=== PATIENT | male | born 1965 | race Caucasian/White ===

== ENCOUNTER 2016-07-28 07:47 | Inpatient (IN) | payer OTHER ==
[~2016-07-28] VITALS: Ht 195.6 cm; Wt 84.4 kg
[~2016-07-28 07:47] MED LIST: ATEN-51 PO; LEVE-5 PO; LEVE100018 PO; PHEN300C2 PO; PHEN300C4 PO
[2016-07-28 08:53] LABS: CHLORIDE 102 mmol/L (97-110); POTASSIUM 3.8 mmol/L (3.5-5.1); SODIUM 141 mmol/L (135-144)
[2016-07-28 08:55] LABS: CREATININE 0.85 mg/dl (0.61-1.24)
[2016-07-28 08:56] LABS: ANION GAP 25 (8-16); CARBON DIOXIDE 18 mmol/L (21-31)
[2016-07-28 08:57] LABS: BLOOD UREA NITROGEN 13 mg/dl (7-20); CALCIUM 8.8 mg/dl (8.4-10.2); GLUCOSE 234 mg/dl (70-220)
[2016-07-28 09:01] LABS: BARBITURATES Negative (NEGATIVE); BENZODIAZEPINES Positive (NEGATIVE); CANNABINOIDS Positive (NEGATIVE); CARBAMAZEPINE (TEGRETOL) < 3.0 ug/ml (8.0-12.0); COCAINE Negative (NEGATIVE); ETHANOL < 10.0 mg/dl; OPIATES Negative (NEGATIVE)
[2016-07-28 09:04] LABS: VALPROATE < 10 ug/ml (50-100)
[2016-07-28] MEDS ORDERED: PHENYTOIN 1,000 MG in SOD CHLORIDE 0.9% 80 ML IVPB STA (09:08)
[2016-07-28 09:18] LABS: TROPONIN-I < 0.010 ng/ml (0.00-0.12)
[2016-07-28 09:23] LABS: BASOPHILS % 0.3 % (0.0-2.0); EOSINOPHILS # 0.1 10^3/ul (0.0-0.5); EOSINOPHILS % 0.4 % (0.0-7.0); HEMATOCRIT 41.4 % (42.0-52.0); HEMOGLOBIN 14.1 g/dl (14.0-18.0); LYMPHOCYTES # 1.1 10^3/ul (0.8-2.9); LYMPHOCYTES % 6.3 % (15.0-51.0); MEAN CORPUSCULAR HEMOGLOBIN 32.6 pg (29.0-33.0); MEAN CORPUSCULAR VOLUME 95.8 fl (82.0-101.0); MEAN PLATELET VOLUME 7.8 fl (7.4-10.4); MONOCYTE # 0.7 10^3/ul (0.3-0.9); MONOCYTES % 3.9 % (0.0-11.0); NEUTROPHILS % 89.1 % (39.0-77.0); PLATELET COUNT 268 10^3/UL (140-440); RED BLOOD COUNT 4.33 10^6/ul (4.70-6.10); RED CELL DISTRIBUTION WIDTH 13.3 % (11.5-14.5); UNCORRECTED WBC 16.8 10^3/ul (4.8-10.8); WHITE BLOOD COUNT 16.8 10^3/ul (4.8-10.8)
[2016-07-28 09:24] LABS: CONDITION 1
--- NOTE | 2016-07-28 09:33 | RADRPT ---
PROCEDURE: CT Brain without contrast. CLINICAL INDICATION: Seizure. Altered mental status and confusion. TECHNIQUE: A CT of the brain without contrast was performed utilizing axial sections from the skul l base through the vertex. The patient was scanned without intravenous contrast enhancement. Sagitta l and coronal reformatted images were obtained using the data from the axial images. Total exam DLP is 110.25 mGy-cm. CTDIvol is 44.26 mGy. One or more of the following dose reduction techniques we re used: Automated exposure control, adjustment of the mA and/or kV according to patient size, use o f iterative reconstruction technique. COMPARISON: None available FINDINGS: There is an old infarct with encephalomalacia in the right temporal lobe posteriorly in a region shaina suring 4.3 x 2.2 cm in AP and transverse dimensions. The fletcher and white matter differentiation is ot herwise normal. The ventricles and cisterns are normal. There is no intracranial hemorrhage or space-occupying lesion. There is no skull fracture or lytic lesion. IMPRESSION: 1. 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 2. No evidence of recent infarct. 3. No intracranial hemorrhage. 4. Otherwise unremarkable noncontrast CT scan of the brain. RPTAT: QQ .Arturo Craven MD, MD Date Time Electronically viewed and signed by .Arturo Craven MD, on 07/28/2016 09:33 .R/
--- NOTE | 2016-07-28 09:56 | ERA ---
ER Documentation Chief Complaint Date/Time DATE: 07/28/16 TIME: 09:49 Chief Complaint Seizure at home witnessed by girlfriend and RA lasted 20 min postictal HPI 51-year-old male reported history of seizure who presents to the emergency room with a witnessed seizure. EMS reports that the patient had a generalized tonic- clonic seizure that lasted approximately 20 minutes. The patient is postictal upon arrival. He was given benzodiazepines via EMS and Accu-Chek in the field was normal. There is report of possible seizure history. The patient arrives with medications that include Dilantin and Keppra. EMS was given report that the patient has been compliant with medications, no fevers, no trauma. The patient is obtunded and not able to give a history. ROS Encephalopathic unable to give history. PMhx/Soc Postictal History of Surgery: No Anesthesia Reaction: No Hx Neurological Disorder: Yes (SEIZURE) Hx Respiratory Disorders: No Hx Cardiac Disorders: Yes (HTN) Hx Psychiatric Problems: No Hx Miscellaneous Medical Probl: No Smoking Status: Unknown if ever smoked FmHx Family History: No diabetes Physical Exam Vitals Vital Signs Date Time Temp Pulse Resp B/P Pulse Ox O2 Delivery O2 Flow Rate FiO2 07/28/16 07:56 97.6 83 20 162/90 90 Physical Exam General: Sonorous, protecting airway Head: Normocephalic, atraumatic. Eyes: Pupils equally reactive, EOM intact ENT: Dry mucous membranes Neck: Supple, no lymphadenopathy Respiratory: Lungs clear bilaterally, no distress Cardiovascular: RRR, no murmurs, rubs, or gallops Abdominal: Soft, non-tender, non-distended, no peritoneal signs : Deferred MSK: No edema, no unilateral swelling Neurologic: Sonorous and postictal, appears to be moving all 4 extremities Skin: No rash Result Diagram: 07/28/16 0845 07/28/16 0820 Results 24 hrs Laboratory Tests Test 07/28/16 08:20 07/28/16 08:45 Anion Gap 25 Blood Urea Nitrogen 13mg/dl Calcium Level 8.8mg/dl Carbamazepine (Tegretol) Level < 3.0ug/ml Carbon Dioxide Level 18mmol/L Chloride Level 102mmol/L Creatinine 0.85mg/dl Ethyl Alcohol Level < 10.0mg/dl Glucose Level 234mg/dl Phenytoin (Dilantin) Level 3.3ug/ml Potassium Level 3.8mmol/L Sodium Level 141mmol/L Troponin I < 0.010ng/ml Urine Amphetamines Screen Negative Urine Barbiturates Negative Urine Benzodiazepines Screen Positive Urine Cannabinoids Positive Urine Cocaine Screen Negative Urine Opiates Screen Negative Valproic Acid (Depakene) Level < 10ug/ml Basophils # 0.010^3/ul Basophils % 0.3% Eosinophils # 0.110^3/ul Eosinophils % 0.4% Hematocrit 41.4% Hemoglobin 14.1g/dl Lymphocytes # 1.110^3/ul Lymphocytes % 6.3% Mean Corpuscular Hemoglobin 32.6pg Mean Corpuscular Hemoglobin Concent 34.0g/dl Mean Corpuscular Volume 95.8fl Mean Platelet Volume 7.8fl Monocytes # 0.710^3/ul Monocytes % 3.9% Neutrophils # 15.010^3/ul Neutrophils % 89.1% Nucleated Red Blood Cells # 0.010^3/ul Nucleated Red Blood Cells % 0.0/100WBC Platelet Count 12293^3/UL Red Blood Count 4.3310^6/ul Red Cell Distribution Width 13.3% White Blood Count 16.810^3/ul Current Medications Medications (Trade) Dose Ordered Sig/Yessy Route PRN Reason Start Time Stop Time Status Last Admin Dose Admin Phenytoin/Sodium Chloride (Dilantin/NS) 100 ml @ 200 mls/hr ONCE STAT IVPB 07/28/16 09:08 07/28/16 09:37 DC Procedures/MDM EKG, MONITORS, & DIAGNOSTIC IMAGING: EKG: I reviewed and interpreted a 12-lead EKG. Rhythm: Normal sinus rhythm Ectopy: None Intervals: No abnormalities ST segments: No elevations or depressions T waves: No contiguous inversions CT brain: IMPRESSION: 1. 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 2. No evidence of recent infarct. 3. No intracranial hemorrhage. 4. Otherwise unremarkable noncontrast CT scan of the brain. RPTAT: QQ LAB INTERPRETATION: Leukocytosis that is likely secondary to seizure, no evidence of infection subtherapeutic Dilantin MEDICAL DECISION MAKING: The patient presents in a postictal state likely secondary to a complex generalized tonic-clonic seizure. The seizure lasted for reported 20 minutes that seems to be reliable from phone call to EMS arrival. Seizure was responsive to benzodiazepine. Accu-Chek was normal. The patient does take seizure medication including Dilantin and Keppra. This is possibly related to medication noncompliance. However, no family is available to corroborate history. No signs of infection or trauma. ER COURSE: The patient continued to be sonorous with only mild improvement during a 2 hour observation in the emergency department. He continues to protect his airway and hypoxia has been corrected with supplemental oxygen. The patient is more appropriate and awake. The patient was found to be subtherapeutic on his Dilantin. Dilantin load was initiated. The patient has had no further seizure but continues to have significant postictal state. Unclear baseline given the patient's CT showing chronic encephalomalacia however given the complex presentation I believe inpatient hospitalization would be appropriate. The patient did have leukocytosis that is likely secondary to demargination in the setting of seizure. No evidence of infection, no fever, no evidence of meningitis. No indication for lumbar puncture. Inpatient hospitalization with observation would be appropriate. I kept the patient and/or family informed of laboratory and diagnostic imaging results throughout the emergency room course. DISPOSITION PLAN: Medical surgical admission CONSULTATION: Accepting care team and consultations: I discussed the current laboratory data, diagnostic imaging and emergency care provided. Admitting team: Dr. Rodriguez Admitting team indication: Insurance directed Departure Diagnosis: Primary Impression: Subtherapeutic serum dilantin level Additional Impressions: Generalized tonic-clonic seizure Leukocytosis Qualified Code: D72.829 - Leukocytosis, unspecified type Encephalopathy acute Condition: Stable CARMELA SINGH MD Jul 28, 2016 09:56
[2016-07-28] MEDS ORDERED: ACETAMINOPHEN 325 MG TAB PO PRN (10:00)
[2016-07-28] MEDS ORDERED: ONDANSETRON 4 MG INJ IV PRN ×2 (10:00→14:30)
[2016-07-28] MEDS ORDERED: PHEN100C PO (10:31)
[2016-07-28] MEDS ORDERED: LEVE10006 PO (10:32)
[2016-07-28] MEDS ORDERED: ATEN-51 PO (10:32)
[2016-07-28] MEDS ORDERED: NACL 0.9% 3 ML SYG IV SCH (14:30)
[2016-07-28] MEDS ORDERED: morphine 2 MG INJ IV PRN (14:30)
[2016-07-28] MEDS ORDERED: ALBUTEROL/IPRATROPIUM (NEB) 3 ML AMP HHN PRN (14:30)
[2016-07-28] MEDS ORDERED: ACETAMINOPHEN 650 MG SUPP PR PRN (14:30)
[2016-07-28] MEDS ORDERED: GLUCOSE GEL 15 GRAM TUBE PO PRN ×4 (15:00→16:00)
[2016-07-28] MEDS ORDERED: GLUCAGON 1 MG INJ IM PRN ×2 (15:00→16:00)
[2016-07-28] MEDS ORDERED: DEXTROSE 50% 50 ML SYRINGE IV PRN ×4 (15:00→16:00)
[2016-07-28] MEDS ORDERED: GLUCOSE GEL 15 GRAM TUBE BUCCAL PRN ×2 (15:00→16:00)
[2016-07-28 15:33] VITALS: TEMP 99.1
[2016-07-28 16:57] VITALS: BP 122/69; PULSE 100; RESP 20; Ht 195.6 cm; Wt 84.4 kg
[2016-07-28] MEDS: ATENOLOL 25 MG TAB PO SCH (17:31)
[2016-07-28] MEDS: DEXTROSE 5%-0.45% NACL 1,000 ML IV SCH (17:41)
[2016-07-28] MEDS: INSULIN ASPART [NOVOLOG] 3 ML PEN SC SCH ×3 (17:43→21:00)
--- NOTE | 2016-07-28 18:08 | HP ---
DATE OF ADMISSION: 07/28/2016 TIME SEEN: 11:00 a.m. CHIEF COMPLAINT: Seizure. HISTORY OF PRESENT ILLNESS: The patient is a 51-year-old male with a history of seizure, hypertensi on and CVA per CT scan, who was brought to the ER from home after a witnessed tonic-clonic type of s eizure. Reportedly the seizure lasted about 20 minutes, and the patient seems to be compliant with his anti-seizure medications. The patient received 5 mg of Versed enroute to the emergency room. W hen he presented to the ER, patient was obtunded and was not able to give any history. CT in the ER showed old infarct with encephalomalacia in the right temporal lobe. Laboratory value shows a WBC of almost 17,000, bicarb 18 and glucose 234. His initial blood pressure 162/90, heart rate 83, resp iratory rate 20, temperature 97.6, oxygen saturation 90% on room air and currently 97% on 2 liters. When I asked the patient, he was lying in the gurney in no acute distress, no sign of seizure. Jackson maribel, he is aphasic and did not answer any questions and did not follow any commands, even though his eyes are wide open and is awake and able to move all his extremities spontaneously. The patient wa s given Dilantin in the ER. REVIEW OF SYSTEMS: Unable to fully assess. PAST MEDICAL HISTORY: As per HPI. PAST SURGICAL HISTORY: Unknown. SOCIAL HISTORY: Unknown. ALLERGIES: Unknown. HOME MEDICATIONS: Listed include atenolol, Keppra and Dilantin. PHYSICAL EXAMINATION: VITAL SIGNS: Blood pressure 155/87, heart rate 90, respiratory rate 18, temperature 98.4, oxygen sa turation 95% on 2 liters. GENERAL: The patient lying on a gurney, is awake, spontaneously moving all extremities; however, is nonverbal at this point and not following any commands. HEENT: No obvious head deformity. His pupils are reactive to light. CARDIOVASCULAR: Tachycardic with regular rhythm. LUNGS: Clear. ABDOMEN: Soft. No grimaces noted on palpation. There are positive bowel sounds. EXTREMITIES: No edema. NEUROLOGIC: The patient not following any commands; however, not able to fully assess, but noted th at he is spontaneously able to move all extremities. LABORATORY: Pertinent positives as mentioned in the HPI. IMAGING: Brain CT shows old infarct with encephalomalacia in the right temporal lobe, otherwise no evidence of recent infarct, hemorrhage or shift. IMPRESSION: 1. Seizure, currently postictal state. 2. Altered mental status secondary to postictal state. 3. Hypertension. 4. Systemic inflammatory response syndrome, as evidenced by leukocytosis and tachycardia, likely se izure induced. 5. Systemic inflammatory response syndrome as evidenced by leukocytosis and tachycardia, likely str ess-induced from the seizure. 6. Hyperglycemia, unknown if the patient is diabetic, but will check an A1c. 7. History of old cerebrovascular accident with encephalomalacia. PLAN: The patient will be admitted to telemetry unit. Seizure precaution will be implemented. CT of the head as mentioned above showed old infarct with encephalomalacia. We will obtain an MRI of t he brain. He will not be continued with Dilantin and Keppra and as needed Ativan will be added. Wi ll check his Dilantin level. We will place a neurology consult. Given the presentation of SIRS, wh ich could be stress-induced from seizure, but will work him up for possible infectious etiologies wh ich could potentially be also trigger for seizure. I will order a chest x-ray and urinalysis, as we ll as a urine culture and blood culture. Will check lactic acid and will also check for a CK creati nine kinase. In the morning, we will check for A1c given presentation of hyperglycemia within a pat ient at least at this point not known to be diabetic. Further workup and management will be per clinical course. Dictated By: VIC JUDD/MIKE Conf#: [id number] DID#: [id number]
[2016-07-28 20:08] VITALS: BP 141/74; RESP 18
[2016-07-28] MEDS: LEVETIRACETAM 500 MG TAB PO SCH (21:33)
[2016-07-28] MEDS: PHENYTOIN 100 MG CAP PO SCH (21:33)
[2016-07-28] MEDS: HEPARIN 5,000 UNIT/0.5 ML SYG SC SCH (21:34)
[2016-07-28] MEDS: INSULIN GLARGINE [LANtus] 3 ML PEN SC SCH (21:35)
[2016-07-29] MEDS ORDERED: INSULIN ASPART [NOVOLOG] 3 ML PEN SC SCH
[2016-07-29] MEDS: DEXTROSE 5%-0.45% NACL 1,000 ML IV SCH ×2 (00:30→10:30)
[2016-07-29] MEDS: Insulin NOVOLOG SS MODERATE Algorithm(NPO/TPN/ENTERAL FEEDS) SC SCH ×4 (00:52→17:07)
[2016-07-29] MEDS ORDERED: ACCUCHECK AT 2AM (Patients on SS coverage) XX SCH (02:00)
[2016-07-29] MEDS: HALOPERIDOL 5 MG INJ IM PRN ×3 (02:41→15:34)
[2016-07-29] MEDS: LORAZEPAM 2 MG INJ IV PRN ×3 (05:14→21:13)
[2016-07-29] MEDS ORDERED: ACCUCHECK XX SCH (06:00)
[2016-07-29 06:37] LABS: BASOPHILS % 0.1 % (0.0-2.0); HEMATOCRIT 41.9 % (42.0-52.0); HEMOGLOBIN 14.7 g/dl (14.0-18.0); LYMPHOCYTES # 0.8 10^3/ul (0.8-2.9); LYMPHOCYTES % 4.2 % (15.0-51.0); MEAN CORPUSCULAR HEMOGLOBIN 32.8 pg (29.0-33.0); MEAN CORPUSCULAR HGB CONC 34.9 g/dl (32.0-37.0); MEAN CORPUSCULAR VOLUME 93.7 fl (82.0-101.0); MEAN PLATELET VOLUME 7.9 fl (7.4-10.4); MONOCYTE # 0.8 10^3/ul (0.3-0.9); MONOCYTES % 4.2 % (0.0-11.0); NEUTROPHIL # 16.8 10^3/ul (1.6-7.5); NEUTROPHILS % 91.5 % (39.0-77.0); PLATELET COUNT 264 10^3/UL (140-440); RED BLOOD COUNT 4.47 10^6/ul (4.70-6.10); RED CELL DISTRIBUTION WIDTH 13.1 % (11.5-14.5); UNCORRECTED WBC 18.4 10^3/ul (4.8-10.8); WHITE BLOOD COUNT 18.4 10^3/ul (4.8-10.8)
[2016-07-29 06:44] LABS: CONDITION 1; LH ANALYZER COMMENTS 1
[2016-07-29 06:47] LABS: ALBUMIN 4.6 g/dl (3.3-4.9)
[2016-07-29 06:48] LABS: POTASSIUM 3.8 mmol/L (3.5-5.1)
[2016-07-29 06:49] LABS: CREATININE 0.6 mg/dl (0.61-1.24)
[2016-07-29 06:50] LABS: ALBUMIN/GLOBULIN RATIO 1.35; BILIRUBIN,INDIRECT 0.4 mg/dl (0-1.1); BILIRUBIN,TOTAL 0.4 mg/dl (0.2-1.3); CALCIUM 9.5 mg/dl (8.4-10.2); MAGNESIUM 1.8 mg/dl (1.7-2.5)
[2016-07-29 06:51] LABS: CHOL/HDL RATIO 2.4 RATIO
[2016-07-29 07:18] LABS: THYROID STIMULATING HORMONE 1.08 MIU/L (0.465-4.680)
[2016-07-29 07:32] VITALS: BP 160/98; RESP 20
[2016-07-29] MEDS: ASPIRIN 81 MG TAB PO SCH (09:18)
[2016-07-29] MEDS: LEVETIRACETAM 500 MG TAB PO SCH ×2 (09:18→20:57)
[2016-07-29] MEDS: HEPARIN 5,000 UNIT/0.5 ML SYG SC SCH (09:20)
[2016-07-29] MEDS: ATENOLOL 25 MG TAB PO SCH (09:21)
[2016-07-29] MEDS ORDERED: DIPHENHYDRAMINE 50 MG INJ IV PRN (13:00)
[2016-07-29] MEDS ORDERED: DIPHENHYDRAMINE 50 MG INJ IV ONE (13:00)
--- NOTE | 2016-07-29 15:55 | PN ---
Date/Time of Note Date/Time of Note DATE: 07/29/16 TIME: 15:50 Assessment/Plan VTE Prophylaxis VTE Prophylaxis Intervention: SCD's Lines/Catheters IV Catheter Type (from Nrs): Peripheral IV Urinary Cath still in place: No Assessment/Plan Assessment/Plan 1. Seizure, currently postictal state. - continue with keppra, neuro c/s, cannot complete MRI brain because of agitation, EEG, ativan prn 2. Altered mental status secondary to postictal state - toxic metabolic encephalopathy 3. Hypertension essential - hold medications 4. Systemic inflammatory response syndrome, as evidenced by leukocytosis and tachycardia, likely seizure induced. - stable 6. Hyperglycemia- A1c - 5.7 7. Old cerebrovascular accident with encephalomalacia - monitor acute changes 8. GI ppx - pepcid 9. DVT ppx - scds dispo - f/u recs, EEG, monitor for overriding seizures, as per clinical course. this progress note took greater than 40 minutes to complete Subjective 24 Hr Interval Summary Free Text/Dictation Patient admitted for seizures on medications. Patient has been agitated, with waxing and waning of mentation as per nursing. Spoke to the nurse about the care plan. 20 minutes spent. Exam/Review of Systems Vital Signs Vitals Vital Signs Date Time Temp Pulse Resp B/P Pulse Ox O2 Delivery O2 Flow Rate FiO2 07/29/16 07:32 98.1 98 20 160/98 96 07/28/16 16:57 Room Air 07/28/16 12:30 2.0 Intake and Output 07/28/16 07/28/16 07/29/16 15:00 23:00 07:00 Intake Total 100 ml 300 ml Output Total 500 ml 300 ml Balance -500 ml -200 ml 300 ml Exam Gen Omi: NAD, confused HEENT: NC/AT, PERRLA, EOMI, no pharyngeal erythema, no tonsillar exudates, no lymphadenopathy, no JVD, no carotid bruits NECK: supple, no thyromegaly THORAX: symmetrical, no obvious deformities CV: S1S2, RRR, no M/G/R Lungs: CTAB no W/C/R/R Abd: soft, NT/ND, +BS, no rebound, no guarding, neg HSM EXT: no edema, no ecchymosis, no clubbing, FROM Neuro: stares blankly, otherwise no acute changes Psych: withdrawn Skin: C/D/I Results Result Diagram: 07/29/16 0554 07/29/16 0554 Results 24 hrs Laboratory Tests Test 07/28/16 17:39 07/28/16 21:26 07/29/16 00:11 07/29/16 05:54 Bedside Glucose 183 173 196 Alanine Aminotransferase (ALT/SGPT) 31 Albumin 4.6 Albumin/Globulin Ratio 1.35 Alkaline Phosphatase 111 Anion Gap 19 H Aspartate Amino Transf (AST/SGOT) 52 H Basophils # 0.0 Basophils % 0.1 Blood Urea Nitrogen 15 Calcium Level 9.5 Carbon Dioxide Level 25 Chloride Level 100 Cholesterol Level 188 Cholesterol/HDL Ratio 2.4 Creatinine 0.60 L Direct Bilirubin 0.00 Eosinophils # 0.0 Eosinophils % 0.0 Globulin 3.40 H Glucose Level 167 HDL Cholesterol 78 H Hematocrit 41.9 L Hemoglobin 14.7 Indirect Bilirubin 0.4 LDL Cholesterol, Calculated 88 Lymphocytes # 0.8 Lymphocytes % 4.2 L Magnesium Level 1.8 Mean Corpuscular Hemoglobin 32.8 Mean Corpuscular Hemoglobin Concent 34.9 Mean Corpuscular Volume 93.7 Mean Platelet Volume 7.9 Monocytes # 0.8 Monocytes % 4.2 Neutrophils # 16.8 H Neutrophils % 91.5 H Nucleated Red Blood Cells # 0.0 Nucleated Red Blood Cells % 0.0 Platelet Count 264 Potassium Level 3.8 Red Blood Count 4.47 L Red Cell Distribution Width 13.1 Sodium Level 140 Thyroid Stimulating Hormone (TSH) 1.080 Total Bilirubin 0.4 Total Protein 8.0 Triglycerides Level 110 White Blood Count 18.4 H Test 07/29/16 05:59 07/29/16 06:37 07/29/16 12:14 Hemoglobin A1c 5.7 Bedside Glucose 156 134 Medications Medications Current Medications Dextrose/Sodium Chloride (D5-1/2ns) 1,000 ml @ 100 mls/hr Q10H IV Last administered on 07/28/16 17:41; Admin Dose 100 MLS/HR; Start 07/28/16 at 14:30 Lorazepam (Ativan) 0.5 mg Q6H PRN IV ANXIETY Last administered on 07/29/16 12: 21; Admin Dose 0.5 MG; Start 07/28/16 at 14:30 Ondansetron HCl (Zofran Inj) 4 mg Q6H PRN IV NAUSEA AND/OR VOMITING Last administered on 07/28/16 17:40; Admin Dose 4 MG; Start 07/28/16 at 14:30 Aspirin (Aspirin) 81 mg DAILY PO Last administered on 07/29/16 09:18; Admin Dose 81 MG; Start 07/29/16 at 09:00 Acetaminophen (Tylenol Supp) 650 mg Q6H PRN ND PAIN LEVEL 1-3 OR FEVER; Start 07/28/16 at 14:30 Morphine Sulfate (morphine) 2 mg Q4H PRN IV PAIN LEVEL 7-10; Start 07/28/16 at 14:30 Insulin Glargine (Lantus) 10 unit HS SC Last administered on 07/28/16 21:35; Admin Dose 10 UNIT; Start 07/28/16 at 21:00 Atenolol (Tenormin) 25 mg DAILY PO Last administered on 07/29/16 09:21; Admin Dose 25 MG; Start 07/28/16 at 14:30 Levetiracetam (Keppra) 1,000 mg BID PO Last administered on 07/29/16 09:18; Admin Dose 1,000 MG; Start 07/28/16 at 21:00 Phenytoin (Dilantin) 100 mg HS PO Last administered on 07/28/16 21:33; Admin Dose 100 MG; Start 07/28/16 at 21:00 Lorazepam (Ativan) 2 mg Q1H PRN IV SEIZURE; Start 07/28/16 at 14:30 Miscellaneous Information 1 ea NOTE XX ; Start 07/28/16 at 15:00 Glucose (Glutose) 15 gm Q15M PRN PO DECREASED GLUCOSE; Start 07/28/16 at 15:00 Glucose (Glutose) 22.5 gm Q15M PRN PO DECREASED GLUCOSE; Start 07/28/16 at 15:00 Dextrose (D50w Syringe) 25 ml Q15M PRN IV DECREASED GLUCOSE; Start 07/28/16 at 15:00 Dextrose (D50w Syringe) 50 ml Q15M PRN IV DECREASED GLUCOSE; Start 07/28/16 at 15:00 Glucagon (Glucagen) 1 mg Q15M PRN IM DECREASED GLUCOSE; Start 07/28/16 at 15:00 Glucose (Glutose) 15 gm Q15M PRN BUCCAL DECREASED GLUCOSE; Start 07/28/16 at 15: 00 Influenza Virus Vaccine (Fluzone) 0.5 ml ONCE ONCE IM* ; Start 07/31/16 at 09:00 ; Stop 07/31/16 at 09:01 Insulin Aspart (Novolog Insulin Pen) (Adult SC Insulin - Moder... Q6 SC Last administered on 07/29/16 06:40; Admin Dose 2 UNIT; Start 07/29/16 at 00:45 Haloperidol (Haldol) 4 mg Q4 PRN IM AGITATION Last administered on 07/29/16 15: 34; Admin Dose 4 MG; Start 07/29/16 at 02:30 Diphenhydramine HCl (Benadryl) 50 mg Q6H PRN IV agitation; Start 07/29/16 at 13: 00 HILARY HU MD Jul 29, 2016 15:55
[2016-07-29 20:45] VITALS: BP 132/89; RESP 20
[2016-07-29] MEDS: PHENYTOIN 100 MG CAP PO SCH (20:57)
[2016-07-29] MEDS: INSULIN GLARGINE [LANtus] 3 ML PEN SC SCH (20:59)
[2016-07-30] MEDS: Insulin NOVOLOG SS MODERATE Algorithm(NPO/TPN/ENTERAL FEEDS) SC SCH ×4 (00:43→17:54)
[2016-07-30] MEDS: HALOPERIDOL 5 MG INJ IM PRN (02:32)
[2016-07-30 05:54] LABS: BASOPHIL # 0.1 10^3/ul (0.0-0.1); BASOPHILS % 0.5 % (0.0-2.0); HEMATOCRIT 44.6 % (42.0-52.0); HEMOGLOBIN 15.2 g/dl (14.0-18.0); LYMPHOCYTES % 6.7 % (15.0-51.0); MEAN CORPUSCULAR HEMOGLOBIN 32.2 pg (29.0-33.0); MEAN CORPUSCULAR VOLUME 94.7 fl (82.0-101.0); MEAN PLATELET VOLUME 7.7 fl (7.4-10.4); MONOCYTE # 1.1 10^3/ul (0.3-0.9); MONOCYTES % 7.6 % (0.0-11.0); NEUTROPHIL # 12.5 10^3/ul (1.6-7.5); NEUTROPHILS % 85.2 % (39.0-77.0); PLATELET COUNT 260 10^3/UL (140-440); RED BLOOD COUNT 4.71 10^6/ul (4.70-6.10); RED CELL DISTRIBUTION WIDTH 12.9 % (11.5-14.5); UNCORRECTED WBC 14.7 10^3/ul (4.8-10.8); WHITE BLOOD COUNT 14.7 10^3/ul (4.8-10.8)
[2016-07-30 05:59] LABS: CONDITION 1
[2016-07-30 06:18] LABS: ALBUMIN 4.8 g/dl (3.3-4.9); POTASSIUM 4.3 mmol/L (3.5-5.1)
[2016-07-30 06:20] LABS: CREATININE 0.67 mg/dl (0.61-1.24)
[2016-07-30 06:21] LABS: ALBUMIN/GLOBULIN RATIO 1.26; BILIRUBIN,INDIRECT 0.4 mg/dl (0-1.1); BILIRUBIN,TOTAL 0.4 mg/dl (0.2-1.3); CALCIUM 9.9 mg/dl (8.4-10.2); TOTAL PROTEIN 8.6 g/dl (6.1-8.1)
[2016-07-30] MEDS: ATENOLOL 25 MG TAB PO SCH (09:00)
[2016-07-30] MEDS: ASPIRIN 81 MG TAB PO SCH (09:00)
[2016-07-30] MEDS: LEVETIRACETAM 500 MG TAB PO SCH ×2 (09:00→21:01)
[2016-07-30 09:12] VITALS: BP 158/98; RESP 22
[2016-07-30] MEDS: LORAZEPAM 2 MG INJ IV PRN (14:49)
[2016-07-30] MEDS ORDERED: hydrALAzine 20 MG INJ IV PRN (16:30)
--- NOTE | 2016-07-30 16:50 | PN ---
DATE: 07/30/2016 TIME OF EVALUATION: 1530. SUBJECTIVE DATA: The patient remains confused. The patient is being taken for a brain MRI. OBJECTIVE DATA: VITAL SIGNS: Temperature 97.8, pulse rate 80, respiratory rate 22, blood pressure 158/98, oxygen saturation 94% on room air. GENERAL: This is a 51-year-old male patient lying in bed in no apparent distress. HEENT: Head normocephalic and atraumatic. Anicteric sclerae. Conjunctivae clear. ENT: Nasal septum is midline. Oral mucosa is dry. NECK: Supple. No JVD noticed. RESPIRATORY: Bilaterally diminished breath sounds. No adventitious breath sounds. No use of accessory muscles of respiration. CARDIAC: Regular rate and rhythm. No murmurs heard. ABDOMEN: Soft, nontender and nondistended. Bowel sounds positive in all 4 quadrants. GENITOURINARY: Deferred. EXTREMITIES: No cyanosis, no clubbing, no edema. Peripheral pulses palpable. NEUROLOGIC: The patient is awake and alert. Blank stare. Does not follow any commands. PSYCHIATRIC: Withdrawn. LABORATORY AND DIAGNOSTIC DATA: WBC 14.7, hemoglobin 15.0, hematocrit 44.6, platelet count 260. Sodium 140, potassium 4.3, chloride 104, carbon dioxide 20 , anion gap 23, BUN 20, creatinine 0.6, glucose 151, calcium 9.9. ASSESSMENT AND PLAN: 1. Seizure disorder. Continue anticonvulsants. Continue seizure precautions. Pending brain MRI and electroencephalography. Continue Ativan p.r.n. for breakthrough seizures. 2. Acute encephalopathy, most probably secondary to postictal state (toxic metabolic encephalopathy). Pending brain MRI and electroencephalography. 3. Dysphagia, most probably secondary to underlying encephalopathy. Was seen and evaluated by Speech Therapy. Continue recommended diet. Continue to monitor the patient for aspiration. 4. Essential hypertension. Continue antihypertensives including p.r.n. antihypertensives. 5. Systemic inflammatory response syndrome with leukocytosis and tachycardia. Most probably non-infectious in origin. The patient remains afebrile. Continue to monitor. 6. Hyperglycemia. Hemoglobin A1c 5.7. Continue sliding scale insulin. 7. Hypernatremia, most probably secondary to dehydration. Will continue the patient on IV fluids. 8. Fluid, electrolytes and nutrition. Pureed diet. Aspiration precautions. 9. Deep venous thrombosis prophylaxis with bilateral sequential compression devices. 10. Gastrointestinal prophylaxis. Histamine 2 receptor blockers. 11. Plan. Continue seizure prophylaxis. Continue anti-seizure medications. Await results of brain MRI and electroencephalography. Case discussed with Dr. Victor. BLADE VICTOR MD, AM/MIKE Conf#: [id number] DID#: [id number]
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
--- NOTE | 2016-07-30 17:23 | RADRPT ---
AMENDMENT: 07/30/2016 5:32:17 PM Amado Padron (Joe) Results called to the patient's nurse John Banegas RN at 05:27 p.m., 07/30/2016. PROCEDURE: MRI Brain without contrast. CLINICAL INDICATION: Seizures TECHNIQUE: Multiplanar MRI of the brain without contrast was performed on a 3.0 T scanner with the following sequences obtained: T1-weighted, T2-weighted/FLAIR, diffusion weighted (with ADC map), GR E. COMPARISON: CT brain 05/01/2015 FINDINGS: There are patient motion related artifacts somewhat limiting evaluation. There are areas of increased T2-weighted signal intensity involving the mesial right temporal lobe e xtending into the right thalamus, and also involving the parasagittal right frontal region along the cingulate gyrus with associated increased T2-weighted FLAIR signal intensity; these areas appear re latively isointense on the ADC map. No intracranial hemorrhage is seen. There is an area of enceph alomalacia in the right temporal lobe with mild adjacent gliosis. No significant mass effect is seen. No midline shift is identified. The ventricles and sulci are mildly enlarged, compatible with generalized volume loss. Flow voids are identified in the proximal intracranial arteries and dural sinuses suggesting patency . The mastoid air cells and paranasal sinuses are grossly clear. IMPRESSION: 1. Signal abnormality in the mesial right temporal lobe, adjacent thalamus, and right frontal/cingu late gyrus region. Findings may reflect postictal changes. Differential considerations include rec ent ischemic changes; herpes encephalitis should be also considered, and excluded. 2. Right temporal encephalomalacia. 3. Mild generalized volume loss. 4. Evaluation somewhat limited due to motion. RPTAT: EE .Amado Padron MD, MD Date Time Electronically viewed and signed by .Amado Padron MD, MD on 07/30/2016 17:33 .O/
[2016-07-30] MEDS: SOD CHLORIDE 0.45% 1,000 ML IV SCH ×2 (17:50→21:14)
[2016-07-30] MEDS: FAMOTIDINE 20 MG INJ IV SCH (17:59)
[2016-07-30 19:42] VITALS: BP 156/93; RESP 20
[2016-07-30] MEDS: INSULIN GLARGINE [LANtus] 3 ML PEN SC SCH (20:57)
[2016-07-30] MEDS: PHENYTOIN 100 MG CAP PO SCH (21:01)
--- NOTE | 2016-07-30 22:17 | SP ---
DATE OF PROCEDURE: 07/30/2016 PROCEDURE: Electroencephalogram. HISTORY: This is a 51-year-old male with history of traumatic brain injury and stroke, was admitted following possible seizures. CURRENT MEDICATIONS: Not known. PROCEDURE: Utilizing a 16-channel EEG machine, cap scalp electrodes were applied in accordance with International 10/20 system. [id number] and [id number] montages were displayed. Electrical i mpedances were measured and reported. DESCRIPTION: During the resting state, posterior dominant rhythm of about 7 to 8 Hz was seen bihemi spherically. Intermittent epileptiform activity, mainly in the left frontal region was seen through out the tracing. Photic stimulation had no response. Hyperventilation was not performed. INTERPRETATION: This is an abnormal EEG because of presence of generalized bihemispheric background slowing with intermittent epileptiform discharges in the left frontal region, which is epileptogeni c. Please correlate these findings with the patient's clinical picture. Dictated By: EKATERINA HART/MIKE Conf#: [id number] DID#: [id number]
[2016-07-31] MEDS: Insulin NOVOLOG SS MODERATE Algorithm(NPO/TPN/ENTERAL FEEDS) SC SCH ×4 (00:21→18:00)
[2016-07-31 06:24] LABS: EOSINOPHILS % 0.1 % (0.0-7.0); HEMOGLOBIN 15.2 g/dl (14.0-18.0); LYMPHOCYTES # 1.2 10^3/ul (0.8-2.9); LYMPHOCYTES % 10.2 % (15.0-51.0); MEAN CORPUSCULAR HEMOGLOBIN 32.7 pg (29.0-33.0); MEAN CORPUSCULAR HGB CONC 34.5 g/dl (32.0-37.0); MEAN CORPUSCULAR VOLUME 94.6 fl (82.0-101.0); MEAN PLATELET VOLUME 7.9 fl (7.4-10.4); MONOCYTES % 7.9 % (0.0-11.0); NEUTROPHIL # 9.9 10^3/ul (1.6-7.5); NEUTROPHILS % 81.8 % (39.0-77.0); PLATELET COUNT 260 10^3/UL (140-440); RED BLOOD COUNT 4.65 10^6/ul (4.70-6.10); UNCORRECTED WBC 12.1 10^3/ul (4.8-10.8); WHITE BLOOD COUNT 12.1 10^3/ul (4.8-10.8)
[2016-07-31 06:25] LABS: MAGNESIUM 2.3 mg/dl (1.7-2.5); PHOSPHORUS 3.9 mg/dl (2.5-4.9)
[2016-07-31 06:29] LABS: CREATININE 0.7 mg/dl (0.61-1.24)
[2016-07-31 06:30] LABS: CALCIUM 9.9 mg/dl (8.4-10.2)
[2016-07-31 06:32] LABS: CONDITION 1
[2016-07-31] MEDS ORDERED: INFLUENZA VIRUS VACCINE 0.5 ML SYG IM* ONE (09:00)
[2016-07-31] MEDS: LEVETIRACETAM 500 MG TAB PO SCH ×2 (09:00→20:40)
[2016-07-31] MEDS: ATENOLOL 25 MG TAB PO SCH (09:00)
[2016-07-31] MEDS: ASPIRIN 81 MG TAB PO SCH (09:00)
[2016-07-31 09:51] VITALS: BP 153/91; RESP 22
[2016-07-31] MEDS: FAMOTIDINE 20 MG INJ IV SCH ×2 (10:16→20:39)
--- NOTE | 2016-07-31 10:46 | PN ---
Date/Time of Note Date/Time of Note DATE: 07/31/16 TIME: 10:37 Assessment/Plan VTE Prophylaxis VTE Prophylaxis Intervention: SCD's Lines/Catheters IV [facility]from [facility] Peripheral IV Urinary Cath still in place: No Assessment/Plan Chief Complaint/Hosp Course 1. Seizure disorder. Continue anticonvulsants. Continue seizure precautions. 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 Lumbar puncture ordered. The patient will be started on empiric acyclovir. Will involve infectious diseases on the case. Continue Ativan p.r.n. for breakthrough seizures. Neurology following. 2. Acute encephalopathy, most probably secondary to postictal state (toxic metabolic encephalopathy). Reviewed brain MRI findings. 3. Dysphagia, most probably secondary to underlying encephalopathy. Was seen and evaluated by Speech Therapy. Continue to monitor the patient for aspiration. 4. Essential hypertension. Continue antihypertensives including p.r.n. antihypertensives. 5. Systemic inflammatory response syndrome with leukocytosis and tachycardia. Etiology unclear. Will involve infectious diseases on the case. The patient remains afebrile. Continue to monitor. 6. Hyperglycemia. Hemoglobin A1c 5.7. Continue sliding scale insulin. 7. Hypernatremia, most probably secondary to dehydration. Will continue the patient on IV fluids. 8. Fluid, electrolytes and nutrition. Pureed diet. Aspiration precautions. 9. Deep venous thrombosis prophylaxis with bilateral sequential compression devices. 10. Gastrointestinal prophylaxis. Histamine 2 receptor blockers. 11. Continue seizure prophylaxis. Continue anti-seizure medications. Start empiric acyclovir. Call infectious diseases. Case discussed with Dr. Mayer. Problems: Subjective 24 Hr Interval Summary Free Text/Dictation Remains afebrile. Patient continues to have seizures. Exam/Review of Systems Vital Signs Vitals Vital Signs Date Time Temp Pulse Resp B/P Pulse Ox O2 Delivery O2 Flow Rate FiO2 07/31/16 09:51 97.5 22 153/91 95 Room Air 07/30/16 19:42 104 07/28/16 12:30 2.0 Intake and Output 07/30/16 07/30/16 07/31/16 14:59 22:59 06:59 Intake Total 150 ml 840 ml Balance 150 ml 840 ml Exam GENERAL: This is a 51-year-old male patient lying in bed in no apparent distress. HEENT: Head normocephalic and atraumatic. Anicteric sclerae. Conjunctivae clear. ENT: Nasal septum is midline. Oral mucosa is dry. NECK: Supple. No JVD noticed. RESPIRATORY: Bilaterally diminished breath sounds. No adventitious breath sounds. No use of accessory muscles of respiration. CARDIAC: Regular rate and rhythm. No murmurs heard. ABDOMEN: Soft, nontender and nondistended. Bowel sounds positive in all 4 quadrants. GENITOURINARY: Deferred. EXTREMITIES: No cyanosis, no clubbing, no edema. Peripheral pulses palpable. NEUROLOGIC: The patient is awake and alert. Follows commands. Moves all four extremities. PSYCHIATRIC: Withdrawn. Results Result Diagram: 07/31/1644407/31/16444 Results 24 hrs Laboratory Tests Test 07/30/16 12:06 07/30/16 17:49 07/30/16 20:55 07/31/16 00:05 Bedside Glucose 127 198 190 239 H Test 07/31/16 04:45 07/31/16 05:48 Anion Gap 21 H Basophils # 0.0 Basophils % 0.0 Blood Urea Nitrogen 31 H Calcium Level 9.9 Carbon Dioxide Level 28 Chloride Level 107 Creatinine 0.70 Eosinophils # 0.0 Eosinophils % 0.1 Glucose Level 100 # Hematocrit 44.0 Hemoglobin 15.2 Lymphocytes # 1.2 Lymphocytes % 10.2 L Magnesium Level 2.3 Mean Corpuscular Hemoglobin 32.7 Mean Corpuscular Hemoglobin Concent 34.5 Mean Corpuscular Volume 94.6 Mean Platelet Volume 7.9 Monocytes # 1.0 H Monocytes % 7.9 Neutrophils # 9.9 H Neutrophils % 81.8 H Nucleated Red Blood Cells # 0.0 Nucleated Red Blood Cells % 0.0 Phenytoin (Dilantin) Level 12.7 Phosphorus Level 3.9 Platelet Count 260 Potassium Level 4.0 Red Blood Count 4.65 L Red Cell Distribution Width 13.0 Sodium Level 152 H White Blood Count 12.1 H Bedside Glucose 124 Medications Medications Current Medications Lorazepam (Ativan) 0.5 mg Q6H PRN IV ANXIETY Last administered on 07/30/16t 14: 49; Admin Dose 0.5 MG; Start 07/28/16 at 14:30 Ondansetron HCl (Zofran Inj) 4 mg Q6H PRN IV NAUSEA AND/OR VOMITING Last administered on 07/28/16 17:40; Admin Dose 4 MG; Start 07/28/16 at 14:30 Aspirin (Aspirin) 81 mg DAILY PO Last administered on 07/29/16 09:18; Admin Dose 81 MG; Start 07/29/16 at 09:00 Acetaminophen (Tylenol Supp) 650 mg Q6H PRN [place] PAIN LEVEL 1-3 OR FEVER; Start 07/28/16 at 14:30 Morphine Sulfate (morphine) 2 mg Q4H PRN IV PAIN LEVEL 7-10; Start 07/28/16 at 14:30 Insulin Glargine (Lantus) 10 unit HS SC Last administered on 07/30/16 20:57; Admin Dose 10 UNIT; Start 07/28/16 at 21:00 Atenolol (Tenormin) 25 mg DAILY PO Last administered on 07/29/16 09:21; Admin Dose 25 MG; Start 07/28/16 at 14:30 Levetiracetam (Keppra) 1,000 mg BID PO Last administered on 07/30/16 21:01; Admin Dose 1,000 MG; Start 07/28/16 at 21:00 Lorazepam (Ativan) 2 mg Q1H PRN IV SEIZURE; Start 07/28/16 at 14:30 Miscellaneous Information 1 ea NOTE XX ; Start 07/28/16 at 15:00 Glucose (Glutose) 15 gm Q15M PRN PO DECREASED GLUCOSE; Start 07/28/16 at 15:00 Glucose (Glutose) 22.5 gm Q15M PRN PO DECREASED GLUCOSE; Start 07/28/16 at 15:00 Dextrose (D50w Syringe) 25 ml Q15M PRN IV DECREASED GLUCOSE; Start 07/28/16 at 15:00 Dextrose (D50w Syringe) 50 ml Q15M PRN IV DECREASED GLUCOSE; Start 07/28/16 at 15:00 Glucagon (Glucagen) 1 mg Q15M PRN IM DECREASED GLUCOSE; Start 07/28/16 at 15:00 Glucose (Glutose) 15 gm Q15M PRN BUCCAL DECREASED GLUCOSE; Start 07/28/16 at 15: 00 Insulin Aspart (Novolog Insulin Pen) (Adult SC Insulin - Moder... Q6 SC Last administered on 07/31/16 00:21; Admin Dose 6 UNIT; Start 07/29/16 at 00:45 Haloperidol (Haldol) 4 mg Q4 PRN IM AGITATION Last administered on 07/30/16 02: 32; Admin Dose 4 MG; Start 07/29/16 at 02:30 Diphenhydramine HCl (Benadryl) 50 mg Q6H PRN IV agitation; Start 07/29/16 at 13: 00 Phenytoin (Dilantin) 300 mg HS PO Last administered on 07/30/16 21:01; Admin Dose 300 MG; Start 07/30/16 at 21:00 Hydralazine HCl (Apresoline) 10 mg Q6H PRN IV SBP>160; Start 07/30/16 at 16:30 Famotidine 20 mg 20 mg BID IV Last administered on 07/31/16 10:16; Admin Dose 20 MG; Start 07/30/16 at 18:00 Sodium Chloride (1/2 NS) 1,000 ml @ 75 mls/hr [id number] IV Last administered on 07/30/16 21:14; Admin Dose 75 MLS/HR; Start 07/30/16 at 16:30 BLADE CHATTERJEE NP Jul 31, 2016 10:46 BLADE CHATTERJEE NP Jul 31, 2016 10:46
[2016-07-31] MEDS: LORAZEPAM 2 MG INJ IV PRN ×2 (11:02→13:45)
[2016-07-31] MEDS: SOD CHLORIDE 0.45% 1,000 ML IV SCH ×2 (11:18→19:10)
--- NOTE | 2016-07-31 11:21 | CONS ---
Date/Time of Note Date/Time of Note DATE: 07/31/16 TIME: 11:13 Consult Date/Type/Reason Admit Date/Time Jul 28, 2016 at 15:42 Initial Consult Date 07/30/16 Type of Consultation: neurology Reason for Consultation seizure management Ordering Provider: HILARY HU MD Subjective witnessed seizure at bedside today patient was verbal and attempting to answer most questions by examiner, had left gaze deviation with left tonic posturing lasting 1 min. subsided without meds with post-ictal state advised nurse to administer ativan and proceed with plans for LP to r/o HSV encephalitis Objective Vital Signs Date Time Temp Pulse Resp B/P Pulse Ox O2 Delivery O2 Flow Rate FiO2 07/31/16 09:51 97.5 22 153/91 95 Room Air 07/30/16 19:42 104 07/28/16 12:30 2.0 Intake and Output 07/30/16 07/30/16 07/31/16 15:00 23:00 07:00 Intake Total 150 ml 840 ml Balance 150 ml 840 ml initially awake and alert oriented to self and hospital slowed speech , slow to answer witnessed seizure left gaze deviation left tonic posturing post-ictally with left facial droop and left sided weakness Results/Medications Result Diagram: 07/31/16 0445 07/31/16 0445 Results 24 hrs Laboratory Tests Test 07/30/16 12:06 07/30/16 17:49 07/30/16 20:55 07/31/16 00:05 Bedside Glucose 127 198 190 239 H Test 07/31/16 04:45 07/31/16 05:48 Anion Gap 21 H Basophils # 0.0 Basophils % 0.0 Blood Urea Nitrogen 31 H Calcium Level 9.9 Carbon Dioxide Level 28 Chloride Level 107 Creatinine 0.70 Eosinophils # 0.0 Eosinophils % 0.1 Glucose Level 100 # Hematocrit 44.0 Hemoglobin 15.2 Lymphocytes # 1.2 Lymphocytes % 10.2 L Magnesium Level 2.3 Mean Corpuscular Hemoglobin 32.7 Mean Corpuscular Hemoglobin Concent 34.5 Mean Corpuscular Volume 94.6 Mean Platelet Volume 7.9 Monocytes # 1.0 H Monocytes % 7.9 Neutrophils # 9.9 H Neutrophils % 81.8 H Nucleated Red Blood Cells # 0.0 Nucleated Red Blood Cells % 0.0 Phenytoin (Dilantin) Level 12.7 Phosphorus Level 3.9 Platelet Count 260 Potassium Level 4.0 Red Blood Count 4.65 L Red Cell Distribution Width 13.0 Sodium Level 152 H White Blood Count 12.1 H Bedside Glucose 124 Medications Current Medications Lorazepam (Ativan) 0.5 mg Q6H PRN IV ANXIETY Last administered on 07/30/16 14: 49; Admin Dose 0.5 MG; Start 07/28/16 at 14:30 Ondansetron HCl (Zofran Inj) 4 mg Q6H PRN IV NAUSEA AND/OR VOMITING Last administered on 07/28/16 17:40; Admin Dose 4 MG; Start 07/28/16 at 14:30 Aspirin (Aspirin) 81 mg DAILY PO Last administered on 07/29/16 09:18; Admin Dose 81 MG; Start 07/29/16 at 09:00 Acetaminophen (Tylenol Supp) 650 mg Q6H PRN [place] PAIN LEVEL 1-3 OR FEVER; Start 07/28/16 at 14:30 Morphine Sulfate (morphine) 2 mg Q4H PRN IV PAIN LEVEL 7-10; Start 07/28/16 at 14:30 Insulin Glargine (Lantus) 10 unit HS SC Last administered on 07/30/16 20:57; Admin Dose 10 UNIT; Start 07/28/16 at 21:00 Atenolol (Tenormin) 25 mg DAILY PO Last administered on 07/29/16 09:21; Admin Dose 25 MG; Start 07/28/16 at 14:30 Lorazepam (Ativan) 2 mg Q1H PRN IV SEIZURE Last administered on 07/31/16 11:02 ; Admin Dose 2 MG; Start 07/28/16 at 14:30 Miscellaneous Information 1 ea NOTE XX ; Start 07/28/16 at 15:00 Glucose (Glutose) 15 gm Q15M PRN PO DECREASED GLUCOSE; Start 07/28/16 at 15:00 Glucose (Glutose) 22.5 gm Q15M PRN PO DECREASED GLUCOSE; Start 07/28/16 at 15:00 Dextrose (D50w Syringe) 25 ml Q15M PRN IV DECREASED GLUCOSE; Start 07/28/16 at 15:00 Dextrose (D50w Syringe) 50 ml Q15M PRN IV DECREASED GLUCOSE; Start 07/28/16 at 15:00 Glucagon (Glucagen) 1 mg Q15M PRN IM DECREASED GLUCOSE; Start 07/28/16 at 15:00 Glucose (Glutose) 15 gm Q15M PRN BUCCAL DECREASED GLUCOSE; Start 07/28/16 at 15: 00 Insulin Aspart (Novolog Insulin Pen) (Adult SC Insulin - Moder... Q6 SC Last administered on 07/31/16 00:21; Admin Dose 6 UNIT; Start 07/29/16 at 00:45 Haloperidol (Haldol) 4 mg Q4 PRN IM AGITATION Last administered on 07/30/16 02: 32; Admin Dose 4 MG; Start 07/29/16 at 02:30 Diphenhydramine HCl (Benadryl) 50 mg Q6H PRN IV agitation; Start 07/29/16 at 13: 00 Phenytoin (Dilantin) 300 mg HS PO Last administered on 07/30/16 21:01; Admin Dose 300 MG; Start 07/30/16 at 21:00 Hydralazine HCl (Apresoline) 10 mg Q6H PRN IV SBP>160; Start 07/30/16 at 16:30 Famotidine 20 mg 20 mg BID IV Last administered on 07/31/16 10:16; Admin Dose 20 MG; Start 07/30/16 at 18:00 Sodium Chloride 1,000 ml @ 75 mls/hr [id number] IV Last administered on 07/30/16 21:14; Admin Dose 75 MLS/HR; Start 07/30/16 at 16:30 Acyclovir/Sodium Chloride (Zovirax/NS) 100 ml @ 100 mls/hr Q8 IVPB ; Start 05/07 at 12:00 Levetiracetam (Keppra) 1,500 mg BID PO ; Start 07/31/16 at 21:00 Assessment/Plan Chief Complaint/Hosp Course 51 year old M hx of TBI, CVA right temporal lobe w encephalomalacia presents after generalized seizure with persistent encephalopathy, post-ictal state. Routine EEG: left frontal epileptiform discharges MRI Brain- T2 signal intensity mesial right temporal lobe extending in thalamus , parasagittal right frontal region, cingulate gyrus no hemorrhage right temporal encephalomalacia with gliosis, likely post-ictal phenomenon, HSV encephalitis Recommendations: -Ativan administered this morning for 1min. partial seizure witnessed: left gaze deviation left tonic movement -Increase Keppra dose to 1500 mg BID -Fosphenytoin 1 gram load now continue on 300 mg qhs , recheck levels tomorrow will likely increase dose tomorrow -planned for LP to rule out HSV encephalitis, ID consultation and empiric acylovir ordered Problems: ANETA GILLESPIE MD Jul 31, 2016 11:20
[2016-07-31 11:22] LABS: INR 1.13; PROTIME 14.5 Sec (12.2-14.2); PT RATIO 1.1
[2016-07-31 11:24] LABS: PARTIAL THROMBOPLASTIN TIME 24.8 Sec (25.0-35.0)
[2016-07-31] MEDS ORDERED: FOSPHENYTOIN (PE) 1,000 MG in SOD CHLORIDE 0.9% 80 ML IVPB ONE (12:00)
--- NOTE | 2016-07-31 13:22 | CONS ---
DATE OF ADMISSION: 07/28/2016 DATE OF CONSULTATION: 07/31/2016 TYPE OF CONSULTATION: Infectious Disease. REASON FOR CONSULTATION: Antibiotic management. HISTORY OF PRESENT ILLNESS:. Nick Lim is a 51-year-old male with numerous problems who com es in with seizures and is being seen for antibiotic management. Past problems include: 1. Seizures. 2. Hypertension. 3. CVA per CT scan. The patient was brought in from home after a witnessed tonic-clonic seizure which lasted about 20 mi nutes. He is compliant with his anti-seizure medicine. The patient received [address] of Versed en rout e to the emergency room. He was obtunded and was not able to give a history. CT scan in the ER show ed old infarct with encephalomalacia in the right temporal lobe. White count was almost 17,000. On admission, his white count was 16.8, H and H of 14.1 and 41.4, platelet count 268,000. Today his white count is 12.1. BUN and creatinine are 31/0.7. Phenytoin is 3.3, Dilantin. He is on valproic acid and carbamazepine. Cultures are pending. The patient was started on acyclovir for possible he rpes; however, I do not believe a spinal tap or lumbar puncture was done. PAST MEDICAL HISTORY: Operations as outlined. FAMILY HISTORY: Noncontributory. SOCIAL HISTORY: He does not smoke, drink or abuse drugs. ALLERGIES: NONE TO PENICILLIN, SULFA OR FOODS. MEDICATIONS: Per chart. REVIEW OF SYSTEMS: As per HPI. PHYSICAL EXAMINATION: GENERAL: The patient is an elderly appearing male who is nonverbal, in no acute distress. VITAL SIGNS: Stable. He is afebrile. SKIN: Without generalized rash. HEENT: Within normal limits. NECK: Supple. LYMPH NODES: None palpable. CHEST: Decreased breath sounds at the bases. HEART: Without murmur or gallop. ABDOMEN: Soft, nontender, without organosplenomegaly or masses. EXTREMITIES: Without cyanosis, clubbing, or edema. RECTAL AND GENITAL: Exams deferred. NEUROLOGICAL EVALUATION: No Kernig or Brudzinski signs. IMPRESSION AND PLAN: The patient was seen by Dr. Kilgore for an EKG with EEG which showed generalize d bihemispheric background slowing with intermittent epileptiform discharge in the left frontal diane on which . There are plans to rule out herpes simplex virus encephalitis. White count today is 12.1. We will await the results of these tests. He is on Keppra. He is on fosphenytoin, a juna ivative of Dilantin. We will continue the acyclovir for the time being until we get the lumbar punc ture. I will dictate my findings to the hospitalist and to Dr. Kilgore and . Dictated By: FABY CHOUDHURY MD, JD/MIKE Conf#: [id number] DID#: [id number]
[2016-07-31] MEDS: ACYCLOVIR IVPB SCH ×2 (13:45→18:45)
[2016-07-31] MEDS: SOD CHLORIDE 0.9% IVPB SCH ×2 (13:45→18:45)
[2016-07-31 18:14] LABS: CSF COLOR COLORLESS
[2016-07-31 18:15] LABS: %CREANATED RBC CSF 0 %; CSF VOLUME 4.5 ml; CSF#TUBE COUNT TUBE#4; CSF#TUBES REC'D 4
[2016-07-31 18:34] LABS: GLUCOSE,CSF 79 mg/dl (50-80)
[2016-07-31 18:35] LABS: FLUID LD 278 U/L; FLUID TYPE CSF
[2016-07-31] MEDS: PHENYTOIN 100 MG CAP PO SCH (20:40)
[2016-07-31] MEDS: INSULIN GLARGINE [LANtus] 3 ML PEN SC SCH (20:42)
[2016-07-31 20:43] VITALS: BP 156/94; RESP 19
[2016-08-01] MEDS: SOD CHLORIDE 0.9% IVPB SCH ×4 (00:14→22:29)
[2016-08-01] MEDS: ACYCLOVIR IVPB SCH ×4 (00:14→22:29)
[2016-08-01] MEDS: Insulin NOVOLOG SS MODERATE Algorithm(NPO/TPN/ENTERAL FEEDS) SC SCH (00:16)
[2016-08-01] MEDS: SOD CHLORIDE 0.45% 1,000 ML IV SCH ×2 (03:58→22:29)
[2016-08-01 07:37] VITALS: BP 153/88; RESP 20
--- NOTE | 2016-08-01 07:43 | RADRPT ---
PROCEDURE: Fluoroscopic guided lumbar puncture. CLINICAL INDICATION: Encephalitis. TECHNIQUE: Prior to the procedure, informed consent was obtained. Risks including bleeding and in fection were explained to the patient. The patient understood and was willing to proceed. A proced ural pause was performed. The patient's name, date of , and procedure to be performed were maribel ified. Using local anesthetic, sterile technique, and fluoroscopic guidance, a 22-gauge spinal needle was a dvanced into the thecal sac at the L4-5 level. Opening pressure was 11 cm of water. 5 mL of clear cerebrospinal fluid was aspirated and sent for laboratory analysis. The needle was removed. A dres sing was applied. The patient tolerated the procedure well. A total of 0.1 minutes of fluoroscopy time was used. COMPARISON: None. FINDINGS: Images demonstrate the needle at the L4-5 level in the thecal sac. IMPRESSION: 1. Satisfactory fluoroscopic guided lumbar puncture. 2. The opening pressure was 11 cm of water. RPTAT: QQ .Arturo Craven MD, MD Date Time Electronically viewed and signed by .Arturo Craven MD, on 07/31/2016 16:37 .R/
[2016-08-01] MEDS: INSULIN ASPART [NOVOLOG] 3 ML PEN SC SCH ×4 (08:00→21:00)
[2016-08-01 08:21] LABS: BASOPHILS % 0.4 % (0.0-2.0); EOSINOPHILS # 0.1 10^3/ul (0.0-0.5); EOSINOPHILS % 0.9 % (0.0-7.0); HEMOGLOBIN 14.8 g/dl (14.0-18.0); LYMPHOCYTES # 1.6 10^3/ul (0.8-2.9); LYMPHOCYTES % 18.1 % (15.0-51.0); MEAN CORPUSCULAR HEMOGLOBIN 32.7 pg (29.0-33.0); MEAN CORPUSCULAR HGB CONC 34.3 g/dl (32.0-37.0); MEAN CORPUSCULAR VOLUME 95.3 fl (82.0-101.0); MEAN PLATELET VOLUME 7.6 fl (7.4-10.4); MONOCYTE # 0.7 10^3/ul (0.3-0.9); MONOCYTES % 8.3 % (0.0-11.0); NEUTROPHIL # 6.4 10^3/ul (1.6-7.5); NEUTROPHILS % 72.3 % (39.0-77.0); PLATELET COUNT 252 10^3/UL (140-440); RED BLOOD COUNT 4.52 10^6/ul (4.70-6.10); RED CELL DISTRIBUTION WIDTH 12.8 % (11.5-14.5); UNCORRECTED WBC 8.8 10^3/ul (4.8-10.8); WHITE BLOOD COUNT 8.8 10^3/ul (4.8-10.8)
[2016-08-01 08:25] LABS: CONDITION 1
[2016-08-01 08:34] LABS: POTASSIUM 3.7 mmol/L (3.5-5.1)
[2016-08-01 08:37] LABS: CREATININE 0.67 mg/dl (0.61-1.24)
[2016-08-01 08:38] LABS: CALCIUM 9.3 mg/dl (8.4-10.2)
[2016-08-01 08:39] LABS: MAGNESIUM 1.9 mg/dl (1.7-2.5); PHOSPHORUS 4.1 mg/dl (2.5-4.9)
[2016-08-01] MEDS: LEVETIRACETAM 500 MG TAB PO SCH ×2 (09:34→22:30)
[2016-08-01] MEDS: ASPIRIN 81 MG TAB PO SCH (09:34)
[2016-08-01] MEDS: FAMOTIDINE 20 MG INJ IV SCH ×2 (09:34→22:30)
[2016-08-01] MEDS: ATENOLOL 25 MG TAB PO SCH ×2 (09:35→22:30)
--- NOTE | 2016-08-01 09:59 | PN ---
Date/Time of Note Date/Time of Note DATE: 08/01/16 TIME: 09:55 Assessment/Plan VTE Prophylaxis VTE Prophylaxis Intervention: SCD's Lines/Catheters [facility] (from [facility]): Peripheral IV Urinary Cath still in place: No Assessment/Plan Chief Complaint/Hosp Course 1. Seizure disorder. Continue anticonvulsants. Continue seizure precautions. 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 Lumbar puncture ordered. The patient was started on empiric acyclovir. Continue Ativan p.r.n. for breakthrough seizures. Neurology and infectious diseases following. 2. Acute encephalopathy, most probably secondary to postictal state (toxic metabolic encephalopathy). Reviewed brain MRI findings. 3. Dysphagia, most probably secondary to underlying encephalopathy. Was seen and evaluated by Speech Therapy. Continue to monitor the patient for aspiration. 4. Essential hypertension. Continue antihypertensives including p.r.n. antihypertensives. 5. Systemic inflammatory response syndrome with leukocytosis and tachycardia. Etiology unclear. The patient remains afebrile. Continue to monitor. 6. Hyperglycemia. Hemoglobin A1c 5.7. Continue sliding scale insulin. 7. Hypernatremia, most probably secondary to dehydration. Will continue the patient on IV fluids. 8. Fluid, electrolytes and nutrition. Pureed diet. Aspiration precautions. 9. Deep venous thrombosis prophylaxis with bilateral sequential compression devices. 10. Gastrointestinal prophylaxis. Histamine 2 receptor blockers. 11. Continue seizure prophylaxis. Continue anti-seizure medications. Continue empiric acyclovir. Adjust antihypertensives to obtain optimal blood pressure control. Await further recommendations from consultants. Case discussed with Dr. Mayer. Problems: Subjective 24 Hr Interval Summary Free Text/Dictation The patient remains afebrile. Exam/Review of Systems Vital Signs Vitals Vital Signs Date Time Temp Pulse Resp B/P Pulse Ox O2 Delivery O2 Flow Rate FiO2 08/01/16 07:37 97.8 77 20 153/88 98 07/31/16 09:51 Room Air 07/28/16 12:30 2.0 Intake and Output 07/31/16 07/31/16 08/01/16 15:00 23:00 07:00 Intake Total 400 ml 700 ml 1180 ml Output Total 800 ml Balance 400 ml 700 ml 380 ml Exam GENERAL: This is a 51-year-old male patient lying in bed in no apparent distress. HEENT: Head normocephalic and atraumatic. Anicteric sclerae. Conjunctivae clear. ENT: Nasal septum is midline. Oral mucosa is dry. NECK: Supple. No JVD noticed. RESPIRATORY: Bilaterally diminished breath sounds. No adventitious breath sounds. No use of accessory muscles of respiration. CARDIAC: Regular rate and rhythm. No murmurs heard. ABDOMEN: Soft, nontender and nondistended. Bowel sounds positive in all 4 quadrants. GENITOURINARY: Deferred. EXTREMITIES: No cyanosis, no clubbing, no edema. Peripheral pulses palpable. NEUROLOGIC: The patient is awake and alert. Follows commands. Moves all four extremities. PSYCHIATRIC: Withdrawn. Results Result Diagram: 08/01/16 0700 08/01/16 0700 Results 24 hrs Laboratory Tests Test 07/31/16 10:33 07/31/16 15:16 07/31/16 15:17 07/31/16 18:35 Activated Partial Thromboplast Time 24.8 L INR International Normalized Ratio 1.13 Prothrombin Time 14.5 H Prothrombin Time Ratio 1.1 CSF Appearance CLEAR CSF Cell Count Tube # TUBE#4 CSF Color COLORLESS CSF Comment CSF Crenated Cells 0 CSF Glucose 79 CSF Lymphocytes % CSF Monocytes % CSF Neutrophils % CSF RBC 7 H CSF Total Cells Counted CSF Total Protein 93 H CSF Tubes Submitted 4 CSF Volume 4.5 CSF WBC 6 Body Fluid Lactate Dehydrogenase 278 Body Fluid Type CSF Bedside Glucose 153 Test 08/01/16 00:11 08/01/16 07:00 08/01/16 07:45 Bedside Glucose 184 119 Anion Gap 16 Basophils # 0.0 Basophils % 0.4 Blood Urea Nitrogen 22 H Calcium Level 9.3 Carbon Dioxide Level 30 Chloride Level 105 Creatinine 0.67 Eosinophils # 0.1 Eosinophils % 0.9 Glucose Level 118 Hematocrit 43.0 Hemoglobin 14.8 Lymphocytes # 1.6 Lymphocytes % 18.1 Magnesium Level 1.9 Mean Corpuscular Hemoglobin 32.7 Mean Corpuscular Hemoglobin Concent 34.3 Mean Corpuscular Volume 95.3 Mean Platelet Volume 7.6 Monocytes # 0.7 Monocytes % 8.3 Neutrophils # 6.4 Neutrophils % 72.3 Nucleated Red Blood Cells # 0.0 Nucleated Red Blood Cells % 0.0 Phenytoin (Dilantin) Level 27.6 *H Phosphorus Level 4.1 Platelet Count 252 Potassium Level 3.7 Red Blood Count 4.52 L Red Cell Distribution Width 12.8 Sodium Level 147 H White Blood Count 8.8 # Medications Medications Current Medications Lorazepam (Ativan) 0.5 mg Q6H PRN IV ANXIETY Last administered on 07/30/16 14: 49; Admin Dose 0.5 MG; Start 07/28/16 at 14:30 Ondansetron HCl (Zofran Inj) 4 mg Q6H PRN IV NAUSEA AND/OR VOMITING Last administered on 07/28/16 17:40; Admin Dose 4 MG; Start 07/28/16 at 14:30 Aspirin (Aspirin) 81 mg DAILY PO Last administered on 08/01/16 09:34; Admin Dose 81 MG; Start 07/29/16 at 09:00 Acetaminophen (Tylenol Supp) 650 mg Q6H PRN [place] PAIN LEVEL 1-3 OR FEVER; Start 07/28/16 at 14:30 Morphine Sulfate (morphine) 2 mg Q4H PRN IV PAIN LEVEL 7-10; Start 07/28/16 at 14:30 Insulin Glargine (Lantus) 10 unit HS SC Last administered on 07/31/16 20:42; Admin Dose 10 UNIT; Start 07/28/16 at 21:00 Atenolol (Tenormin) 25 mg DAILY PO Last administered on 08/01/16 09:35; Admin Dose 25 MG; Start 07/28/16 at 14:30 Lorazepam (Ativan) 2 mg Q1H PRN IV SEIZURE Last administered on 07/31/16 13:45 ; Admin Dose 2 MG; Start 07/28/16 at 14:30 Miscellaneous Information 1 ea NOTE XX ; Start 07/28/16 at 15:00 Glucose (Glutose) 15 gm Q15M PRN PO DECREASED GLUCOSE; Start 07/28/16 at 15:00 Glucose (Glutose) 22.5 gm Q15M PRN PO DECREASED GLUCOSE; Start 07/28/16 at 15:00 Dextrose (D50w Syringe) 25 ml Q15M PRN IV DECREASED GLUCOSE; Start 07/28/16 at 15:00 Dextrose (D50w Syringe) 50 ml Q15M PRN IV DECREASED GLUCOSE; Start 07/28/16 at 15:00 Glucagon (Glucagen) 1 mg Q15M PRN IM DECREASED GLUCOSE; Start 07/28/16 at 15:00 Glucose (Glutose) 15 gm Q15M PRN BUCCAL DECREASED GLUCOSE; Start 07/28/16 at 15: 00 Haloperidol (Haldol) 4 mg Q4 PRN IM AGITATION Last administered on 07/30/16 02: 32; Admin Dose 4 MG; Start 07/29/16 at 02:30 Diphenhydramine HCl (Benadryl) 50 mg Q6H PRN IV agitation; Start 07/29/16 at 13: 00 Phenytoin (Dilantin) 300 mg HS PO Last administered on 07/31/16 20:40; Admin Dose 300 MG; Start 07/30/16 at 21:00 Hydralazine HCl (Apresoline) 10 mg Q6H PRN IV SBP>160; Start 07/30/16 at 16:30 Famotidine 20 mg 20 mg BID IV Last administered on 08/01/16 09:34; Admin Dose 20 MG; Start 07/30/16 at 18:00 Sodium Chloride 1,000 ml @ 75 mls/hr [id number] IV Last administered on 03:58; Admin Dose 75 MLS/HR; Start 07/30/16 at 16:30 Acyclovir/Sodium Chloride (Zovirax/NS) 100 ml @ 100 mls/hr Q8 IVPB Last administered on 08/01/16 05:24; Admin Dose 100 MLS/HR; Start 07/31/16 at 12:00 Levetiracetam (Keppra) 1,500 mg BID PO Last administered on 08/01/16 09:34; Admin Dose 1,500 MG; Start 07/31/16 at 21:00 Diagnostic Test (Pha) (Accucheck) If HS dose is administer... 02 XX ; Start 07/07 at 02:00 BLADE CHATTERJEE NP Aug 01, 2016 09:59
--- NOTE | 2016-08-01 12:29 | CONS ---
Date/Time of Note Date/Time of Note DATE: 08/01/16 TIME: 12:26 Consult Date/Type/Reason Admit Date/Time Jul 28, 2016 at 15:42 Initial Consult Date 07/30/16 Type of Consultation: neurology Reason for Consultation seizures Ordering Provider: HILARY HU MD Subjective no seizures overnight, patient was able to eat breakfast today with 1:1 aide more verbal today oriented to hospital and date Objective Vital Signs Date Time Temp Pulse Resp B/P Pulse Ox O2 Delivery O2 Flow Rate FiO2 08/01/16 07:37 97.8 77 20 153/88 98 07/31/16 09:51 Room Air 07/28/16 12:30 2.0 Intake and Output 07/31/16 07/31/16 08/01/16 15:00 23:00 07:00 Intake Total 400 ml 700 ml 1180 ml Output Total 800 ml Balance 400 ml 700 ml 380 ml General: asleep easily arousable awake and alert, oriented to self, date and reason for hospitalization no aphasia can name and repeat speech is more fluent CN: DUSTIN, VFF, EOMI no nystagmus, no facial asymmetry tongue midline Motor: lifts all extremities anti-gravity Sensory intact Results/Medications Result Diagram: 08/01/16 0700 08/01/16 0700 Results 24 hrs Laboratory Tests Test 07/31/16 15:16 07/31/16 15:17 07/31/16 18:35 08/01/16 00:11 CSF Appearance CLEAR CSF Cell Count Tube # TUBE#4 CSF Color COLORLESS CSF Comment CSF Crenated Cells 0 CSF Glucose 79 CSF Lymphocytes % CSF Monocytes % CSF Neutrophils % CSF RBC 7 H CSF Total Cells Counted CSF Total Protein 93 H CSF Tubes Submitted 4 CSF Volume 4.5 CSF WBC 6 Body Fluid Lactate Dehydrogenase 278 Body Fluid Type CSF Bedside Glucose 153 184 Test 08/01/16 07:00 08/01/16 07:45 08/01/16 12:07 Anion Gap 16 Basophils # 0.0 Basophils % 0.4 Blood Urea Nitrogen 22 H Calcium Level 9.3 Carbon Dioxide Level 30 Chloride Level 105 Creatinine 0.67 Eosinophils # 0.1 Eosinophils % 0.9 Glucose Level 118 Hematocrit 43.0 Hemoglobin 14.8 Lymphocytes # 1.6 Lymphocytes % 18.1 Magnesium Level 1.9 Mean Corpuscular Hemoglobin 32.7 Mean Corpuscular Hemoglobin Concent 34.3 Mean Corpuscular Volume 95.3 Mean Platelet Volume 7.6 Monocytes # 0.7 Monocytes % 8.3 Neutrophils # 6.4 Neutrophils % 72.3 Nucleated Red Blood Cells # 0.0 Nucleated Red Blood Cells % 0.0 Phenytoin (Dilantin) Level 27.6 *H Phosphorus Level 4.1 Platelet Count 252 Potassium Level 3.7 Red Blood Count 4.52 L Red Cell Distribution Width 12.8 Sodium Level 147 H White Blood Count 8.8 # Bedside Glucose 119 388 H Medications Current Medications Lorazepam (Ativan) 0.5 mg Q6H PRN IV ANXIETY Last administered on 07/30/16 14: 49; Admin Dose 0.5 MG; Start 07/28/16 at 14:30 Ondansetron HCl (Zofran Inj) 4 mg Q6H PRN IV NAUSEA AND/OR VOMITING Last administered on 07/28/16 17:40; Admin Dose 4 MG; Start 07/28/16 at 14:30 Aspirin (Aspirin) 81 mg DAILY PO Last administered on 08/01/16 09:34; Admin Dose 81 MG; Start 07/29/16 at 09:00 Acetaminophen (Tylenol Supp) 650 mg Q6H PRN [place] PAIN LEVEL 1-3 OR FEVER; Start 07/28/16 at 14:30 Morphine Sulfate (morphine) 2 mg Q4H PRN IV PAIN LEVEL 7-10; Start 07/28/16 at 14:30 Insulin Glargine (Lantus) 10 unit HS SC Last administered on 07/31/16 20:42; Admin Dose 10 UNIT; Start 07/28/16 at 21:00 Lorazepam (Ativan) 2 mg Q1H PRN IV SEIZURE Last administered on 07/31/16 13:45 ; Admin Dose 2 MG; Start 07/28/16 at 14:30 Miscellaneous Information 1 ea NOTE XX ; Start 07/28/16 at 15:00 Glucose (Glutose) 15 gm Q15M PRN PO DECREASED GLUCOSE; Start 07/28/16 at 15:00 Glucose (Glutose) 22.5 gm Q15M PRN PO DECREASED GLUCOSE; Start 07/28/16 at 15:00 Dextrose (D50w Syringe) 25 ml Q15M PRN IV DECREASED GLUCOSE; Start 07/28/16 at 15:00 Dextrose (D50w Syringe) 50 ml Q15M PRN IV DECREASED GLUCOSE; Start 07/28/16 at 15:00 Glucagon (Glucagen) 1 mg Q15M PRN IM DECREASED GLUCOSE; Start 07/28/16 at 15:00 Glucose (Glutose) 15 gm Q15M PRN BUCCAL DECREASED GLUCOSE; Start 07/28/16 at 15: 00 Haloperidol (Haldol) 4 mg Q4 PRN IM AGITATION Last administered on 07/30/16 02: 32; Admin Dose 4 MG; Start 07/29/16 at 02:30 Diphenhydramine HCl (Benadryl) 50 mg Q6H PRN IV agitation; Start 07/29/16 at 13: 00 Phenytoin (Dilantin) 300 mg HS PO Last administered on 07/31/16 20:40; Admin Dose 300 MG; Start 07/30/16 at 21:00; Status Future Hold Hydralazine HCl (Apresoline) 10 mg Q6H PRN IV SBP>160; Start 07/30/16 at 16:30 Famotidine 20 mg 20 mg BID IV Last administered on 08/01/16 09:34; Admin Dose 20 MG; Start 07/30/16 at 18:00 Sodium Chloride 1,000 ml @ 75 mls/hr [id number] IV Last administered on 03:58; Admin Dose 75 MLS/HR; Start 07/30/16 at 16:30 Acyclovir/Sodium Chloride (Zovirax/NS) 100 ml @ 100 mls/hr Q8 IVPB Last administered on 08/01/16 05:24; Admin Dose 100 MLS/HR; Start 07/31/16 at 12:00 Levetiracetam (Keppra) 1,500 mg BID PO Last administered on 08/01/16 09:34; Admin Dose 1,500 MG; Start 07/31/16 at 21:00 Diagnostic Test (Pha) (Accucheck) If HS dose is administer... 02 XX ; Start 07/07 at 02:00 Atenolol (Tenormin) 25 mg BID PO ; Start 08/01/16 at 21:00 Assessment/Plan Chief Complaint/Hosp Course 51 year old M hx of TBI, CVA right temporal lobe w encephalomalacia presents after generalized seizure with persistent encephalopathy now with improving mental status. Routine EEG: left frontal epileptiform discharges MRI Brain- T2 signal intensity mesial right temporal lobe extending in thalamus , parasagittal right frontal region, cingulate gyrus no hemorrhage right temporal encephalomalacia with gliosis, likely post-ictal phenomenon, HSV encephalitis undergoing work up LP done yesterday, please ensure HSV PCR sent in CSF, on empiric Acyclovir for treatment. Recommendations: -Dilantin level elevated today: 27.6 no clinical signs of toxicity, will hold the dose tonight and resume home dose likely tomorrow after rechecking level -Keppra continue on 1500 mg BID -follow up LP studies to r/o HSV, HSV PCR in CSF, appreciate ID involvement as well -seizure precautions, prn ativan low dose for further seizure Problems: ANETA GILLESPIE MD Aug 01, 2016 12:29
--- NOTE | 2016-08-01 16:50 | PN ---
DATE: 08/01/2016 SUBJECTIVE: Patient is alert, looks comfortable. Denies pain, discomfort. No fevers. Family at bedside. LABORATORY DATA: WBC today 8.8, no shift, no bands. BUN 22, creatinine 0.67. MICROBIOLOGY: CSF culture came back negative. ANTIMICROBIALS: The patient is on acyclovir IV. PHYSICAL EXAMINATION: GENERAL: Well-developed, middle-aged white man who is alert, in no distress. HEENT: Head atraumatic, normocephalic. Sclerae anicteric. Buccal mucosa pink. NECK: Supple, trachea midline. CHEST: Rise symmetrical. Breath sounds clear, diminished to bases. HEART: S1, S2. ABDOMEN: Soft. Bowel tones present. ASSESSMENT: 1. Resolving encephalopathy secondary to seizure episode. The patient had a lumbar puncture with cerebrospinal fluid cultures negative. 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 That is very unlikely based on the fact that his mental status is improving. 2. Hypertension. 3. Status post systemic inflammatory response syndrome with leukocytosis and tachycardia secondary to seizure episode. PLAN: The patient remains stable, overall improving. He is being seen by neurology. His CSF culture is negative. We are going to check patient's human immunodeficiency virus status. Doubt he has HSV encephalitis based on his mental status. Dictated By: SHREE HENDRIX [employer] Conf#: [id number] DID#: [id number] MTDD
[2016-08-01 19:10] LABS: HSV 1 IGG ANTIBODY <0.90; HSV 2 IGG ANTIBODY <0.90
[2016-08-01 19:24] VITALS: BP 133/87; RESP 20
[2016-08-01] MEDS: INSULIN GLARGINE [LANtus] 3 ML PEN SC SCH (22:31)
[2016-08-02] MEDS ORDERED: ACCUCHECK XX SCH (02:00)
[2016-08-02] MEDS: ACCUCHECK XX SCH (02:00)
[2016-08-02] MEDS: ACYCLOVIR IVPB SCH ×3 (05:50→22:11)
[2016-08-02] MEDS: SOD CHLORIDE 0.9% IVPB SCH ×3 (05:50→22:11)
[2016-08-02 06:00] LABS: BASOPHILS % 0.3 % (0.0-2.0); EOSINOPHILS # 0.3 10^3/ul (0.0-0.5); EOSINOPHILS % 2.7 % (0.0-7.0); HEMATOCRIT 42.2 % (42.0-52.0); HEMOGLOBIN 14.5 g/dl (14.0-18.0); LYMPHOCYTES % 18.3 % (15.0-51.0); MEAN CORPUSCULAR HEMOGLOBIN 32.5 pg (29.0-33.0); MEAN CORPUSCULAR HGB CONC 34.3 g/dl (32.0-37.0); MEAN CORPUSCULAR VOLUME 94.8 fl (82.0-101.0); MEAN PLATELET VOLUME 7.3 fl (7.4-10.4); MONOCYTE # 0.8 10^3/ul (0.3-0.9); MONOCYTES % 6.8 % (0.0-11.0); NEUTROPHILS % 71.9 % (39.0-77.0); PLATELET COUNT 261 10^3/UL (140-440); RED BLOOD COUNT 4.45 10^6/ul (4.70-6.10); RED CELL DISTRIBUTION WIDTH 12.8 % (11.5-14.5); UNCORRECTED WBC 11.2 10^3/ul (4.8-10.8); WHITE BLOOD COUNT 11.2 10^3/ul (4.8-10.8)
[2016-08-02 06:09] LABS: CONDITION 1
[2016-08-02 06:26] LABS: MAGNESIUM 1.5 mg/dl (1.7-2.5); PHOSPHORUS 3.7 mg/dl (2.5-4.9)
[2016-08-02 06:29] LABS: CREATININE 0.64 mg/dl (0.61-1.24)
[2016-08-02 06:30] LABS: CALCIUM 8.9 mg/dl (8.4-10.2); POTASSIUM 4.6 mmol/L (3.5-5.1)
[2016-08-02 07:30] VITALS: BP 142/89; RESP 18
[2016-08-02 08:11] VITALS: BP 142/89; PULSE 72; RESP 18
[2016-08-02] MEDS: ASPIRIN 81 MG TAB PO SCH (08:15)
[2016-08-02] MEDS: LEVETIRACETAM 500 MG TAB PO SCH ×2 (08:15→22:04)
[2016-08-02] MEDS: FAMOTIDINE 20 MG INJ IV SCH ×2 (08:16→22:05)
[2016-08-02] MEDS: ATENOLOL 25 MG TAB PO SCH ×2 (08:16→22:04)
[2016-08-02] MEDS: INSULIN ASPART [NOVOLOG] 3 ML PEN SC SCH ×4 (08:18→21:00)
--- NOTE | 2016-08-02 10:04 | PN ---
Date/Time of Note Date/Time of Note DATE: 08/02/16 TIME: 10:00 Assessment/Plan VTE Prophylaxis VTE Prophylaxis Intervention: SCD's Lines/Catheters IV C[facility]ter Type (from [facility]): Peripheral IV Urinary Cath still in place: No Assessment/Plan Chief Complaint/Hosp Course 1. Seizure disorder. Continue anticonvulsants. Continue seizure precautions. 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 S/P lumbar puncture. The patient was started on empiric acyclovir. HSV PCR pending. Continue Ativan p.r.n. for breakthrough seizures. Neurology and infectious diseases following. 2. Acute encephalopathy, most probably secondary to postictal state (toxic metabolic encephalopathy). Reviewed brain MRI findings. 3. Dysphagia, most probably secondary to underlying encephalopathy. Was seen and evaluated by Speech Therapy. Continue to monitor the patient for aspiration. 4. Essential hypertension. Continue antihypertensives including p.r.n. antihypertensives. 5. Systemic inflammatory response syndrome with leukocytosis and tachycardia. Etiology unclear. The patient remains afebrile. Continue to monitor. 6. Hyperglycemia. Hemoglobin A1c 5.7. Continue sliding scale insulin. 7. Hypernatremia, most probably secondary to dehydration. Resolved. 8. Fluid, electrolytes and nutrition. Pureed diet. Aspiration precautions. 9. Deep venous thrombosis prophylaxis with bilateral sequential compression devices. 10. Gastrointestinal prophylaxis. Histamine 2 receptor blockers. 11. Continue seizure prophylaxis. Continue anti-seizure medications. Continue empiric acyclovir. Replete magnesium. Await further recommendations from consultants. Case discussed with Dr. Myaer. Plan of care was explained to the patient's father who was at the bedside. Problems: Subjective 24 Hr Interval Summary Free Text/Dictation Patient remains afebrile. Exam/Review of Systems Vital Signs Vitals Vital Signs Date Time Temp Pulse Resp B/P Pulse Ox O2 Delivery O2 Flow Rate FiO2 08/02/16 08:11 98.7 72 18 142/89 96 Room Air Intake and Output 08/01/16 08/01/16 08/02/16 15:00 23:00 07:00 Intake Total 900 ml 1400 ml Output Total 1000 ml Balance 900 ml 400 ml Exam GENERAL: This is a 51-year-old male patient lying in bed in no apparent distress. HEENT: Head normocephalic and atraumatic. Anicteric sclerae. Conjunctivae clear. ENT: Nasal septum is midline. Oral mucosa is dry. NECK: Supple. No JVD noticed. RESPIRATORY: Bilaterally diminished breath sounds. No adventitious breath sounds. No use of accessory muscles of respiration. CARDIAC: Regular rate and rhythm. No murmurs heard. ABDOMEN: Soft, nontender and nondistended. Bowel sounds positive in all 4 quadrants. GENITOURINARY: Deferred. EXTREMITIES: No cyanosis, no clubbing, no edema. Peripheral pulses palpable. NEUROLOGIC: The patient is awake and alert. Forgetful. Follows commands. Moves all four extremities. PSYCHIATRIC: Normal mood and affect. Results Result Diagram: 08/02/16 0520 08/02/16 0520 Results 24 hrs Laboratory Tests Test 08/01/16 12:07 08/01/16 16:10 08/01/16 16:17 08/01/16 20:44 Bedside Glucose 388 H 92 126 HIV (1&2) Antibody NEGATIVE Test 08/02/16 05:20 08/02/16 08:13 Anion Gap 17 H Basophils # 0.0 Basophils % 0.3 Blood Morphology Comment Blood Urea Nitrogen 16 Calcium Level 8.9 Carbon Dioxide Level 29 Chloride Level 99 Creatinine 0.64 Eosinophils # 0.3 Eosinophils % 2.7 Glucose Level 129 Hematocrit 42.2 Hemoglobin 14.5 Lymphocytes # 2.0 Lymphocytes % 18.3 Magnesium Level 1.5 L Mean Corpuscular Hemoglobin 32.5 Mean Corpuscular Hemoglobin Concent 34.3 Mean Corpuscular Volume 94.8 Mean Platelet Volume 7.3 L Monocytes # 0.8 Monocytes % 6.8 Neutrophils # 8.0 H Neutrophils % 71.9 Nucleated Red Blood Cells # 0.0 Nucleated Red Blood Cells % 0.0 Phenytoin (Dilantin) Level 21.4 *H Phosphorus Level 3.7 Platelet Count 261 Potassium Level 4.6 Red Blood Count 4.45 L Red Cell Distribution Width 12.8 Sodium Level 140 White Blood Count 11.2 #H Bedside Glucose 142 Medications Medications Current Medications Lorazepam (Ativan) 0.5 mg Q6H PRN IV ANXIETY Last administered on 07/30/16t 14: 49; Admin Dose 0.5 MG; Start 07/28/16 at 14:30 Ondansetron HCl (Zofran Inj) 4 mg Q6H PRN IV NAUSEA AND/OR VOMITING Last administered on 07/28/16 17:40; Admin Dose 4 MG; Start 07/28/16 at 14:30 Aspirin (Aspirin) 81 mg DAILY PO Last administered on 08/02/16 08:15; Admin Dose 81 MG; Start 07/29/16 at 09:00 Acetaminophen (Tylenol Supp) 650 mg Q6H PRN [place] PAIN LEVEL 1-3 OR FEVER; Start 07/28/16 at 14:30 Morphine Sulfate (morphine) 2 mg Q4H PRN IV PAIN LEVEL 7-10; Start 07/28/16 at 14:30 Insulin Glargine (Lantus) 10 unit HS SC Last administered on 08/01/16 22:31; Admin Dose 10 UNIT; Start 07/28/16 at 21:00 Lorazepam (Ativan) 2 mg Q1H PRN IV SEIZURE Last administered on 07/31/16 13:45 ; Admin Dose 2 MG; Start 07/28/16 at 14:30 Miscellaneous Information 1 ea NOTE XX ; Start 07/28/16 at 15:00 Glucose (Glutose) 15 gm Q15M PRN PO DECREASED GLUCOSE; Start 07/28/16 at 15:00 Glucose (Glutose) 22.5 gm Q15M PRN PO DECREASED GLUCOSE; Start 07/28/16 at 15:00 Dextrose (D50w Syringe) 25 ml Q15M PRN IV DECREASED GLUCOSE; Start 07/28/16 at 15:00 Dextrose (D50w Syringe) 50 ml Q15M PRN IV DECREASED GLUCOSE; Start 07/28/16 at 15:00 Glucagon (Glucagen) 1 mg Q15M PRN IM DECREASED GLUCOSE; Start 07/28/16 at 15:00 Glucose (Glutose) 15 gm Q15M PRN BUCCAL DECREASED GLUCOSE; Start 07/28/16 at 15: 00 Haloperidol (Haldol) 4 mg Q4 PRN IM AGITATION Last administered on 07/30/16 02: 32; Admin Dose 4 MG; Start 07/29/16 at 02:30 Diphenhydramine HCl (Benadryl) 50 mg Q6H PRN IV agitation; Start 07/29/16 at 13: 00 Phenytoin (Dilantin) 300 mg HS PO Last administered on 1/10/17at 20:40; Admin Dose 300 MG; Start 07/30/16 at 21:00; Status Future Hold Hydralazine HCl (Apresoline) 10 mg Q6H PRN IV SBP>160; Start 07/30/16 at 16:30 Famotidine 20 mg 20 mg BID IV Last administered on 08/02/16 08:16; Admin Dose 20 MG; Start 07/30/16 at 18:00 Sodium Chloride 1,000 ml @ 75 mls/hr [id number] IV Last administered on 22:29; Admin Dose 75 MLS/HR; Start 07/30/16 at 16:30 Acyclovir/Sodium Chloride (Zovirax/NS) 100 ml @ 100 mls/hr Q8 IVPB Last administered on 08/02/16 05:50; Admin Dose 100 MLS/HR; Start 07/31/16 at 12:00 Levetiracetam (Keppra) 1,500 mg BID PO Last administered on 08/02/16 08:15; Admin Dose 1,500 MG; Start 07/31/16 at 21:00 Diagnostic Test (Pha) (Accucheck) If HS dose is administer... 02 XX ; Start 07/07 at 02:00 Atenolol (Tenormin) 25 mg BID PO Last administered on 08/02/16 08:16; Admin Dose 25 MG; Start 08/01/16 at 21:00 BLADE CHATTERJEE NP Aug 02, 2016 10:04
[2016-08-02] MEDS: SOD CHLORIDE 0.45% 1,000 ML IV SCH ×2 (11:10→16:42)
[2016-08-02] MEDS ORDERED: MAGNESIUM SULFATE 2 GM/50 ML 50 ML IVPB ONE (11:30)
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
[2016-08-02 13:04] LABS: VDRL, CSF NON-REACTIVE (NON-REACTIVE)
--- NOTE | 2016-08-02 15:50 | CONS ---
Date/Time of Note Date/Time of Note DATE: 08/02/16 TIME: 15:48 Consult Date/Type/Reason Admit Date/Time Jul 28, 2016 at 15:42 Initial Consult Date 07/30/16 Type of Consultation: id Ordering Provider: HILARY HU MD Subjective alert, feels good, no fevers, nad Objective Vital Signs Date Time Temp Pulse Resp B/P Pulse Ox O2 Delivery O2 Flow Rate FiO2 08/02/16 08:11 98.7 72 18 142/89 96 Room Air Intake and Output 08/01/16 08/01/16 08/02/16 15:00 23:00 07:00 Intake Total 900 ml 1400 ml Output Total 1000 ml Balance 900 ml 400 ml Results/Medications Result Diagram: 08/02/1651908/02/16 0520 Results 24 hrs Laboratory Tests Test 08/01/16 16:10 08/01/16 16:17 08/01/16 20:44 08/02/16 05:20 HIV (1&2) Antibody NEGATIVE Bedside Glucose 92 126 Anion Gap 17 H Basophils # 0.0 Basophils % 0.3 Blood Morphology Comment Blood Urea Nitrogen 16 Calcium Level 8.9 Carbon Dioxide Level 29 Chloride Level 99 Creatinine 0.64 Eosinophils # 0.3 Eosinophils % 2.7 Glucose Level 129 Hematocrit 42.2 Hemoglobin 14.5 Lymphocytes # 2.0 Lymphocytes % 18.3 Magnesium Level 1.5 L Mean Corpuscular Hemoglobin 32.5 Mean Corpuscular Hemoglobin Concent 34.3 Mean Corpuscular Volume 94.8 Mean Platelet Volume 7.3 L Monocytes # 0.8 Monocytes % 6.8 Neutrophils # 8.0 H Neutrophils % 71.9 Nucleated Red Blood Cells # 0.0 Nucleated Red Blood Cells % 0.0 Phenytoin (Dilantin) Level 21.4 *H Phosphorus Level 3.7 Platelet Count 261 Potassium Level 4.6 Red Blood Count 4.45 L Red Cell Distribution Width 12.8 Sodium Level 140 White Blood Count 11.2 #H Test 08/02/16 08:13 08/02/16 11:26 Bedside Glucose 142 122 Medications Current Medications Lorazepam (Ativan) 0.5 mg Q6H PRN IV ANXIETY Last administered on 07/30/16t 14: 49; Admin Dose 0.5 MG; Start 07/28/16 at 14:30 Ondansetron HCl (Zofran Inj) 4 mg Q6H PRN IV NAUSEA AND/OR VOMITING Last administered on 07/28/16 17:40; Admin Dose 4 MG; Start 07/28/16 at 14:30 Aspirin (Aspirin) 81 mg DAILY PO Last administered on 08/02/16 08:15; Admin Dose 81 MG; Start 07/29/16 at 09:00 Acetaminophen (Tylenol Supp) 650 mg Q6H PRN OR PAIN LEVEL 1-3 OR FEVER; Start 07/28/16 at 14:30 Morphine Sulfate (morphine) 2 mg Q4H PRN IV PAIN LEVEL 7-10 Last administered on 08/02/16 13:01; Admin Dose 2 MG; Start 07/28/16 at 14:30 Insulin Glargine (Lantus) 10 unit HS SC Last administered on 08/01/16 22:31; Admin Dose 10 UNIT; Start 07/28/16 at 21:00 Lorazepam (Ativan) 2 mg Q1H PRN IV SEIZURE Last administered on 07/31/16 13:45 ; Admin Dose 2 MG; Start 07/28/16 at 14:30 Miscellaneous Information 1 ea NOTE XX ; Start 07/28/16 at 15:00 Glucose (Glutose) 15 gm Q15M PRN PO DECREASED GLUCOSE; Start 07/28/16 at 15:00 Glucose (Glutose) 22.5 gm Q15M PRN PO DECREASED GLUCOSE; Start 07/28/16 at 15:00 Dextrose (D50w Syringe) 25 ml Q15M PRN IV DECREASED GLUCOSE; Start 07/28/16 at 15:00 Dextrose (D50w Syringe) 50 ml Q15M PRN IV DECREASED GLUCOSE; Start 07/28/16 at 15:00 Glucagon (Glucagen) 1 mg Q15M PRN IM DECREASED GLUCOSE; Start 07/28/16 at 15:00 Glucose (Glutose) 15 gm Q15M PRN BUCCAL DECREASED GLUCOSE; Start 07/28/16 at 15: 00 Haloperidol (Haldol) 4 mg Q4 PRN IM AGITATION Last administered on 07/30/16 02: 32; Admin Dose 4 MG; Start 07/29/16 at 02:30 Diphenhydramine HCl (Benadryl) 50 mg Q6H PRN IV agitation; Start 07/29/16 at 13: 00 Phenytoin (Dilantin) 300 mg HS PO Last administered on 07/31/16 20:40; Admin Dose 300 MG; Start 07/30/16 at 21:00; Status Future Hold Hydralazine HCl (Apresoline) 10 mg Q6H PRN IV SBP>160; Start 07/30/16 at 16:30 Famotidine 20 mg 20 mg BID IV Last administered on 08/02/16 08:16; Admin Dose 20 MG; Start 07/30/16 at 18:00 Sodium Chloride 1,000 ml @ 75 mls/hr [id number] IV Last administered on 22:29; Admin Dose 75 MLS/HR; Start 07/30/16 at 16:30 Acyclovir/Sodium Chloride (Zovirax/NS) 100 ml @ 100 mls/hr Q8 IVPB Last administered on 08/02/16 14:09; Admin Dose 100 MLS/HR; Start 07/31/16 at 12:00 Levetiracetam (Keppra) 1,500 mg BID PO Last administered on 08/02/16 08:15; Admin Dose 1,500 MG; Start 07/31/16 at 21:00 Diagnostic Test (Pha) (Accucheck) If HS dose is administer... 02 XX ; Start 07/07 at 02:00 Atenolol (Tenormin) 25 mg BID PO Last administered on 08/02/16 08:16; Admin Dose 25 MG; Start 08/01/16 at 21:00 Assessment/Plan Chief Complaint/Hosp Course MICROBIOLOGY: CSF culture came back negative. ANTIMICROBIALS: The patient is on acyclovir IV. PHYSICAL EXAMINATION: GENERAL: Well-developed, middle-aged white man who is alert, in no distress. HEENT: Head atraumatic, normocephalic. Sclerae anicteric. Buccal mucosa pink. NECK: Supple, trachea midline. CHEST: Rise symmetrical. Breath sounds clear, diminished to bases. HEART: S1, S2. ABDOMEN: Soft. Bowel tones present. ASSESSMENT: 1. Resolving encephalopathy secondary to seizure episode. The patient had a lumbar puncture with cerebrospinal fluid cultures negative. 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 . 2. Hypertension. 3. Status post systemic inflammatory response syndrome with leukocytosis and tachycardia secondary to seizure episode. PLAN: Continues to improve, HIV negative, will dc Acyclovir, f/u neuro rec-s. [facility] staff Problems: SHREE HENDRIX NP Aug 02, 2016 15:50
[2016-08-02 19:44] VITALS: BP 146/90; RESP 18
[2016-08-02] MEDS: INSULIN GLARGINE [LANtus] 3 ML PEN SC SCH (22:08)
[2016-08-03] MEDS: ACCUCHECK XX SCH (02:00)
[2016-08-03] MEDS: ACYCLOVIR IVPB SCH (05:18)
[2016-08-03] MEDS: SOD CHLORIDE 0.9% IVPB SCH (05:18)
[2016-08-03 06:53] LABS: BASOPHILS % 0.4 % (0.0-2.0); EOSINOPHILS # 0.3 10^3/ul (0.0-0.5); EOSINOPHILS % 3.6 % (0.0-7.0); HEMATOCRIT 44.6 % (42.0-52.0); HEMOGLOBIN 15.2 g/dl (14.0-18.0); LYMPHOCYTES # 1.9 10^3/ul (0.8-2.9); LYMPHOCYTES % 20.3 % (15.0-51.0); MEAN CORPUSCULAR HEMOGLOBIN 32.5 pg (29.0-33.0); MEAN CORPUSCULAR HGB CONC 34.1 g/dl (32.0-37.0); MEAN CORPUSCULAR VOLUME 95.4 fl (82.0-101.0); MEAN PLATELET VOLUME 7.4 fl (7.4-10.4); MONOCYTE # 0.7 10^3/ul (0.3-0.9); MONOCYTES % 7.2 % (0.0-11.0); NEUTROPHIL # 6.4 10^3/ul (1.6-7.5); NEUTROPHILS % 68.5 % (39.0-77.0); PLATELET COUNT 262 10^3/UL (140-440); RED BLOOD COUNT 4.68 10^6/ul (4.70-6.10); RED CELL DISTRIBUTION WIDTH 12.6 % (11.5-14.5); UNCORRECTED WBC 9.3 10^3/ul (4.8-10.8); WHITE BLOOD COUNT 9.3 10^3/ul (4.8-10.8)
[2016-08-03 07:06] LABS: PHOSPHORUS 3.5 mg/dl (2.5-4.9)
[2016-08-03 07:06] LABS: POTASSIUM 4.4 mmol/L (3.5-5.1)
[2016-08-03 07:09] LABS: CREATININE 0.65 mg/dl (0.61-1.24)
[2016-08-03 07:10] LABS: CALCIUM 9.3 mg/dl (8.4-10.2)
[2016-08-03 07:21] LABS: MAGNESIUM 2.2 mg/dl (1.7-2.5)
[2016-08-03 07:23] LABS: CONDITION 1
[2016-08-03] MEDS: INSULIN ASPART [NOVOLOG] 3 ML PEN SC SCH ×4 (08:00→21:00)
[2016-08-03] MEDS: FAMOTIDINE 20 MG INJ IV SCH ×2 (08:50→21:03)
[2016-08-03] MEDS: ATENOLOL 25 MG TAB PO SCH ×2 (08:51→21:04)
[2016-08-03] MEDS: LEVETIRACETAM 500 MG TAB PO SCH ×2 (08:51→21:04)
[2016-08-03] MEDS: ACETAMINOPHEN 325 MG TAB PO PRN (08:51)
[2016-08-03] MEDS: ASPIRIN 81 MG TAB PO SCH (08:51)
[2016-08-03 09:00] VITALS: BP 138/82; PULSE 65; RESP 18
[2016-08-03] MEDS: SOD CHLORIDE 0.45% 1,000 ML IV SCH (11:47)
--- NOTE | 2016-08-03 12:55 | CONS ---
Date/Time of Note Date/Time of Note DATE: 08/03/16 TIME: 12:54 Consult Date/Type/Reason Admit Date/Time Jul 28, 2016 at 15:42 Initial Consult Date 07/30/16 Type of Consultation: id Ordering Provider: HILARY HU MD Subjective alert, looks comfortable, no fevers Objective Vital Signs Date Time Temp Pulse Resp B/P Pulse Ox O2 Delivery O2 Flow Rate FiO2 08/03/16 09:00 98.0 65 18 138/82 95 Room Air Intake and Output 08/02/16 08/02/16 08/03/16 15:00 23:00 07:00 Intake Total 150 ml 2152 ml 990 ml Output Total 2440 ml 1300 ml Balance 150 ml -288 ml -310 ml Results/Medications Result Diagram: 08/03/16 0450 08/03/16 0540 Results 24 hrs Laboratory Tests Test 08/02/16 17:33 08/02/16 19:51 08/03/16 04:50 08/03/16 05:40 Bedside Glucose 202 112 Basophils # 0.0 Basophils % 0.4 Eosinophils # 0.3 Eosinophils % 3.6 Hematocrit 44.6 Hemoglobin 15.2 Lymphocytes # 1.9 Lymphocytes % 20.3 Magnesium Level 2.2 Mean Corpuscular Hemoglobin 32.5 Mean Corpuscular Hemoglobin Concent 34.1 Mean Corpuscular Volume 95.4 Mean Platelet Volume 7.4 Monocytes # 0.7 Monocytes % 7.2 Neutrophils # 6.4 Neutrophils % 68.5 Nucleated Red Blood Cells # 0.0 Nucleated Red Blood Cells % 0.0 Phenytoin (Dilantin) Level 12.6 Phosphorus Level 3.5 Platelet Count 262 Red Blood Count 4.68 L Red Cell Distribution Width 12.6 White Blood Count 9.3 Anion Gap 14 Blood Urea Nitrogen 15 Calcium Level 9.3 Carbon Dioxide Level 30 Chloride Level 101 Creatinine 0.65 Glucose Level 123 Potassium Level 4.4 Sodium Level 141 Test 08/03/16 07:53 08/03/16 11:30 Bedside Glucose 120 181 Medications Current Medications Lorazepam (Ativan) 0.5 mg Q6H PRN IV ANXIETY Last administered on 07/30/16t 14: 49; Admin Dose 0.5 MG; Start 07/28/16 at 14:30 Ondansetron HCl (Zofran Inj) 4 mg Q6H PRN IV NAUSEA AND/OR VOMITING Last administered on 07/28/16 17:40; Admin Dose 4 MG; Start 07/28/16 at 14:30 Aspirin (Aspirin) 81 mg DAILY PO Last administered on 08/03/16 08:51; Admin Dose 81 MG; Start 07/29/16 at 09:00 Morphine Sulfate (morphine) 2 mg Q4H PRN IV PAIN LEVEL 7-10 Last administered on 08/02/16 13:01; Admin Dose 2 MG; Start 07/28/16 at 14:30 Insulin Glargine (Lantus) 10 unit HS SC Last administered on 08/02/16 22:08; Admin Dose 10 UNIT; Start 07/28/16 at 21:00 Lorazepam (Ativan) 2 mg Q1H PRN IV SEIZURE Last administered on 07/31/16 13:45 ; Admin Dose 2 MG; Start 07/28/16 at 14:30 Miscellaneous Information 1 ea NOTE XX ; Start 07/28/16 at 15:00 Glucose (Glutose) 15 gm Q15M PRN PO DECREASED GLUCOSE; Start 07/28/16 at 15:00 Glucose (Glutose) 22.5 gm Q15M PRN PO DECREASED GLUCOSE; Start 07/28/16 at 15:00 Dextrose (D50w Syringe) 25 ml Q15M PRN IV DECREASED GLUCOSE; Start 07/28/16 at 15:00 Dextrose (D50w Syringe) 50 ml Q15M PRN IV DECREASED GLUCOSE; Start 07/28/16 at 15:00 Glucagon (Glucagen) 1 mg Q15M PRN IM DECREASED GLUCOSE; Start 07/28/16 at 15:00 Glucose (Glutose) 15 gm Q15M PRN BUCCAL DECREASED GLUCOSE; Start 07/28/16 at 15: 00 Haloperidol (Haldol) 4 mg Q4 PRN IM AGITATION Last administered on 07/30/16 02: 32; Admin Dose 4 MG; Start 07/29/16 at 02:30 Diphenhydramine HCl (Benadryl) 50 mg Q6H PRN IV agitation; Start 07/29/16 at 13: 00 Phenytoin (Dilantin) 300 mg HS PO Last administered on 07/31/16 20:40; Admin Dose 300 MG; Start 07/30/16 at 21:00; Status Future Hold Hydralazine HCl (Apresoline) 10 mg Q6H PRN IV SBP>160; Start 07/30/16 at 16:30 Famotidine 20 mg 20 mg BID IV Last administered on 08/03/16 08:50; Admin Dose 20 MG; Start 07/30/16 at 18:00 Sodium Chloride (1/2 NS) 1,000 ml @ 75 mls/hr [id number] IV Last administered on 08/03/16 11:47; Admin Dose 75 MLS/HR; Start 07/30/16 at 16:30 Levetiracetam (Keppra) 1,500 mg BID PO Last administered on 08/03/16 08:51; Admin Dose 1,500 MG; Start 07/31/16 at 21:00 Diagnostic Test (Pha) (Accucheck) If HS dose is administer... 02 XX ; Start 07/07 at 02:00 Atenolol (Tenormin) 25 mg BID PO Last administered on 08/03/16 08:51; Admin Dose 25 MG; Start 08/01/16 at 21:00 Acetaminophen (Tylenol Tab) 650 mg Q6H PRN PO PAIN AND OR ELEVATED TEMP Last administered on 08/03/16 08:51; Admin Dose 650 MG; Start 08/02/16 at 16:00 Assessment/Plan Chief Complaint/Hosp Course MICROBIOLOGY: CSF culture came back negative. ANTIMICROBIALS: s/p acyclovir IV. PHYSICAL EXAMINATION: GENERAL: Well-developed, middle-aged white man who is alert, in no distress. HEENT: Head atraumatic, normocephalic. Sclerae anicteric. Buccal mucosa pink. NECK: Supple, trachea midline. CHEST: Rise symmetrical. Breath sounds clear, diminished to bases. HEART: S1, S2. ABDOMEN: Soft. Bowel tones present. ASSESSMENT: 1. Resolving encephalopathy secondary to seizure episode. The patient had a lumbar puncture with cerebrospinal fluid cultures negative. 2. Hypertension. 3. Status post systemic inflammatory response syndrome with leukocytosis and tachycardia secondary to seizure episode. PLAN: Continues to improve, f/u neuro rec-s. [facility] staff Problems: SHREE HENDRIX NP Aug 03, 2016 12:55
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
--- NOTE | 2016-08-03 15:25 | PN ---
Date/Time of Note Date/Time of Note DATE: 08/03/16 TIME: 15:23 Assessment/Plan VTE Prophylaxis VTE Prophylaxis Intervention: SCD's Lines/Catheters IV [facility] (from [facility]): Peripheral IV Urinary Cath still in place: No Assessment/Plan Chief Complaint/Hosp Course 1. Seizure disorder. Continue anticonvulsants. Continue seizure precautions. 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 S/P lumbar puncture. The patient was started on empiric acyclovir. HSV PCR pending. Continue Ativan p.r.n. for breakthrough seizures. Neurology and infectious diseases following. 2. Acute encephalopathy, most probably secondary to postictal state (toxic metabolic encephalopathy). Reviewed brain MRI findings. 3. Dysphagia, most probably secondary to underlying encephalopathy. Was seen and evaluated by Speech Therapy. Continue to monitor the patient for aspiration. 4. Essential hypertension. Continue antihypertensives including p.r.n. antihypertensives. 5. Systemic inflammatory response syndrome with leukocytosis and tachycardia. Etiology unclear. The patient remains afebrile. Continue to monitor. 6. Hyperglycemia. Hemoglobin A1c 5.7. Continue sliding scale insulin. 7. Hypernatremia, most probably secondary to dehydration. Resolved. 8. Fluid, electrolytes and nutrition. Soft diet. Aspiration precautions. 9. Deep venous thrombosis prophylaxis with bilateral sequential compression devices. 10. Gastrointestinal prophylaxis. Histamine 2 receptor blockers. 11. Continue seizure prophylaxis. Continue anti-seizure medications. Continue empiric acyclovir. Await further recommendations from consultants. The patient is medically stable to be transferred to the [facility] for further management. Case discussed with Dr. Mayer. Plan of care was explained to the patient's mother who was at the bedside. Problems: Subjective 24 Hr Interval Summary Free Text/Dictation No seizure activity reported. Exam/Review of Systems Vital Signs Vitals Vital Signs Date Time Temp Pulse Resp B/P Pulse Ox O2 Delivery O2 Flow Rate FiO2 08/03/16 09:00 98.0 65 18 138/82 95 Room Air Intake and Output 08/02/16 08/02/16 08/03/16 15:00 23:00 07:00 Intake Total 150 ml 2152 ml 990 ml Output Total 2440 ml 1300 ml Balance 150 ml -288 ml -310 ml Exam GENERAL: This is a 51-year-old male patient lying in bed in no apparent distress. HEENT: Head normocephalic and atraumatic. Anicteric sclerae. Conjunctivae clear. ENT: Nasal septum is midline. Oral mucosa is dry. NECK: Supple. No JVD noticed. RESPIRATORY: Bilaterally diminished breath sounds. No adventitious breath sounds. No use of accessory muscles of respiration. CARDIAC: Regular rate and rhythm. No murmurs heard. ABDOMEN: Soft, nontender and nondistended. Bowel sounds positive in all 4 quadrants. GENITOURINARY: Deferred. EXTREMITIES: No cyanosis, no clubbing, no edema. Peripheral pulses palpable. NEUROLOGIC: The patient is awake and alert. Forgetful. Follows commands. Moves all four extremities. PSYCHIATRIC: Normal mood and affect. Results Result Diagram: 08/03/16 0450 08/03/16 0540 Results 24 hrs Laboratory Tests Test 08/02/16 17:33 08/02/16 19:51 08/03/16 04:50 08/03/16 05:40 Bedside Glucose 202 112 Basophils # 0.0 Basophils % 0.4 Eosinophils # 0.3 Eosinophils % 3.6 Hematocrit 44.6 Hemoglobin 15.2 Lymphocytes # 1.9 Lymphocytes % 20.3 Magnesium Level 2.2 Mean Corpuscular Hemoglobin 32.5 Mean Corpuscular Hemoglobin Concent 34.1 Mean Corpuscular Volume 95.4 Mean Platelet Volume 7.4 Monocytes # 0.7 Monocytes % 7.2 Neutrophils # 6.4 Neutrophils % 68.5 Nucleated Red Blood Cells # 0.0 Nucleated Red Blood Cells % 0.0 Phenytoin (Dilantin) Level 12.6 Phosphorus Level 3.5 Platelet Count 262 Red Blood Count 4.68 L Red Cell Distribution Width 12.6 White Blood Count 9.3 Anion Gap 14 Blood Urea Nitrogen 15 Calcium Level 9.3 Carbon Dioxide Level 30 Chloride Level 101 Creatinine 0.65 Glucose Level 123 Potassium Level 4.4 Sodium Level 141 Test 08/03/16 07:53 08/03/16 11:30 Bedside Glucose 120 181 Medications Medications Current Medications Lorazepam (Ativan) 0.5 mg Q6H PRN IV ANXIETY Last administered on 07/30/16t 14: 49; Admin Dose 0.5 MG; Start 07/28/16 at 14:30 Ondansetron HCl (Zofran Inj) 4 mg Q6H PRN IV NAUSEA AND/OR VOMITING Last administered on 07/28/16 17:40; Admin Dose 4 MG; Start 07/28/16 at 14:30 Aspirin (Aspirin) 81 mg DAILY PO Last administered on 08/03/16 08:51; Admin Dose 81 MG; Start 07/29/16 at 09:00 Morphine Sulfate (morphine) 2 mg Q4H PRN IV PAIN LEVEL 7-10 Last administered on 08/02/16 13:01; Admin Dose 2 MG; Start 07/28/16 at 14:30 Insulin Glargine (Lantus) 10 unit HS SC Last administered on 08/02/16 22:08; Admin Dose 10 UNIT; Start 07/28/16 at 21:00 Lorazepam (Ativan) 2 mg Q1H PRN IV SEIZURE Last administered on 07/31/16 13:45 ; Admin Dose 2 MG; Start 07/28/16 at 14:30 Miscellaneous Information 1 ea NOTE XX ; Start 07/28/16 at 15:00 Glucose (Glutose) 15 gm Q15M PRN PO DECREASED GLUCOSE; Start 07/28/16 at 15:00 Glucose (Glutose) 22.5 gm Q15M PRN PO DECREASED GLUCOSE; Start 07/28/16 at 15:00 Dextrose (D50w Syringe) 25 ml Q15M PRN IV DECREASED GLUCOSE; Start 07/28/16 at 15:00 Dextrose (D50w Syringe) 50 ml Q15M PRN IV DECREASED GLUCOSE; Start 07/28/16 at 15:00 Glucagon (Glucagen) 1 mg Q15M PRN IM DECREASED GLUCOSE; Start 07/28/16 at 15:00 Glucose (Glutose) 15 gm Q15M PRN BUCCAL DECREASED GLUCOSE; Start 07/28/16 at 15: 00 Haloperidol (Haldol) 4 mg Q4 PRN IM AGITATION Last administered on 07/30/16 02: 32; Admin Dose 4 MG; Start 07/29/16 at 02:30 Diphenhydramine HCl (Benadryl) 50 mg Q6H PRN IV agitation; Start 07/29/16 at 13: 00 Phenytoin (Dilantin) 300 mg HS PO Last administered on 07/31/16 20:40; Admin Dose 300 MG; Start 07/30/16 at 21:00; Status Future Hold Hydralazine HCl (Apresoline) 10 mg Q6H PRN IV SBP>160; Start 07/30/16 at 16:30 Famotidine (Pepcid Iv) 20 mg BID IV Last administered on 08/03/16 08:50; Admin Dose 20 MG; Start 07/30/16 at 18:00 Levetiracetam (Keppra) 1,500 mg BID PO Last administered on 08/03/16 08:51; Admin Dose 1,500 MG; Start 07/31/16 at 21:00 Diagnostic Test (Pha) (Accucheck) If HS dose is administer... 02 XX ; Start 07/07 at 02:00 Atenolol (Tenormin) 25 mg BID PO Last administered on 08/03/16 08:51; Admin Dose 25 MG; Start 08/01/16 at 21:00 Acetaminophen (Tylenol Tab) 650 mg Q6H PRN PO PAIN AND OR ELEVATED TEMP Last administered on 08/03/16 08:51; Admin Dose 650 MG; Start 08/02/16 at 16:00 Phenytoin (Dilantin) 200 mg HS PO ; Start 08/03/16 at 21:00 BLADE CHATTERJEE NP Aug 03, 2016 15:25
[2016-08-03 20:17] VITALS: BP 130/92; RESP 18
[2016-08-03] MEDS: PHENYTOIN 100 MG CAP PO SCH (21:03)
[2016-08-03] MEDS: INSULIN GLARGINE [LANtus] 3 ML PEN SC SCH (21:05)
[2016-08-04] MEDS: ACCUCHECK XX SCH (02:00)
[2016-08-04 06:40] LABS: PHOSPHORUS 3.7 mg/dl (2.5-4.9); POTASSIUM 4.6 mmol/L (3.5-5.1)
[2016-08-04 06:43] LABS: CREATININE 0.62 mg/dl (0.61-1.24)
[2016-08-04 06:44] LABS: BASOPHILS % 0.2 % (0.0-2.0); CALCIUM 9.5 mg/dl (8.4-10.2); EOSINOPHILS # 0.3 10^3/ul (0.0-0.5); EOSINOPHILS % 3.3 % (0.0-7.0); HEMATOCRIT 44.7 % (42.0-52.0); HEMOGLOBIN 15.4 g/dl (14.0-18.0); LYMPHOCYTES % 19.9 % (15.0-51.0); MEAN CORPUSCULAR HEMOGLOBIN 32.7 pg (29.0-33.0); MEAN CORPUSCULAR HGB CONC 34.4 g/dl (32.0-37.0); MEAN PLATELET VOLUME 7.6 fl (7.4-10.4); MONOCYTE # 0.6 10^3/ul (0.3-0.9); MONOCYTES % 6.3 % (0.0-11.0); NEUTROPHIL # 6.9 10^3/ul (1.6-7.5); NEUTROPHILS % 70.3 % (39.0-77.0); PLATELET COUNT 298 10^3/UL (140-440); RED CELL DISTRIBUTION WIDTH 12.9 % (11.5-14.5); UNCORRECTED WBC 9.8 10^3/ul (4.8-10.8); WHITE BLOOD COUNT 9.8 10^3/ul (4.8-10.8)
[2016-08-04 07:19] LABS: CONDITION 1
[2016-08-04 08:08] VITALS: BP 156/91; RESP 18
[2016-08-04] MEDS: LEVETIRACETAM 500 MG TAB PO SCH ×2 (08:48→20:25)
[2016-08-04] MEDS: ASPIRIN 81 MG TAB PO SCH (08:48)
[2016-08-04] MEDS: ATENOLOL 25 MG TAB PO SCH ×2 (08:48→20:25)
[2016-08-04] MEDS: FAMOTIDINE 20 MG INJ IV SCH ×2 (08:48→20:23)
[2016-08-04] MEDS: INSULIN ASPART [NOVOLOG] 3 ML PEN SC SCH ×4 (08:49→20:33)
--- NOTE | 2016-08-04 10:43 | PN ---
Date/Time of Note Date/Time of Note DATE: 08/04/16 TIME: 10:39 Assessment/Plan VTE Prophylaxis VTE Prophylaxis Intervention: SCD's Lines/Catheters IV [facility] Type (from [facility]): Saline Lock Urinary Cath still in place: No Assessment/Plan Chief Complaint/Hosp Course 1. Seizure disorder. Continue anticonvulsants. Continue seizure precautions. 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 S/P lumbar puncture. CSF culture negative. Status post empiric acyclovir. Continue Ativan p.r.n. for breakthrough seizures. Neurology and infectious diseases following. 2. Acute encephalopathy, most probably secondary to postictal state (toxic metabolic encephalopathy). Resolved. 3. Dysphagia, most probably secondary to underlying encephalopathy. Was seen and evaluated by Speech Therapy. Continue to monitor the patient for aspiration. 4. Essential hypertension. Continue antihypertensives including p.r.n. antihypertensives. 5. Status post systemic inflammatory response syndrome with leukocytosis and tachycardia. Etiology unclear. The patient remains afebrile. Continue to monitor. 6. Hyperglycemia. Hemoglobin A1c 5.7. Continue sliding scale insulin. 7. Hypernatremia, most probably secondary to dehydration. Resolved. 8. Fluid, electrolytes and nutrition. Soft diet. Aspiration precautions. 9. Deep venous thrombosis prophylaxis with bilateral sequential compression devices. 10. Gastrointestinal prophylaxis. Histamine 2 receptor blockers. 11. Continue seizure prophylaxis. Continue anti-seizure medications. Await further recommendations from consultants. The patient is medically stable to be transferred to the [facility] for further management. Case discussed with Dr. Mayer. Problems: Subjective 24 Hr Interval Summary Free Text/Dictation No seizure episodes reported. Exam/Review of Systems Vital Signs Vitals Vital Signs Date Time Temp Pulse Resp B/P Pulse Ox O2 Delivery O2 Flow Rate FiO2 08/04/16 08:08 98.3 60 18 156/91 97 08/03/16 09:00 Room Air Intake and Output 08/03/16 08/03/16 08/04/16 15:00 23:00 07:00 Intake Total 1650 ml 480 ml Output Total 1080 ml Balance 1650 ml -600 ml Exam GENERAL: This is a 51-year-old male patient lying in bed in no apparent distress. HEENT: Head normocephalic and atraumatic. Anicteric sclerae. Conjunctivae clear. ENT: Nasal septum is midline. Oral mucosa is dry. NECK: Supple. No JVD noticed. RESPIRATORY: Bilaterally diminished breath sounds. No adventitious breath sounds. No use of accessory muscles of respiration. CARDIAC: Regular rate and rhythm. No murmurs heard. ABDOMEN: Soft, nontender and nondistended. Bowel sounds positive in all 4 quadrants. GENITOURINARY: Deferred. EXTREMITIES: No cyanosis, no clubbing, no edema. Peripheral pulses palpable. NEUROLOGIC: The patient is awake and alert. Forgetful. Follows commands. Moves all four extremities. PSYCHIATRIC: Normal mood and affect. Results Result Diagram: 08/04/16 0502 08/04/16 0502 Results 24 hrs Laboratory Tests Test 08/03/16 11:30 08/03/16 16:45 08/03/16 19:42 08/04/16 05:02 Bedside Glucose 181 111 180 Anion Gap 17 H Basophils # 0.0 Basophils % 0.2 Blood Urea Nitrogen 17 Calcium Level 9.5 Carbon Dioxide Level 25 Chloride Level 103 Creatinine 0.62 Eosinophils # 0.3 Eosinophils % 3.3 Glucose Level 134 Hematocrit 44.7 Hemoglobin 15.4 Lymphocytes # 2.0 Lymphocytes % 19.9 Magnesium Level 2.0 Mean Corpuscular Hemoglobin 32.7 Mean Corpuscular Hemoglobin Concent 34.4 Mean Corpuscular Volume 95.0 Mean Platelet Volume 7.6 Monocytes # 0.6 Monocytes % 6.3 Neutrophils # 6.9 Neutrophils % 70.3 Nucleated Red Blood Cells # 0.0 Nucleated Red Blood Cells % 0.0 Phosphorus Level 3.7 Platelet Count 298 Potassium Level 4.6 Red Blood Count 4.70 Red Cell Distribution Width 12.9 Sodium Level 140 White Blood Count 9.8 Test 08/04/16 08:45 Bedside Glucose 167 Medications Medications Current Medications Lorazepam (Ativan) 0.5 mg Q6H PRN IV ANXIETY Last administered on 07/30/16 14: 49; Admin Dose 0.5 MG; Start 07/28/16 at 14:30 Ondansetron HCl (Zofran Inj) 4 mg Q6H PRN IV NAUSEA AND/OR VOMITING Last administered on 07/28/16 17:40; Admin Dose 4 MG; Start 07/28/16 at 14:30 Aspirin (Aspirin) 81 mg DAILY PO Last administered on 08/04/16 08:48; Admin Dose 81 MG; Start 07/29/16 at 09:00 Morphine Sulfate (morphine) 2 mg Q4H PRN IV PAIN LEVEL 7-10 Last administered on 08/02/16 13:01; Admin Dose 2 MG; Start 07/28/16 at 14:30 Insulin Glargine (Lantus) 10 unit HS SC Last administered on 08/03/16 21:05; Admin Dose 10 UNIT; Start 07/28/16 at 21:00 Lorazepam (Ativan) 2 mg Q1H PRN IV SEIZURE Last administered on 07/31/16 13:45 ; Admin Dose 2 MG; Start 07/28/16 at 14:30 Miscellaneous Information 1 ea NOTE XX ; Start 07/28/16 at 15:00 Glucose (Glutose) 15 gm Q15M PRN PO DECREASED GLUCOSE; Start 07/28/16 at 15:00 Glucose (Glutose) 22.5 gm Q15M PRN PO DECREASED GLUCOSE; Start 07/28/16 at 15:00 Dextrose (D50w Syringe) 25 ml Q15M PRN IV DECREASED GLUCOSE; Start 07/28/16 at 15:00 Dextrose (D50w Syringe) 50 ml Q15M PRN IV DECREASED GLUCOSE; Start 07/28/16 at 15:00 Glucagon (Glucagen) 1 mg Q15M PRN IM DECREASED GLUCOSE; Start 07/28/16 at 15:00 Glucose (Glutose) 15 gm Q15M PRN BUCCAL DECREASED GLUCOSE; Start 07/28/16 at 15: 00 Haloperidol (Haldol) 4 mg Q4 PRN IM AGITATION Last administered on 07/30/16 02: 32; Admin Dose 4 MG; Start 07/29/16 at 02:30 Diphenhydramine HCl (Benadryl) 50 mg Q6H PRN IV agitation; Start 07/29/16 at 13: 00 Phenytoin (Dilantin) 300 mg HS PO Last administered on 07/31/16 20:40; Admin Dose 300 MG; Start 07/30/16 at 21:00; Status Future Hold Hydralazine HCl (Apresoline) 10 mg Q6H PRN IV SBP>160; Start 07/30/16 at 16:30 Famotidine (Pepcid Iv) 20 mg BID IV Last administered on 08/04/16 08:48; Admin Dose 20 MG; Start 07/30/16 at 18:00 Levetiracetam (Keppra) 1,500 mg BID PO Last administered on 08/04/16 08:48; Admin Dose 1,500 MG; Start 07/31/16 at 21:00 Diagnostic Test (Pha) (Accucheck) If HS dose is administer... 02 XX ; Start 07/07 at 02:00 Atenolol (Tenormin) 25 mg BID PO Last administered on 08/04/16 08:48; Admin Dose 25 MG; Start 08/01/16 at 21:00 Acetaminophen (Tylenol Tab) 650 mg Q6H PRN PO PAIN AND OR ELEVATED TEMP Last administered on 08/03/16 08:51; Admin Dose 650 MG; Start 08/02/16 at 16:00 Phenytoin (Dilantin) 200 mg HS PO Last administered on 08/03/16 21:03; Admin Dose 200 MG; Start 08/03/16 at 21:00 BLADE CHATTERJEE NP Aug 04, 2016 10:42
[2016-08-04 17:28] LABS: HERPES SIMPLEX 1 DNA NOT DETECTED; HERPES SIMPLEX 2 DNA NOT DETECTED; HERPES SIMPLEX PCR SOURCE CEREBROSPINAL FLUID
[2016-08-04 20:00] VITALS: BP 154/94; RESP 16
[2016-08-04] MEDS: INSULIN GLARGINE [LANtus] 3 ML PEN SC SCH (20:23)
[2016-08-04] MEDS: ACETAMINOPHEN 325 MG TAB PO PRN (20:25)
[2016-08-04] MEDS: PHENYTOIN 100 MG CAP PO SCH (20:25)
[2016-08-05] MEDS: ACCUCHECK XX SCH (02:00)
[2016-08-05] MEDS: INSULIN ASPART [NOVOLOG] 3 ML PEN SC SCH ×4 (07:55→21:00)
[2016-08-05 07:56] VITALS: BP 156/96; RESP 20
[2016-08-05] MEDS: LEVETIRACETAM 500 MG TAB PO SCH ×2 (09:15→21:00)
[2016-08-05] MEDS: ATENOLOL 25 MG TAB PO SCH ×2 (09:16→21:01)
[2016-08-05] MEDS: FAMOTIDINE 20 MG INJ IV SCH (09:16)
[2016-08-05] MEDS: ASPIRIN 81 MG TAB PO SCH (09:16)
[2016-08-05 11:53] LABS: BASOPHILS % 0.4 % (0.0-2.0); EOSINOPHILS # 0.2 10^3/ul (0.0-0.5); HEMATOCRIT 44.9 % (42.0-52.0); HEMOGLOBIN 15.3 g/dl (14.0-18.0); LYMPHOCYTES # 1.9 10^3/ul (0.8-2.9); LYMPHOCYTES % 20.7 % (15.0-51.0); MEAN CORPUSCULAR HEMOGLOBIN 32.5 pg (29.0-33.0); MEAN CORPUSCULAR VOLUME 95.6 fl (82.0-101.0); MEAN PLATELET VOLUME 7.4 fl (7.4-10.4); MONOCYTE # 0.6 10^3/ul (0.3-0.9); MONOCYTES % 6.5 % (0.0-11.0); NEUTROPHIL # 6.6 10^3/ul (1.6-7.5); NEUTROPHILS % 70.4 % (39.0-77.0); PLATELET COUNT 319 10^3/UL (140-440); RED CELL DISTRIBUTION WIDTH 12.3 % (11.5-14.5); UNCORRECTED WBC 9.4 10^3/ul (4.8-10.8); WHITE BLOOD COUNT 9.4 10^3/ul (4.8-10.8)
[2016-08-05 11:56] LABS: CONDITION 1
[2016-08-05 11:57] LABS: MAGNESIUM 1.9 mg/dl (1.7-2.5); PHOSPHORUS 4.3 mg/dl (2.5-4.9)
[2016-08-05 11:58] LABS: POTASSIUM 5.2 mmol/L (3.5-5.1)
[2016-08-05 12:00] LABS: CREATININE 0.65 mg/dl (0.61-1.24)
[2016-08-05 12:01] LABS: CALCIUM 9.8 mg/dl (8.4-10.2)
--- NOTE | 2016-08-05 13:51 | PN ---
Date/Time of Note Date/Time of Note DATE: 08/05/16 TIME: 13:46 Assessment/Plan VTE Prophylaxis VTE Prophylaxis Intervention: SCD's Lines/Catheters IV Catheter Type (from [facility]): Saline Lock Urinary Cath still in place: No Assessment/Plan Chief Complaint/Hosp Course 1. Seizure disorder. Continue anticonvulsants. Continue seizure precautions. 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 S/P lumbar puncture. CSF culture negative. Status post empiric acyclovir. Continue Ativan p.r.n. for breakthrough seizures. Neurology and infectious diseases following. 2. Acute encephalopathy, most probably secondary to postictal state (toxic metabolic encephalopathy). Resolved. 3. Dysphagia, most probably secondary to underlying encephalopathy. Was seen and evaluated by Speech Therapy. Continue to monitor the patient for aspiration. 4. Essential hypertension. Continue antihypertensives including p.r.n. antihypertensives. 5. Status post systemic inflammatory response syndrome with leukocytosis and tachycardia. Etiology unclear. The patient remains afebrile. Continue to monitor. 6. Hyperglycemia. Hemoglobin A1c 5.7. Continue sliding scale insulin. 7. Hypernatremia, most probably secondary to dehydration. Resolved. 8. Fluid, electrolytes and nutrition. Soft diet. Aspiration precautions. 9. Deep venous thrombosis prophylaxis with bilateral sequential compression devices. 10. Gastrointestinal prophylaxis. Histamine 2 receptor blockers. 11. Continue seizure prophylaxis. Single dose of potassium exchange resin. Continue anti-seizure medications. Await further recommendations from consultants. The patient is medically stable to be transferred to the [facility] for further management. Case discussed with Dr. Mayer. Problems: Subjective 24 Hr Interval Summary Free Text/Dictation No seizure activities reported. Exam/Review of Systems Vital Signs Vitals Vital Signs Date Time Temp Pulse Resp B/P Pulse Ox O2 Delivery O2 Flow Rate FiO2 08/05/16 07:56 98.2 60 20 156/96 100 08/03/16 09:00 Room Air Intake and Output 08/04/16 08/04/16 08/05/16 15:00 23:00 07:00 Intake Total 1040 ml 960 ml Output Total 600 ml 1400 ml Balance 440 ml -440 ml Exam GENERAL: This is a 51-year-old male patient lying in bed in no apparent distress. HEENT: Head normocephalic and atraumatic. Anicteric sclerae. Conjunctivae clear. ENT: Nasal septum is midline. Oral mucosa is dry. NECK: Supple. No JVD noticed. RESPIRATORY: Bilaterally diminished breath sounds. No adventitious breath sounds. No use of accessory muscles of respiration. CARDIAC: Regular rate and rhythm. No murmurs heard. ABDOMEN: Soft, nontender and nondistended. Bowel sounds positive in all 4 quadrants. GENITOURINARY: Deferred. EXTREMITIES: No cyanosis, no clubbing, no edema. Peripheral pulses palpable. NEUROLOGIC: The patient is awake and alert. Forgetful. Follows commands. Moves all four extremities. PSYCHIATRIC: Normal mood and affect. Results Result Diagram: 08/05/16 1105 08/05/16 1105 Results 24 hrs Laboratory Tests Test 08/04/16 17:15 08/04/16 19:47 08/05/16 07:50 08/05/16 11:05 Bedside Glucose 157 168 110 Anion Gap 17 H Basophils # 0.0 Basophils % 0.4 Blood Urea Nitrogen 21 H Calcium Level 9.8 Carbon Dioxide Level 28 Chloride Level 101 Creatinine 0.65 Eosinophils # 0.2 Eosinophils % 2.0 Glucose Level 105 Hematocrit 44.9 Hemoglobin 15.3 Lymphocytes # 1.9 Lymphocytes % 20.7 Magnesium Level 1.9 Mean Corpuscular Hemoglobin 32.5 Mean Corpuscular Hemoglobin Concent 34.0 Mean Corpuscular Volume 95.6 Mean Platelet Volume 7.4 Monocytes # 0.6 Monocytes % 6.5 Neutrophils # 6.6 Neutrophils % 70.4 Nucleated Red Blood Cells # 0.0 Nucleated Red Blood Cells % 0.0 Phosphorus Level 4.3 Platelet Count 319 Potassium Level 5.2 H Red Blood Count 4.70 Red Cell Distribution Width 12.3 Sodium Level 141 White Blood Count 9.4 Test 08/05/16 12:04 Bedside Glucose 105 Medications Medications Current Medications Lorazepam (Ativan) 0.5 mg Q6H PRN IV ANXIETY Last administered on 07/30/16 14: 49; Admin Dose 0.5 MG; Start 07/28/16 at 14:30 Ondansetron HCl (Zofran Inj) 4 mg Q6H PRN IV NAUSEA AND/OR VOMITING Last administered on 07/28/16 17:40; Admin Dose 4 MG; Start 07/28/16 at 14:30 Aspirin (Aspirin) 81 mg DAILY PO Last administered on 08/05/16 09:16; Admin Dose 81 MG; Start 07/29/16 at 09:00 Morphine Sulfate (morphine) 2 mg Q4H PRN IV PAIN LEVEL 7-10 Last administered on 08/02/16 13:01; Admin Dose 2 MG; Start 07/28/16 at 14:30 Insulin Glargine (Lantus) 10 unit HS SC Last administered on 08/04/16 20:23; Admin Dose 10 UNIT; Start 07/28/16 at 21:00 Lorazepam (Ativan) 2 mg Q1H PRN IV SEIZURE Last administered on 07/31/16 13:45 ; Admin Dose 2 MG; Start 07/28/16 at 14:30 Miscellaneous Information 1 ea NOTE XX ; Start 07/28/16 at 15:00 Glucose (Glutose) 15 gm Q15M PRN PO DECREASED GLUCOSE; Start 07/28/16 at 15:00 Glucose (Glutose) 22.5 gm Q15M PRN PO DECREASED GLUCOSE; Start 07/28/16 at 15:00 Dextrose (D50w Syringe) 25 ml Q15M PRN IV DECREASED GLUCOSE; Start 07/28/16 at 15:00 Dextrose (D50w Syringe) 50 ml Q15M PRN IV DECREASED GLUCOSE; Start 07/28/16 at 15:00 Glucagon (Glucagen) 1 mg Q15M PRN IM DECREASED GLUCOSE; Start 07/28/16 at 15:00 Glucose (Glutose) 15 gm Q15M PRN BUCCAL DECREASED GLUCOSE; Start 07/28/16 at 15: 00 Haloperidol (Haldol) 4 mg Q4 PRN IM AGITATION Last administered on 07/30/16 02: 32; Admin Dose 4 MG; Start 07/29/16 at 02:30 Diphenhydramine HCl (Benadryl) 50 mg Q6H PRN IV agitation; Start 07/29/16 at 13: 00 Phenytoin (Dilantin) 300 mg HS PO Last administered on 07/31/16 20:40; Admin Dose 300 MG; Start 07/30/16 at 21:00; Status Future Hold Hydralazine HCl (Apresoline) 10 mg Q6H PRN IV SBP>160; Start 1/9/17 at 16:30 Famotidine (Pepcid Iv) 20 mg BID IV Last administered on 08/05/16 09:16; Admin Dose 20 MG; Start 07/30/16 at 18:00 Levetiracetam (Keppra) 1,500 mg BID PO Last administered on 08/05/16 09:15; Admin Dose 1,500 MG; Start 07/31/16 at 21:00 Diagnostic Test (Pha) (Accucheck) If HS dose is administer... 02 XX ; Start 07/07 at 02:00 Atenolol (Tenormin) 25 mg BID PO Last administered on 08/05/16 09:16; Admin Dose 25 MG; Start 08/01/16 at 21:00 Acetaminophen (Tylenol Tab) 650 mg Q6H PRN PO PAIN AND OR ELEVATED TEMP Last administered on 08/04/16 20:25; Admin Dose 650 MG; Start 08/02/16 at 16:00 Phenytoin (Dilantin) 200 mg HS PO Last administered on 08/04/16 20:25; Admin Dose 200 MG; Start 08/03/16 at 21:00 BLADE CHATTERJEE NP Aug 05, 2016 13:51
[2016-08-05] MEDS ORDERED: NA POLYST SULFON 15 GM/60 ML BTL PO ONE (14:00)
[2016-08-05 20:31] VITALS: BP_SYST 155; BP_SYST 174; BP_DIAS 104; BP_DIAS 93; RESP 20
[2016-08-05 21:00] VITALS: BP 155/96; PULSE 68
[2016-08-05] MEDS: PHENYTOIN 100 MG CAP PO SCH (21:01)
[2016-08-05] MEDS: FAMOTIDINE 20 MG TAB PO SCH (21:01)
[2016-08-05] MEDS: INSULIN GLARGINE [LANtus] 3 ML PEN SC SCH (21:05)
[2016-08-06] MEDS: ACCUCHECK XX SCH (02:00)
[2016-08-06 05:11] LABS: BASOPHILS % 0.1 % (0.0-2.0); EOSINOPHILS # 0.1 10^3/ul (0.0-0.5); EOSINOPHILS % 1.1 % (0.0-7.0); HEMATOCRIT 45.9 % (42.0-52.0); HEMOGLOBIN 15.5 g/dl (14.0-18.0); LYMPHOCYTES % 24.4 % (15.0-51.0); MEAN CORPUSCULAR HEMOGLOBIN 32.4 pg (29.0-33.0); MEAN CORPUSCULAR HGB CONC 33.7 g/dl (32.0-37.0); MEAN CORPUSCULAR VOLUME 96.1 fl (82.0-101.0); MEAN PLATELET VOLUME 7.3 fl (7.4-10.4); MONOCYTE # 0.5 10^3/ul (0.3-0.9); MONOCYTES % 5.9 % (0.0-11.0); NEUTROPHIL # 5.6 10^3/ul (1.6-7.5); NEUTROPHILS % 68.5 % (39.0-77.0); PLATELET COUNT 340 10^3/UL (140-440); RED BLOOD COUNT 4.77 10^6/ul (4.70-6.10); RED CELL DISTRIBUTION WIDTH 12.6 % (11.5-14.5); UNCORRECTED WBC 8.2 10^3/ul (4.8-10.8); WHITE BLOOD COUNT 8.2 10^3/ul (4.8-10.8)
[2016-08-06 05:17] LABS: CONDITION 1
[2016-08-06 05:28] LABS: POTASSIUM 5.2 mmol/L (3.5-5.1)
[2016-08-06 05:30] LABS: CREATININE 0.67 mg/dl (0.61-1.24)
[2016-08-06 05:31] LABS: CALCIUM 9.9 mg/dl (8.4-10.2); PHOSPHORUS 4.6 mg/dl (2.5-4.9)
[2016-08-06 05:32] LABS: MAGNESIUM 1.9 mg/dl (1.7-2.5)
[2016-08-06] MEDS: HALOPERIDOL 5 MG INJ IM PRN (05:42)
[2016-08-06] MEDS: INSULIN ASPART [NOVOLOG] 3 ML PEN SC SCH ×4 (08:00→20:34)
[2016-08-06 08:16] VITALS: BP 149/103; RESP 16
[2016-08-06] MEDS: FAMOTIDINE 20 MG TAB PO SCH ×2 (08:24→20:24)
[2016-08-06] MEDS: LEVETIRACETAM 500 MG TAB PO SCH ×2 (08:24→20:24)
[2016-08-06] MEDS: ASPIRIN 81 MG TAB PO SCH (08:24)
[2016-08-06] MEDS: ATENOLOL 25 MG TAB PO SCH ×2 (08:25→20:26)
--- NOTE | 2016-08-06 14:45 | PN ---
Date/Time of Note Date/Time of Note DATE: 08/06/16 TIME: 14:44 Assessment/Plan VTE Prophylaxis VTE Prophylaxis Intervention: SCD's Lines/Catheters IV [facility]from [facility] Saline Lock Urinary Cath still in place: No Assessment/Plan Chief Complaint/Hosp Course 1. Seizure disorder. Continue anticonvulsants. Continue seizure precautions. 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 S/P lumbar puncture. CSF culture negative. Status post empiric acyclovir. Continue Ativan p.r.n. for breakthrough seizures. Neurology and infectious diseases following. 2. Acute encephalopathy, most probably secondary to postictal state (toxic metabolic encephalopathy)- Improved 3. Dysphagia, most probably secondary to underlying encephalopathy. Was seen and evaluated by Speech Therapy. Continue to monitor the patient for aspiration. 4. Essential hypertension. Continue antihypertensives including p.r.n. antihypertensives. 5. Status post systemic inflammatory response syndrome with leukocytosis and tachycardia. Etiology unclear. The patient remains afebrile. Continue to monitor. 6. Hyperglycemia. Hemoglobin A1c 5.7. Continue sliding scale insulin. 7. Hypernatremia, most probably secondary to dehydration. Resolved. 8. Fluid, electrolytes and nutrition. Soft diet. Aspiration precautions. 9. Deep venous thrombosis prophylaxis with bilateral sequential compression devices. 10. Gastrointestinal prophylaxis. Histamine 2 receptor blockers. Dispo- The patient is medically stable to be transferred [facility] the [facility] for further management Problems: Subjective 24 Hr Interval Summary Constitutional: disoriented Exam/Review of Systems Vital Signs Vitals Vital Signs Date Time Temp Pulse Resp B/P Pulse Ox O2 Delivery O2 Flow Rate FiO2 08/06/16 08:16 98.2 69 16 149/103 97 08/03/16 09:00 Room Air Intake and Output 08/05/16 08/05/16 08/06/16 15:00 23:00 07:00 Intake Total 1320 ml 600 ml Output Total 1800 ml 500 ml Balance -480 ml 100 ml Exam Psych: confusion Respiratory: clear to auscultation Cardiovascular: regular rate and rhythm Gastrointestinal: soft, No distended Musculoskeletal: nl extremities to inspection Results Result Diagram: 08/06/16 0435 08/06/16 0435 Results 24 hrs Laboratory Tests Test 08/05/16 17:12 08/05/16 19:53 08/06/16 04:35 08/06/16 08:16 Bedside Glucose 126 162 138 Anion Gap 16 Basophils # 0.0 Basophils % 0.1 Blood Morphology Comment Blood Urea Nitrogen 20 Calcium Level 9.9 Carbon Dioxide Level 30 Chloride Level 100 Creatinine 0.67 Eosinophils # 0.1 Eosinophils % 1.1 Glucose Level 138 Hematocrit 45.9 Hemoglobin 15.5 Lymphocytes # 2.0 Lymphocytes % 24.4 Magnesium Level 1.9 Mean Corpuscular Hemoglobin 32.4 Mean Corpuscular Hemoglobin Concent 33.7 Mean Corpuscular Volume 96.1 Mean Platelet Volume 7.3 L Monocytes # 0.5 Monocytes % 5.9 Neutrophils # 5.6 Neutrophils % 68.5 Nucleated Red Blood Cells # 0.0 Nucleated Red Blood Cells % 0.0 Phosphorus Level 4.6 Platelet Count 340 Potassium Level 5.2 H Red Blood Count 4.77 Red Cell Distribution Width 12.6 Sodium Level 141 White Blood Count 8.2 Test 08/06/16 12:37 Bedside Glucose 119 Medications Medications Current Medications Lorazepam (Ativan) 0.5 mg Q6H PRN IV ANXIETY Last administered on 07/30/16 14: 49; Admin Dose 0.5 MG; Start 07/28/16 at 14:30 Ondansetron HCl (Zofran Inj) 4 mg Q6H PRN IV NAUSEA AND/OR VOMITING Last administered on 07/28/16 17:40; Admin Dose 4 MG; Start 07/28/16 at 14:30 Aspirin (Aspirin) 81 mg DAILY PO Last administered on 08/06/16 08:24; Admin Dose 81 MG; Start 07/29/16 at 09:00 Morphine Sulfate (morphine) 2 mg Q4H PRN IV PAIN LEVEL 7-10 Last administered on 08/02/16 13:01; Admin Dose 2 MG; Start 07/28/16 at 14:30 Insulin Glargine (Lantus) 10 unit HS SC Last administered on 08/05/16 21:05; Admin Dose 10 UNIT; Start 07/28/16 at 21:00 Lorazepam (Ativan) 2 mg Q1H PRN IV SEIZURE Last administered on 07/31/16 13:45 ; Admin Dose 2 MG; Start 07/28/16 at 14:30 Miscellaneous Information 1 ea NOTE XX ; Start 07/28/16 at 15:00 Glucose (Glutose) 15 gm Q15M PRN PO DECREASED GLUCOSE; Start 07/28/16 at 15:00 Glucose (Glutose) 22.5 gm Q15M PRN PO DECREASED GLUCOSE; Start 07/28/16 at 15:00 Dextrose (D50w Syringe) 25 ml Q15M PRN IV DECREASED GLUCOSE; Start 07/28/16 at 15:00 Dextrose (D50w Syringe) 50 ml Q15M PRN IV DECREASED GLUCOSE; Start 07/28/16 at 15:00 Glucagon (Glucagen) 1 mg Q15M PRN IM DECREASED GLUCOSE; Start 07/28/16 at 15:00 Glucose (Glutose) 15 gm Q15M PRN BUCCAL DECREASED GLUCOSE; Start 07/28/16 at 15: 00 Haloperidol (Haldol) 4 mg Q4 PRN IM AGITATION Last administered on 08/06/16 05 :42; Admin Dose 4 MG; Start 07/29/16 at 02:30 Diphenhydramine HCl (Benadryl) 50 mg Q6H PRN IV agitation Last administered on 08/06/16 01:02; Admin Dose 50 MG; Start 07/29/16 at 13:00 Phenytoin (Dilantin) 300 mg HS PO Last administered on 07/31/16 20:40; Admin Dose 300 MG; Start 07/30/16 at 21:00; Status Future Hold Hydralazine HCl (Apresoline) 10 mg Q6H PRN IV SBP>160; Start 07/30/16 at 16:30 Levetiracetam (Keppra) 1,500 mg BID PO Last administered on 08/06/16 08:24; Admin Dose 1,500 MG; Start 07/31/16 at 21:00 Diagnostic Test (Pha) (Accucheck) If HS dose is administer... 02 XX ; Start 07/07 at 02:00 Atenolol (Tenormin) 25 mg BID PO Last administered on 08/06/16 08:25; Admin Dose 25 MG; Start 08/01/16 at 21:00 Acetaminophen (Tylenol Tab) 650 mg Q6H PRN PO PAIN AND OR ELEVATED TEMP Last administered on 08/04/16 20:25; Admin Dose 650 MG; Start 08/02/16 at 16:00 Phenytoin (Dilantin) 200 mg HS PO Last administered on 08/05/16 21:01; Admin Dose 200 MG; Start 08/03/16 at 21:00 Famotidine (Pepcid) 20 mg BID PO Last administered on 08/06/16 08:24; Admin Dose 20 MG; Start 08/05/16 at 21:00 MARITZA BELTRAN Aug 06, 2016 14:45
[2016-08-06] MEDS: PHENYTOIN 100 MG CAP PO SCH (20:24)
[2016-08-06] MEDS: INSULIN GLARGINE [LANtus] 3 ML PEN SC SCH (20:33)
[2016-08-06 21:16] VITALS: BP 138/85; RESP 20
[2016-08-07] MEDS ORDERED: LORAZEPAM 2 MG INJ IV ONE (01:00)
[2016-08-07 01:30] VITALS: BP 138/89; RESP 19
[2016-08-07] MEDS ORDERED: LORAZEPAM 2 MG INJ IM ONE (01:30)
[2016-08-07] MEDS: ACCUCHECK XX SCH (01:35)
[2016-08-07 02:00] VITALS: BP 135/78; PULSE 87; RESP 19
[2016-08-07 04:00] VITALS: BP 140/82; PULSE 82; RESP 18
[2016-08-07 06:00] VITALS: BP 138/68; PULSE 80; RESP 18
[2016-08-07 08:13] VITALS: BP 163/103; RESP 22
[2016-08-07] MEDS: INSULIN ASPART [NOVOLOG] 3 ML PEN SC SCH ×4 (08:33→21:00)
[2016-08-07] MEDS: LEVETIRACETAM 500 MG TAB PO SCH ×2 (08:34→20:58)
[2016-08-07] MEDS: ASPIRIN 81 MG TAB PO SCH (08:34)
[2016-08-07] MEDS: FAMOTIDINE 20 MG TAB PO SCH ×2 (08:34→20:58)
[2016-08-07] MEDS: ATENOLOL 25 MG TAB PO SCH ×2 (08:36→21:00)
[2016-08-07 09:58] LABS: POTASSIUM 4.4 mmol/L (3.5-5.1)
[2016-08-07 10:01] LABS: CREATININE 0.63 mg/dl (0.61-1.24)
[2016-08-07 10:02] LABS: CALCIUM 9.5 mg/dl (8.4-10.2)
--- NOTE | 2016-08-07 14:46 | PN ---
Date/Time of Note Date/Time of Note DATE: 08/07/16 TIME: 14:44 Assessment/Plan VTE Prophylaxis VTE Prophylaxis Intervention: SCD's Lines/Catheters IV [facility]from [facility] Saline Lock Urinary Cath still in place: No Assessment/Plan Chief Complaint/Hosp Course 1. Seizure disorder. Continue anticonvulsants. Continue seizure precautions. 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 S/P lumbar puncture. CSF culture negative. Status post empiric acyclovir. Continue Ativan p.r.n. for breakthrough seizures. Neurology and infectious diseases following. 2. Acute encephalopathy, most probably secondary to postictal state (toxic metabolic encephalopathy)- Improved 3. Dysphagia, most probably secondary to underlying encephalopathy. Was seen and evaluated by Speech Therapy. Continue to monitor the patient for aspiration. 4. Essential hypertension. Continue antihypertensives including p.r.n. antihypertensives. 5. Status post systemic inflammatory response syndrome with leukocytosis and tachycardia. Etiology unclear. The patient remains afebrile. Continue to monitor. 6. Hyperglycemia. Hemoglobin A1c 5.7. Continue sliding scale insulin. 7. Hypernatremia, most probably secondary to dehydration. Resolved. 8. Fluid, electrolytes and nutrition. Soft diet. Aspiration precautions. 9. Deep venous thrombosis prophylaxis with bilateral sequential compression devices. 10. Gastrointestinal prophylaxis. Histamine 2 receptor blockers. Dispo- The patient is medically stable to be transferred to the [facility] for further management Problems: Subjective 24 Hr Interval Summary Constitutional: disoriented Exam/Review of Systems Vital Signs Vitals Vital Signs Date Time Temp Pulse Resp B/P Pulse Ox O2 Delivery O2 Flow Rate FiO2 08/07/16 08:13 98.1 98 22 163/103 94 08/07/16 06:00 Room Air Intake and Output 08/06/16 08/06/16 08/07/16 15:00 23:00 07:00 Intake Total 1020 ml 650 ml Output Total 800 ml 550 ml Balance 220 ml 100 ml Exam Psych: confusion Respiratory: clear to auscultation Cardiovascular: regular rate and rhythm Gastrointestinal: soft, No distended Musculoskeletal: nl extremities to inspection Results Result Diagram: 08/06/16 0435 08/07/16 0936 Results 24 hrs Laboratory Tests Test 08/06/16 17:50 08/06/16 20:32 08/07/16 08:06 08/07/16 09:36 Bedside Glucose 136 140 167 Anion Gap 17 H Blood Urea Nitrogen 23 H Calcium Level 9.5 Carbon Dioxide Level 26 Chloride Level 99 Creatinine 0.63 Glucose Level 195 Potassium Level 4.4 Sodium Level 138 Test 08/07/16 11:49 Bedside Glucose 120 Medications Medications Current Medications Lorazepam (Ativan) 0.5 mg Q6H PRN IV ANXIETY Last administered on 07/30/16 14: 49; Admin Dose 0.5 MG; Start 07/28/16 at 14:30 Ondansetron HCl (Zofran Inj) 4 mg Q6H PRN IV NAUSEA AND/OR VOMITING Last administered on 07/28/16 17:40; Admin Dose 4 MG; Start 07/28/16 at 14:30 Aspirin (Aspirin) 81 mg DAILY PO Last administered on 08/07/16 08:34; Admin Dose 81 MG; Start 07/29/16 at 09:00 Morphine Sulfate (morphine) 2 mg Q4H PRN IV PAIN LEVEL 7-10 Last administered on 08/02/16 13:01; Admin Dose 2 MG; Start 07/28/16 at 14:30 Insulin Glargine (Lantus) 10 unit HS SC Last administered on 08/06/16 20:33; Admin Dose 10 UNIT; Start 07/28/16 at 21:00 Lorazepam (Ativan) 2 mg Q1H PRN IV SEIZURE Last administered on 07/31/16 13:45 ; Admin Dose 2 MG; Start 07/28/16 at 14:30 Miscellaneous Information 1 ea NOTE XX ; Start 07/28/16 at 15:00 Glucose (Glutose) 15 gm Q15M PRN PO DECREASED GLUCOSE; Start 07/28/16 at 15:00 Glucose (Glutose) 22.5 gm Q15M PRN PO DECREASED GLUCOSE; Start 07/28/16 at 15:00 Dextrose (D50w Syringe) 25 ml Q15M PRN IV DECREASED GLUCOSE; Start 07/28/16 at 15:00 Dextrose (D50w Syringe) 50 ml Q15M PRN IV DECREASED GLUCOSE; Start 07/28/16 at 15:00 Glucagon (Glucagen) 1 mg Q15M PRN IM DECREASED GLUCOSE; Start 07/28/16 at 15:00 Glucose (Glutose) 15 gm Q15M PRN BUCCAL DECREASED GLUCOSE; Start 07/28/16 at 15: 00 Haloperidol (Haldol) 4 mg Q4 PRN IM AGITATION Last administered on 08/06/16 05 :42; Admin Dose 4 MG; Start 07/29/16 at 02:30 Diphenhydramine HCl (Benadryl) 50 mg Q6H PRN IV agitation Last administered on 08/06/16 01:02; Admin Dose 50 MG; Start 07/29/16 at 13:00 Phenytoin (Dilantin) 300 mg HS PO Last administered on 07/31/16 20:40; Admin Dose 300 MG; Start 07/30/16 at 21:00; Status Future Hold Hydralazine HCl (Apresoline) 10 mg Q6H PRN IV SBP>160; Start 07/30/16 at 16:30 Levetiracetam (Keppra) 1,500 mg BID PO Last administered on 08/07/16 08:34; Admin Dose 1,500 MG; Start 07/31/16 at 21:00 Diagnostic Test (Pha) (Accucheck) If HS dose is administer... 02 XX ; Start 07/07 at 02:00 Atenolol (Tenormin) 25 mg BID PO Last administered on 08/07/16 08:36; Admin Dose 25 MG; Start 08/01/16 at 21:00 Acetaminophen (Tylenol Tab) 650 mg Q6H PRN PO PAIN AND OR ELEVATED TEMP Last administered on 08/04/16 20:25; Admin Dose 650 MG; Start 08/02/16 at 16:00 Phenytoin (Dilantin) 200 mg HS PO Last administered on 08/06/16 20:24; Admin Dose 200 MG; Start 08/03/16 at 21:00 Famotidine (Pepcid) 20 mg BID PO Last administered on 08/07/16 08:34; Admin Dose 20 MG; Start 08/05/16 at 21:00 MARITZA BELTRAN Aug 07, 2016 14:46
[2016-08-07 20:54] VITALS: BP 141/93; RESP 20
[2016-08-07] MEDS: DOCUSATE SODIUM 100 MG CAP PO SCH (20:58)
[2016-08-07] MEDS: SENNA TAB PO SCH (20:58)
[2016-08-07] MEDS: PHENYTOIN 100 MG CAP PO SCH (20:59)
[2016-08-07] MEDS: INSULIN GLARGINE [LANtus] 3 ML PEN SC SCH (21:06)
[2016-08-08] MEDS: ACCUCHECK XX SCH (02:00)
[2016-08-08 08:29] VITALS: BP 138/92; RESP 18
[2016-08-08] MEDS: DOCUSATE SODIUM 100 MG CAP PO SCH ×2 (08:36→21:23)
[2016-08-08] MEDS: FAMOTIDINE 20 MG TAB PO SCH ×2 (08:36→21:12)
[2016-08-08] MEDS: SENNA TAB PO SCH ×2 (08:36→21:12)
[2016-08-08] MEDS: LEVETIRACETAM 500 MG TAB PO SCH ×2 (08:37→21:13)
[2016-08-08] MEDS: ASPIRIN 81 MG TAB PO SCH (08:37)
[2016-08-08] MEDS: ATENOLOL 25 MG TAB PO SCH ×2 (08:37→21:14)
[2016-08-08] MEDS: INSULIN ASPART [NOVOLOG] 3 ML PEN SC SCH ×4 (08:40→21:00)
--- NOTE | 2016-08-08 18:22 | PN ---
Date/Time of Note Date/Time of Note DATE: 08/08/16 TIME: 18:11 Assessment/Plan VTE Prophylaxis VTE Prophylaxis Intervention: SCD's Lines/Catheters IV Catheter Type (from [facility]): Saline Lock Urinary Cath still in place: No Assessment/Plan Chief Complaint/Hosp Course 1. Seizure disorder. Continue anticonvulsants. Continue seizure precautions. 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 S/P lumbar puncture. CSF culture negative. Status post empiric acyclovir. Continue Ativan p.r.n. for breakthrough seizures. Neurology and infectious diseases following. 2. Acute encephalopathy-now with lack of Impulse course likely from Hx of Brain trauma -Tele Psych eval 3. Dysphagia, most probably secondary to underlying encephalopathy. Was seen and evaluated by Speech Therapy. Continue to monitor the patient for aspiration -cont current diet 4. Essential hypertension. Continue antihypertensives including p.r.n. antihypertensives. 5. Status post systemic inflammatory response syndrome with leukocytosis and tachycardia. Etiology unclear. The patient remains afebrile. Continue to monitor. 6. Hyperglycemia. Hemoglobin A1c 5.7. Continue sliding scale insulin. 7. Hypernatremia, most probably secondary to dehydration. Resolved. 8. Fluid, electrolytes and nutrition. Soft diet. Aspiration precautions. 9. Deep venous thrombosis prophylaxis with bilateral sequential compression devices. 10. Gastrointestinal prophylaxis. Histamine 2 receptor blockers. Dispo- The patient is medically stable to be transferred to the [facility] for further management Problems: Subjective 24 Hr Interval Summary Constitutional: no complaints Exam/Review of Systems Vital Signs Vitals Vital Signs Date Time Temp Pulse Resp B/P Pulse Ox O2 Delivery O2 Flow Rate FiO2 08/08/16 08:29 98.5 80 18 138/92 98 08/07/16 06:00 Room Air Intake and Output 08/07/16 08/07/16 08/08/16 15:00 23:00 07:00 Intake Total 550 ml Balance 550 ml Exam Constitutional: alert Respiratory: clear to auscultation Cardiovascular: regular rate and rhythm Gastrointestinal: soft, No distended Musculoskeletal: nl extremities to inspection Results Result Diagram: 08/06/16 0435 08/07/16 0936 Results 24 hrs Laboratory Tests Test 08/07/16 21:04 08/08/16 07:49 08/08/16 12:03 08/08/16 17:26 Bedside Glucose 130 157 110 122 Medications Medications Current Medications Lorazepam (Ativan) 0.5 mg Q6H PRN IV ANXIETY Last administered on 07/30/16 14: 49; Admin Dose 0.5 MG; Start 07/28/16 at 14:30 Ondansetron HCl (Zofran Inj) 4 mg Q6H PRN IV NAUSEA AND/OR VOMITING Last administered on 07/28/16 17:40; Admin Dose 4 MG; Start 07/28/16 at 14:30 Aspirin (Aspirin) 81 mg DAILY PO Last administered on 08/08/16 08:37; Admin Dose 81 MG; Start 07/29/16 at 09:00 Morphine Sulfate (morphine) 2 mg Q4H PRN IV PAIN LEVEL 7-10 Last administered on 08/02/16 13:01; Admin Dose 2 MG; Start 07/28/16 at 14:30 Insulin Glargine (Lantus) 10 unit HS SC Last administered on 08/07/16 21:06; Admin Dose 10 UNIT; Start 07/28/16 at 21:00 Lorazepam (Ativan) 2 mg Q1H PRN IV SEIZURE Last administered on 07/31/16 13:45 ; Admin Dose 2 MG; Start 07/28/16 at 14:30 Miscellaneous Information 1 ea NOTE XX ; Start 07/28/16 at 15:00 Glucose (Glutose) 15 gm Q15M PRN PO DECREASED GLUCOSE; Start 07/28/16 at 15:00 Glucose (Glutose) 22.5 gm Q15M PRN PO DECREASED GLUCOSE; Start 07/28/16 at 15:00 Dextrose (D50w Syringe) 25 ml Q15M PRN IV DECREASED GLUCOSE; Start 07/28/16 at 15:00 Dextrose (D50w Syringe) 50 ml Q15M PRN IV DECREASED GLUCOSE; Start 07/28/16 at 15:00 Glucagon (Glucagen) 1 mg Q15M PRN IM DECREASED GLUCOSE; Start 07/28/16 at 15:00 Glucose (Glutose) 15 gm Q15M PRN BUCCAL DECREASED GLUCOSE; Start 07/28/16 at 15: 00 Haloperidol (Haldol) 4 mg Q4 PRN IM AGITATION Last administered on 08/06/16 05 :42; Admin Dose 4 MG; Start 07/29/16 at 02:30 Diphenhydramine HCl (Benadryl) 50 mg Q6H PRN IV agitation Last administered on 08/06/16 01:02; Admin Dose 50 MG; Start 07/29/16 at 13:00 Phenytoin (Dilantin) 300 mg HS PO Last administered on 07/31/16 20:40; Admin Dose 300 MG; Start 07/30/16 at 21:00; Status Future Hold Hydralazine HCl (Apresoline) 10 mg Q6H PRN IV SBP>160; Start 07/30/16 at 16:30 Levetiracetam (Keppra) 1,500 mg BID PO Last administered on 08/08/16 08:37; Admin Dose 1,500 MG; Start 07/31/16 at 21:00 Diagnostic Test (Pha) (Accucheck) If HS dose is administer... 02 XX ; Start 07/07 at 02:00 Atenolol (Tenormin) 25 mg BID PO Last administered on 08/08/16 08:37; Admin Dose 25 MG; Start 08/01/16 at 21:00 Acetaminophen (Tylenol Tab) 650 mg Q6H PRN PO PAIN AND OR ELEVATED TEMP Last administered on 08/04/16 20:25; Admin Dose 650 MG; Start 08/02/16 at 16:00 Phenytoin (Dilantin) 200 mg HS PO Last administered on 08/07/16 20:59; Admin Dose 200 MG; Start 08/03/16 at 21:00 Famotidine (Pepcid) 20 mg BID PO Last administered on 08/08/16 08:36; Admin Dose 20 MG; Start 08/05/16 at 21:00 Docusate Sodium (Colace) 100 mg BID PO Last administered on 08/08/16 08:36; Admin Dose 100 MG; Start 08/07/16 at 21:00 Senna (Senokot) 1 tab BID PO Last administered on 08/08/16 08:36; Admin Dose 1 TAB; Start 08/07/16 at 21:00 MARITZA BELTRAN Aug 08, 2016 18:21
--- NOTE | 2016-08-08 18:32 | PSY ---
Date/Time of Note Date/Time of Note DATE: 08/08/16 TIME: 18:24 Psychiatric Subjective Eval Consent Pt consented to telemedicine: Yes Subjective Evaluation Patient location: inpatient Chief Complaint: Seizure at home witnessed by girlfriend and RA lasted 20 min postictal Reason for consult: Masturbatory behavior, impulsivity History of present illness Patient is a 51 year old male with a history of seizures who was admitted to the inpatient unit. At first he appeared confused. Per report, he has cleared and is alert and oriented. While in the hospital, he has been impulsive and has masturbated in front of people. This is a new behavior for him. No past issue of doing this. Patient seen. Briefly told me his story of seizure activity. Knew his name and reason for being in hospital. Said his last seizure was one month ago. Was off on his age and year. Thought the year was 2024 or ...or 2015. Finally, "2024." He could not name month, day or date of week. He denied any psychiatric history. No si or psychosis. Past psychiatric history Denies Hospitalization: no Family History Denies Medical history Problems Medical Problems: (1) Aspiration pneumonia Status: Acute (2) Encephalopathy acute Status: Acute (3) Encounter for medication refill Status: Acute (4) Generalized tonic-clonic seizure Status: Acute (5) Hypernatremia Status: Acute (6) Hypertension Status: Acute (7) Leukocytosis Status: Acute (8) Seizure disorder Status: Acute (9) Seizures Status: Acute (10) Status epilepticus Status: Acute (11) Subtherapeutic serum dilantin level Status: Acute (12) Ventilatory failure Status: Acute Allergies: Coded Allergies: Penicillins (Verified Allergy, Mild, 07/29/16) penicillin (Verified Allergy, Unknown, 08/31/15) Substance Abuse Substance use: No known substance abuse Social History Marital status: single Level of education: Unknown DPA/Conservatorship: No Occupation/Senior Care: Unknown Psychiatric Objective Eval Mental Status Examination: Appearance: Groomed Eye Contact: Fair Psychomotor Activity: Slow Behavior: Friendly, Cooperative Speech: Soft AFFECT: Blunt Mood: Appropriate/Full Though Process: Illogical Thought Content: Normal Suicidal: No Homicidal: No On 72 hour hold: No Orientation: x2 Cognition: Drowsy Insight: Impared Judgement: Impared Attention Span: Distractible Laboratory Results Laboratory Tests Test 1/16/17 20:32 08/07/16 08:06 08/07/16 09:36 08/07/16 11:49 Bedside Glucose 140mg/dL 167mg/dL 120mg/dL Anion Gap 17 Blood Urea Nitrogen 23mg/dl Calcium Level 9.5mg/dl Carbon Dioxide Level 26mmol/L Chloride Level 99mmol/L Creatinine 0.63mg/dl Glucose Level 195mg/dl Potassium Level 4.4mmol/L Sodium Level 138mmol/L Test 08/07/16 17:16 08/07/16 21:04 08/08/16 07:49 08/08/16 12:03 Bedside Glucose 156mg/dL 130mg/dL 157mg/dL 110mg/dL Test 08/08/16 17:26 Bedside Glucose 122mg/dL Assessment and Plan Assessment/Diagnosis [place] I: Delirium [place] III: Seizure Disorder Recommendation/Plan Medication Management Continue with treatment for seizure disorder. Would minimize use of benzodiazepine prns as they can increase delirium behavior. Masturbatory behavior can be seen in a seizure disorder but suspect delirium. Patient was alert and oriented earlier today. Now, he is not. This represents a fluctuating course. Would not use antipsychotic medications to target delirium due to lowering of seizure threshold unless needed to keep him safe. Psychotherapy Usual delirium protocols. Continue to orient patient. GERSON MADISON Aug 08, 2016 18:32
[2016-08-08 20:25] VITALS: BP 131/83; RESP 19
[2016-08-08] MEDS: INSULIN GLARGINE [LANtus] 3 ML PEN SC SCH (21:22)
[2016-08-08] MEDS: PHENYTOIN 100 MG CAP PO SCH (21:23)
[2016-08-09] MEDS: ACCUCHECK XX SCH (02:00)
[2016-08-09] MEDS: INSULIN ASPART [NOVOLOG] 3 ML PEN SC SCH ×2 (08:00→12:00)
[2016-08-09 08:01] VITALS: BP 128/77; RESP 20
[2016-08-09] MEDS: LEVETIRACETAM 500 MG TAB PO SCH ×2 (09:43→22:01)
[2016-08-09] MEDS: SENNA TAB PO SCH ×2 (09:44→22:04)
[2016-08-09] MEDS: ATENOLOL 25 MG TAB PO SCH ×2 (09:44→22:05)
[2016-08-09] MEDS: ASPIRIN 81 MG TAB PO SCH (09:44)
[2016-08-09] MEDS: DOCUSATE SODIUM 100 MG CAP PO SCH ×2 (09:44→22:00)
[2016-08-09] MEDS: FAMOTIDINE 20 MG TAB PO SCH ×2 (09:44→22:02)
[2016-08-09] MEDS ORDERED: BISACODYL (EC) 5 MG TAB PO ONE (13:00)
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
[2016-08-09 20:37] VITALS: BP 125/81; RESP 20
[2016-08-09] MEDS: PHENYTOIN 100 MG CAP PO SCH (22:01)
[2016-08-09] MEDS: INSULIN GLARGINE [LANtus] 3 ML PEN SC SCH (22:11)
[2016-08-10 08:22] VITALS: BP 135/89; RESP 18
[2016-08-10] MEDS: ASPIRIN 81 MG TAB PO SCH (09:02)
[2016-08-10] MEDS: DOCUSATE SODIUM 100 MG CAP PO SCH (09:02)
[2016-08-10] MEDS: SENNA TAB PO SCH (09:02)
[2016-08-10] MEDS: LEVETIRACETAM 500 MG TAB PO SCH (09:03)
[2016-08-10] MEDS: FAMOTIDINE 20 MG TAB PO SCH (09:03)
[2016-08-10] MEDS: ATENOLOL 25 MG TAB PO SCH (09:03)
--- NOTE | 2016-08-10 15:02 | PDOCDIS ---
Discharge Instructions CONDITION Patient Condition: Good HOME CARE INSTRUCTIONS: Diet Instructions: Regular ACTIVITY: Activity Restrictions: Slowly Increase Activity Do not Drive FOLLOW UP/APPOINTMENTS Appointments F/U WITH YOUR PCP IN 1-2 WEEKS MARITZA BELTRAN Aug 10, 2016 15:02
[2016-08-10] MEDS ORDERED: PHEN100C PO (15:08)
[2016-08-10] MEDS ORDERED: LEVE500T8 PO (15:08)
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
== END 2016-08-10 17:06 | disposition home health service (06) | DRG 100 ==
LOC: E/R 07:47 → PP2 15:42 → MERGE 15:42
PROVIDERS: ADMIT Internal Medicine; ATTEND Internal Medicine
PROC: 009U3ZX Drainage of Spinal Canal, Percutaneous Approach, Diagnostic (ICD-10-PCS; principal; 2016-07-31)
DX: G40.89 Other seizures (principal); G92 Toxic encephalopathy; G93.89 Other specified disorders of brain; R65.10 Systemic inflammatory response syndrome (SIRS) of non-infectious origin without acute organ dysfunction; E87.0 Hyperosmolality and hypernatremia; R47.01 Aphasia; R13.10 Dysphagia, unspecified; E86.0 Dehydration; D72.829 Elevated white blood cell count, unspecified; T42.0X6A Underdosing of hydantoin derivatives, initial encounter; I69.398 Other sequelae of cerebral infarction; R09.02 Hypoxemia; I10 Essential (primary) hypertension; R73.9 Hyperglycemia, unspecified; Z87.820 Personal history of traumatic brain injury; R41.0 Disorientation, unspecified
CPT/HCPCS: 70450; 70551; 80048; 80053; 80061; 80156; 80164; 80184; 80185; 80306; 80307; 82945; 82962; 83036; 83615; 83735; 84100; 84157; 84443; 84484; 85025; 85610; 85730; 86592; 86692; 86694; 86703; 87070; 87529; 89050; 90686; 92526; 92610; 93005; 95819; 97110; 97116; 97162; 97530; A4310; J0133; J1165; J1200; J1630; J1815; J2060; J2270; J2405; J3475; J7042; Q2009

== ENCOUNTER 2016-11-06 08:58 | Emergency (ER) | payer OTHER ==
[~2016-11-06] VITALS: Ht 195.6 cm; Wt 75.5 kg
[~2016-11-06 08:58] MED LIST changes: -LEVE-5 PO; -LEVE100018 PO; +LEVE500T8 PO; +PHEN100C PO; -PHEN300C2 PO; -PHEN300C4 PO
[2016-11-06 09:14] VITALS: Ht 195.6 cm; Wt 75.5 kg
--- NOTE | 2016-11-06 11:27 | ERD ---
ER Documentation Chief Complaint Date/Time DATE: 11/06/16 TIME: 11:26 Chief Complaint ACCIDENTAL OD OF DILANTIN,DIZZINESS.DENIES SI HPI This is a 51-year-old male who is here because he accidentally took an extra dose of Dilantin. The patient takes 300 mg at night and he accidentally took 600 mg this morning. He is completely asymptomatic no headache chest pain shortness of breath diaphoresis. He said he felt a little sleepy at first but now feels better . no seizure ROS All systems reviewed and are negative except as per history of present illness. Medications Home Meds Active Scripts Phenytoin* Sodium Extended (Dilantin*) 100 Mg Capsule, 200 MG PO HS, #90 CAP 2 Refills Prov:MARITZA BELTRAN 08/10/16 Levetiracetam* (Levetiracetam*) 500 Mg Tablet, 1500 MG PO BID, #90 TAB 2 Refills Prov:MARITZA BELTRAN 08/10/16 Atenolol* (Atenolol*) 25 Mg Tablet, 25 MG PO DAILY, #30 TAB Prov:IRENE TAYLOR MD 10/10/15 Reported Medications Atenolol* (Atenolol*) 25 Mg Tablet, 25 MG PO DAILY, #30 TAB 07/28/16 Allergies Allergies: Coded Allergies: Penicillins (Verified Allergy, Mild, 07/29/16) penicillin (Verified Allergy, Unknown, 08/31/15) PMhx/Soc Hx Neurological Disorder: Yes (seizures) Hx Respiratory Disorders: No Hx Cardiac Disorders: Yes (HTN) Hx Psychiatric Problems: No Hx Miscellaneous Medical Probl: No Hx Alcohol Use: Yes (Social) Hx Substance Use: Yes (weed) Hx Tobacco Use: No Smoking Status: Never smoker FmHx Family History: No coronary disease Physical Exam Vitals Vital Signs Date Time Temp Pulse Resp B/P Pulse Ox O2 Delivery O2 Flow Rate FiO2 11/06/16 09:14 98.0 75 18 167/98 97 Physical Exam Const: [Well-developed, well-nourished] Head: [Atraumatic, normocephalic] Eyes: [Normal Conjunctiva, PERRLA, EOMI, normal sclera, no nystagmus] ENT: [Normal External Ears, Nose and Mouth, moist mucus membranes.] Neck: [Full range of motion. No meningismus, no lymphadenopathy.] Resp: [Clear to auscultation bilaterally, no wheezing, rhonchi, rales] Cardio: [Regular rate and rhythm, no murmurs, S1 S2 present] Abd: [Soft, non tender x 4, non distended. Normal bowel sounds, no guarding or rebound, no pulsitile abdominal masses or bruits] Skin: [No petechiae or rashes, no ecchymosis , no maculopapular rash] Back: [No midline or flank tenderness] Ext: [No cyanosis, or edema, FROM x 4, normal inspection, neurovascularly intact x 4] Neur: [Awake and alert, STR 5/5 x 4, sensation intact x 4, no focal findings, cerebellum intact] Psych: [Normal Mood and Affect] Results 24 hrs Laboratory Tests Test 11/06/16 10:48 Phenytoin (Dilantin) Level 10.5ug/ml Procedures/MDM Dilantin level is 10.5. Even taking an extra dose would not increase him into a toxic range He is safe for discharge Departure Diagnosis: Primary Impression: Accidental overdose Encounter type: initial encounter Qualified Code: T50.901A - Accidental overdose, initial encounter Condition: Stable Patient Instructions: Overdose, Accidental (Adult) Referrals: DOCTOR,NOT ON STAFF (PCP) LATRICIA ODOM DO Nov 06, 2016 11:27
== END 2016-11-06 11:27 | disposition home or self-care (01) ==
LOC: E/R 08:58
DX: T42.0X1A Poisoning by hydantoin derivatives, accidental (unintentional), initial encounter (principal); R40.2242 Coma scale, best verbal response, confused conversation, at arrival to emergency department; I10 Essential (primary) hypertension; R40.2142 Coma scale, eyes open, spontaneous, at arrival to emergency department; R40.2362 Coma scale, best motor response, obeys commands, at arrival to emergency department
CPT/HCPCS: 80185; Z7502; 99283

== ENCOUNTER 2017-07-17 13:13 | Emergency (ER) | payer OTHER ==
[~2017-07-17] VITALS: Ht 170.2 cm; Wt 70.0 kg
[2017-07-17 13:32] VITALS: Ht 170.2 cm; Wt 70.0 kg
[2017-07-17] MEDS ORDERED: LORAZEPAM 2 MG INJ IV STA (13:36)
[2017-07-17 13:58] LABS: BASOPHILS % 0.4 % (0.0-2.0); EOSINOPHILS % 0.2 % (0.0-7.0); HEMATOCRIT 41.5 % (42.0-52.0); HEMOGLOBIN 14.4 g/dl (14.0-18.0); LYMPHOCYTES # 0.7 10^3/ul (0.8-2.9); LYMPHOCYTES % 12.6 % (15.0-51.0); MEAN CORPUSCULAR HEMOGLOBIN 32.4 pg (29.0-33.0); MEAN CORPUSCULAR HGB CONC 34.7 g/dl (32.0-37.0); MEAN CORPUSCULAR VOLUME 93.5 fl (82.0-101.0); MEAN PLATELET VOLUME 9.1 fl (7.4-10.4); MONOCYTE # 0.5 10^3/ul (0.3-0.9); MONOCYTES % 8.1 % (0.0-11.0); NEUTROPHIL # 4.4 10^3/ul (1.6-7.5); NEUTROPHILS % 78.2 % (39.0-77.0); PLATELET COUNT 266 10^3/UL (140-415); RED BLOOD COUNT 4.44 10^6/ul (4.70-6.10); RED CELL DISTRIBUTION WIDTH 11.9 % (11.5-14.5); WHITE BLOOD COUNT 5.6 10^3/ul (4.8-10.8)
[2017-07-17 14:25] LABS: ANION GAP 17 (8-16); BLOOD UREA NITROGEN 14 mg/dl (7-20); CALCIUM 9.2 mg/dl (8.4-10.2); CARBON DIOXIDE 21 mmol/L (21-31); CHLORIDE 103 mmol/L (97-110); CREATININE 0.77 mg/dl (0.61-1.24); GLUCOSE 174 mg/dl (70-220); POTASSIUM 4.1 mmol/L (3.5-5.1); SODIUM 137 mmol/L (135-144)
[2017-07-17] MEDS ORDERED: PHENYTOIN 100 MG CAP PO ONE (15:30)
--- NOTE | 2017-07-17 17:16 | ERD ---
ER Documentation Chief Complaint Chief Complaint BIB [facility] FOR EVAL OF SEIZURES. HX OF SZ TAKES KEPPRA AND DILANTIN HPI Patient is a 52-year-old male with seizures who presents with a seizure. Please note the history and physical exam is limited secondary to the patient's recall of the event. The patient says that he may have had a seizure but does not remember the episode. He said that he is taking Keppra and Dilantin says " I am taking both them like I am supposed to". He denies headache. Upon review of old medical records this is the patient's eighth visit to the ER since 2010. He does have a primary doctor. ROS All systems reviewed and are negative except as per history of present illness. Medications Home Meds Active Scripts Phenytoin* Sodium Extended (Dilantin*) 100 Mg Capsule, 200 MG PO HS, #90 CAP 2 Refills Prov:MARITZA BELTRAN 08/10/16 Levetiracetam* (Levetiracetam*) 500 Mg Tablet, 1500 MG PO BID, #90 TAB 2 Refills Prov:MARITZA BELTRAN 08/10/16 Reported Medications Atenolol* (Atenolol*) 25 Mg Tablet, 25 MG PO DAILY, #30 TAB 07/28/16 Discontinued Scripts Atenolol* (Atenolol*) 25 Mg Tablet, 25 MG PO DAILY, #30 TAB Prov:IRENE TAYLOR MD 10/10/15 Allergies Allergies: Coded Allergies: Penicillins (Verified Allergy, Mild, 07/17/17) PMhx/Soc Hx Neurological Disorder: Yes (seizures) Hx Respiratory Disorders: No Hx Cardiac Disorders: Yes (HTN) Hx Psychiatric Problems: No Hx Miscellaneous Medical Probl: No Hx Alcohol Use: Yes (Social) Hx Substance Use: Yes (weed) Hx Tobacco Use: No Smoking Status: Never smoker FmHx Family History: diabetes Physical Exam Vitals Vital Signs Date Time Temp Pulse Resp B/P Pulse Ox O2 Delivery O2 Flow Rate FiO2 07/17/17 13:32 97.5 80 16 154/72 99 Physical Exam Const: No acute distress Head: Atraumatic Eyes: Normal Conjunctiva ENT: Normal External Ears, Nose and Mouth. Neck: Full range of motion..~ No meningismus. Resp: Clear to auscultation bilaterally Cardio: Regular rate and rhythm, no murmurs Abd: Soft, non tender, non distended. Normal bowel sounds Skin: No petechiae or rashes Back: No midline or flank tenderness Ext: No cyanosis, or edema Neur: Awake and alert, no seizure activity at this time Psych: Normal Mood and Affect Result Diagram: 07/17/17 1347 07/17/17 1347 Results 24 hrs Laboratory Tests Test 07/17/17 13:47 07/17/17 13:56 White Blood Count 5.610^3/ul Red Blood Count 4.4410^6/ul Hemoglobin 14.4g/dl Hematocrit 41.5% Mean Corpuscular Volume 93.5fl Mean Corpuscular Hemoglobin 32.4pg Mean Corpuscular Hemoglobin Concent 34.7g/dl Red Cell Distribution Width 11.9% Platelet Count 63035^3/UL Mean Platelet Volume 9.1fl Neutrophils % 78.2% Lymphocytes % 12.6% Monocytes % 8.1% Eosinophils % 0.2% Basophils % 0.4% Nucleated Red Blood Cells % 0.0/100WBC Neutrophils # 4.410^3/ul Lymphocytes # 0.710^3/ul Monocytes # 0.510^3/ul Eosinophils # 0.010^3/ul Basophils # 0.010^3/ul Nucleated Red Blood Cells # 0.010^3/ul Sodium Level 137mmol/L Potassium Level 4.1mmol/L Chloride Level 103mmol/L Carbon Dioxide Level 21mmol/L Anion Gap 17 Blood Urea Nitrogen 14mg/dl Creatinine 0.77mg/dl Glucose Level 174mg/dl Calcium Level 9.2mg/dl Phenytoin (Dilantin) Level < 3.0ug/ml Bedside Glucose 159mg/dL Current Medications Medications (Trade) Dose Ordered Sig/Yessy Route PRN Reason Start Time Stop Time Status Last Admin Dose Admin Lorazepam (Ativan) 1 mg ONCE STAT IV 07/17/17 13:36 07/17/17 13:37 DC 07/17/17 14:02 Phenytoin (Dilantin) 1,000 mg ONCE ONCE PO 07/17/17 15:30 07/17/17 15:31 DC 07/17/17 15:45 Procedures/MDM Patient is a 52-year-old male presents with acute on chronic seizures. The patient says that he is taking Dilantin but his Dilantin level is negative. My sense is the he is not actually taking the Dilantin level as directed. I will load him with 1000 mg of Dilantin in the emergency department and he will be discharged. He should continue to take his Keppra and Dilantin as directed by his doctor. He was given Ativan to prevent further seizure in the emergency department. The patient can return for any worsening symptoms. The patient understands the plan is okay for discharge at this time. I doubt meningitis or hyponatremia. Departure Diagnosis: Primary Impression: Seizure disorder Additional Impression: Seizures Condition: Fair Patient Instructions: Seizure, Recurrent [Adult] Referrals: Your doctor Additional Instructions: Call your primary care doctor TOMORROW for an appointment during the next 1-2 days.See the doctor sooner or return here if your condition worsens before your appointment time. IRENE TAYLOR MD Jul 17, 2017 17:16
[2017-07-17 17:44] VITALS: BP 158/93; PULSE 65; RESP 16; TEMP 97.9
== END 2017-07-17 17:45 | disposition home or self-care (01) ==
LOC: E/R 13:13
DX: G40.909 Epilepsy, unspecified, not intractable, without status epilepticus (principal); R40.2252 Coma scale, best verbal response, oriented, at arrival to emergency department; I10 Essential (primary) hypertension; R40.2142 Coma scale, eyes open, spontaneous, at arrival to emergency department; R40.2362 Coma scale, best motor response, obeys commands, at arrival to emergency department
CPT/HCPCS: 36415; 80048; 80185; 82962; 85025; 96374; J2060; Z7502; Z7610

== ENCOUNTER 2017-09-11 09:02 | Emergency (ER) | END 2017-09-11 11:13 | disposition home or self-care (01) ==

== ENCOUNTER 2018-01-24 14:42 | Emergency (ER) | END 2018-01-24 18:03 | disposition home or self-care (01) ==

== ENCOUNTER 2018-03-20 19:37 | Emergency (ER) | END 2018-03-21 08:30 | disposition home or self-care (01) ==

== ENCOUNTER 2018-05-23 11:26 | Emergency (ER) | END 2018-05-23 16:20 | disposition home or self-care (01) ==

== ENCOUNTER 2018-07-23 09:21 | Emergency (ER) | payer OTHER ==
[~2018-07-23] VITALS: Wt 83.7 kg
[~2018-07-23 09:21] MED LIST changes: +BENA5TAB33 PO; +ERGO500013 PO; +ESCI10TA48 PO; +HYDR25TA6 PO; +LACO200T2 PO; +LEVE10006 PO; -LEVE500T8 PO; +LORA10TA3 PO; +SIMV20TA PO
[2018-07-23] MEDS ORDERED: LORAZEPAM 2 MG INJ IV STA (10:04)
[2018-07-23] MEDS ORDERED: SOD CHLORIDE 0.9% 1,000 ML IV STA (10:04)
--- NOTE | 2018-07-23 10:21 | ERD ---
ER Documentation Chief Complaint Chief Complaint STANDING SAID HAVING SEIZURES HPI This is a 53-year-old male with a past medical history of hypertension, hyperlipidemia, seizure disorder on Vimpat and Keppra with Dilantilinden hernandez d iscontinued, status post vagal nerve stimulator, who is presenting with a reported full body tremor. The patient's tremor is easily suppressible. Before coming into the room, I did not see an obvious tremor. The patient's tremors started when I walked into the room. The patient has no focal deficits. He has no weakness or numbness or tingling to the face or extremities. His coordination is intact. He is able to move all extremities on command. When the patient is following commands, his tremor stops. When the patient is answering questions, his tremor stops. The patient denies feeling sick recently. The patient denies fever or chills. The patient has had no headache or vision changes. The patient does not endorse neck or back pain. The patient denies lightheadedness or dizziness. The patient has had no chest pain or trouble breathing. The patient denies nausea or vomiting. The patient denies abdominal pain. The patient denies changes to bowel movements or urination. The patient has had no focal deficits. The patient has had no weakness or numbness or tingling to the face or extremities. ROS All systems reviewed and are negative except as per history of present illness. Medications Home Meds Reported Medications Ergocalciferol (Vitamin D2) (VITAMIN D2) 50,000 Unit Capsule, 77450 UNIT PO Q7D, CAP 03/20/18 Lacosamide (Vimpat) 200 Mg Tablet, 200 MG PO BID, TAB 03/20/18 Escitalopram Oxalate* (Escitalopram Oxalate*) 10 Mg Tablet, 10 MG PO DAILY, #30 TAB 03/20/18 Benazepril Hcl* (Benazepril Hcl*) 5 Mg Tablet, 5 MG PO DAILY, #30 TAB 03/20/18 Atenolol* (Atenolol*) 25 Mg Tablet, 25 MG PO DAILY, #30 TAB 03/20/18 Hydrochlorothiazide* (Hydrochlorothiazide*) 25 Mg Tab, 25 MG PO DAILY, #30 TAB 03/20/18 Simvastatin* (Zocor*) 20 Mg Tablet, 20 MG PO QHS, #30 TAB 03/20/18 Loratadine* (Loratadine*) 10 Mg Tablet, 10 MG PO DAILY, #30 TAB 03/20/18 Levetiracetam* (Levetiracetam*) 1,000 Mg Tablet, 2000 MG PO BID, TAB 03/20/18 Discontinued Reported Medications Phenytoin* Sodium Extended (Dilantin*) 100 Mg Capsule, 100 MG PO TID, CAP 03/20/18 Allergies Allergies: Coded Allergies: Penicillins (Verified Allergy, Mild, 03/20/18) PMhx/Soc History of Surgery: Yes (tubes in bilateral ears x 3, pacemaker) Anesthesia Reaction: No Hx Neurological Disorder: Yes (focal seizures) Hx Respiratory Disorders: No Hx Cardiac Disorders: Yes (HTN) Hx Psychiatric Problems: No Hx Miscellaneous Medical Probl: Yes (Borderline DM) Hx Alcohol Use: Yes (Social) Hx Substance Use: Yes (weed) Hx Tobacco Use: No Smoking Status: Never smoker FmHx Family History: No diabetes Physical Exam Vitals Vital Signs Date Temp Pulse Resp B/P (MAP) Pulse Ox O2 O2 Flow FiO2 Time Delivery Rate 07/23/18 68 19 137/96 96 Room Air 09:58 (110) 07/23/18 99.7 70 18 153/90 99 09:36 (111) Physical Exam Const: No apparent distress, well-developed, well-nourished Head: Normocephalic, Atraumatic Eyes: Normal Conjunctiva. Extraocular movements intact. Pupils equal, round and reactive to light ENT: Normal External Ears, Nose and Mouth. Neck: Full range of motion. No meningismus. Resp: Clear to auscultation bilaterally, No wheezes, rales or rhonchi Cardio: Regular rate and rhythm. No murmurs, rubs or gallops Abd: Soft, non tender, non distended. Normal bowel sounds Skin: No petechiae or rashes. Multiple tattoos present. Back: No midline tenderness. No CVA tenderness Ext: No cyanosis, or edema Neur: Awake and alert, oriented 4. Cranial nerves intact. No facial droop. Normal strength, sensation and coordination. Repressible tremor, stops when distracted. Psych: Normal Mood and Affect Result Diagram: 07/23/1895407/23/18954 Results 24 hrs Laboratory Tests Test 07/23/18 09:55 07/23/18 10:12 White Blood Count 10.4 10^3/ul Red Blood Count 4.67 10^6/ul Hemoglobin 14.8 g/dl Hematocrit 42.0 % Mean Corpuscular Volume 89.9 fl Mean Corpuscular Hemoglobin 31.7 pg Mean Corpuscular Hemoglobin Concent 35.2 g/dl Red Cell Distribution Width 12.0 % Platelet Count 289 10^3/UL Mean Platelet Volume 9.4 fl Immature Granulocytes % 0.300 % Neutrophils % 80.2 % Lymphocytes % 12.4 % Monocytes % 6.5 % Eosinophils % 0.4 % Basophils % 0.2 % Nucleated Red Blood Cells % 0.0 /100WBC Immature Granulocytes # 0.030 10^3/ul Neutrophils # 8.4 10^3/ul Lymphocytes # 1.3 10^3/ul Monocytes # 0.7 10^3/ul Eosinophils # 0.0 10^3/ul Basophils # 0.0 10^3/ul Nucleated Red Blood Cells # 0.0 10^3/ul Sodium Level 137 mmol/L Potassium Level 3.7 mmol/L Chloride Level 100 mmol/L Carbon Dioxide Level 26 mmol/L Anion Gap 11 Blood Urea Nitrogen 16 mg/dl Creatinine 0.80 mg/dl Est Glomerular Filtrat Rate mL/min > 60 mL/min Glucose Level 167 mg/dl Calcium Level 9.7 mg/dl Total Bilirubin 0.3 mg/dl Direct Bilirubin 0.00 mg/dl Indirect Bilirubin 0.3 mg/dl Aspartate Amino Transf (AST/SGOT) 90 IU/L Alanine Aminotransferase (ALT/SGPT) 123 IU/L Alkaline Phosphatase 104 IU/L Total Protein 7.7 g/dl Albumin 4.6 g/dl Globulin 3.10 g/dl Albumin/Globulin Ratio 1.48 Bedside Glucose 150 mg/dL Current Medications Medications Dose Sig/Yessy Start Time Status Last (Trade) Ordered Route PRN Stop Time Admin Dose Reason Admin Sodium 1,000 ml @ Q1H STAT 07/23/18 DC 07/23/18 Chloride 1,000 mls/hr IV 10:04 07/23/18 10:10 11:03 Lorazepam 1 mg ONCE STAT 07/23/18 DC 07/23/18 (Ativan) IV 10:04 07/23/18 10:10 10:06 Procedures/MDM MDM The patient's presentation warrants further investigation. Previous medical records, if available, were reviewed. LABS The patient's laboratory testing was obtained and reviewed. No emergent treatment was required unless described below. CBC: No E/o of systemic infection or severe anemia or thrombocytopenia CMP: No E/o severe acidosis or alkalosis or renal failure or diabetic ketoacidosis. Mild transaminitis, likely reactive, nonemergent TREATMENT/DISPOSITION The patient presents for a tremor. He is easily distractible and is able to repress the tremor. The patient's symptoms are not consistent with a seizure. The patient has no focal deficits. I have low suspicion for cerebral ischemia or intracranial hemorrhage. The patient was assessed for any possible metabolic pathology. I do not see any metabolic emergencies at this time. I have low suspicion for a cardiac etiology of symptoms. I have low suspicion for thyroid disease. I do not suspect an infectious etiology. The patient was treated with IV fluids and a dose of Ativan which did appear to help calm his nerves. Anxiety versus secondary gain are also possible etiologies. Upon reevaluation of the patient, symptoms have improved. No emergent diagnoses were identified. At this time, I feel that the patient stable for discharge. The patient was instructed to follow-up with a primary care physician in 1-3 days. The patient will be given strict precautions with which to return to the emergency department. Prescriptions: None The patient's blood pressure was elevated at greater than 120/80 while in the emergency department. The patient was otherwise stable with no evidence of hypertensive urgency or emergency. The patient does not require admission for blood pressure control. I have discussed with the patient the risks of hypertension. I have instructed the patient to return to the ER for any new or worsening symptoms including chest pain, shortness of breath, headache, blurred vision, confusion, nausea, vomiting or LOC. I have advised the patient to follow up with the primary care physician for outpatient monitoring and treatment for hypertension in 1-3 days. Disclaimer: Inadvertent spelling and grammatical errors are likely due to EHR/dictation software use and do not reflect on the overall quality of patient care. Note that the electronic time recorded on this note does not necessarily reflect the actual time of the patient encounter. Departure Diagnosis: Primary Impression: Tremor Additional Impressions: Transaminitis History of seizure disorder Condition: ZHAO Shipley MD Jul 23, 2018 10:21
[2018-07-23 12:27] VITALS: BP 126/90; PULSE 67; RESP 20
== END 2018-07-23 12:54 | disposition home or self-care (01) ==
LOC: E/R 09:21
DX: R25.1 Tremor, unspecified (principal); R74.0 Nonspecific elevation of levels of transaminase and lactic acid dehydrogenase [LDH]; G40.909 Epilepsy, unspecified, not intractable, without status epilepticus; I10 Essential (primary) hypertension; E11.9 Type 2 diabetes mellitus without complications; Z95.0 Presence of cardiac pacemaker
CPT/HCPCS: 36415; 80053; 82962; 85025; 96374; J2060; J7030; Z7502

== ENCOUNTER 2018-10-22 16:05 | Inpatient (IN) | payer OTHER ==
[~2018-10-22] VITALS: Ht 188 cm; Wt 68.2 kg
[2018-10-22 16:05] VITALS: Ht 188 cm; Wt 68.2 kg
[~2018-10-22 16:05] MED LIST changes: -PHEN100C PO
[2018-10-22] MEDS ORDERED: LORAZEPAM 2 MG INJ IV STA (16:07)
[2018-10-22] MEDS ORDERED: HYDR25TA6 PO (16:42)
[2018-10-22] MEDS ORDERED: LEVE10006 PO (16:43)
[2018-10-22] MEDS ORDERED: ATEN-51 PO (16:43)
[2018-10-22] MEDS ORDERED: LORA10TA3 PO (16:44)
[2018-10-22] MEDS ORDERED: ESCI10TA48 PO (16:44)
[2018-10-22] MEDS ORDERED: LACO200T2 PO (16:44)
[2018-10-22] MEDS ORDERED: BENA5TAB33 PO (16:45)
[2018-10-22] MEDS ORDERED: SIMV20TA PO (16:45)
[2018-10-22] MEDS ORDERED: CHOL100062 PO (16:46)
[2018-10-22] MEDS ORDERED: PHENYTOIN 1,000 MG in SOD CHLORIDE 0.9% 80 ML IVPB STA (17:27)
--- NOTE | 2018-10-22 17:27 | ERD ---
ER Documentation Chief Complaint Chief Complaint daya fr home, possible seizure denies alcohol use. HPI This is a 53-year-old male with known history of seizure disorder and coronary artery disease with pacemaker placement. The patient was brought to the emergency department by EMS after his roommate stated he had a tonic-clonic s eizure at home. The patient is a poor historian and had difficulty providing any history. He did however answer questions and stated he was not experiencing any chest pain. He denied a headache. He denies any shortness of breath. He states he uses alcohol socially. However his roommate stated that the past history of alcohol abuse and noticed that he used alcohol several days ago. Patient said no recent travel. Patient had no fevers or shaking or chills. Patient did not experience any hemoptysis hematemesis or melanotic stools. There is no blunt head trauma during the seizure activity the patient was sitting down. The patient had shaking of his upper and lower extremities. He did not lose urinary continence or bite his tongue. ROS All systems reviewed and are negative except as per history of present illness. Medications Home Meds Reported Medications Cholecalciferol* (Vitamin D3*) 1,000 Unit Tablet, 1000 UNIT PO DAILY, TAB 10/22/18 Simvastatin* (Zocor*) 20 Mg Tablet, 20 MG PO QHS, #30 TAB 10/22/18 Benazepril Hcl* (Benazepril Hcl*) 5 Mg Tablet, 5 MG PO DAILY, #30 TAB 10/22/18 Lacosamide (Vimpat) 200 Mg Tablet, 200 MG PO BID, TAB 10/22/18 Escitalopram Oxalate* (Escitalopram Oxalate*) 10 Mg Tablet, 10 MG PO DAILY, #30 TAB 10/22/18 Loratadine* (Loratadine*) 10 Mg Tablet, 10 MG PO DAILY, #30 TAB 10/22/18 Levetiracetam* (Levetiracetam*) 1,000 Mg Tablet, 2000 MG PO BID, TAB 10/22/18 Atenolol* (Atenolol*) 25 Mg Tablet, 25 MG PO DAILY, #30 TAB 10/22/18 Hydrochlorothiazide* (Hydrochlorothiazide*) 25 Mg Tab, 25 MG PO DAILY, #30 TAB 10/22/18 Discontinued Reported Medications Ergocalciferol (Vitamin D2) (VITAMIN D2) 50,000 Unit Capsule, 76304 UNIT PO Q7D, CAP 03/20/18 Lacosamide (Vimpat) 200 Mg Tablet, 200 MG PO BID, TAB 03/20/18 Escitalopram Oxalate* (Escitalopram Oxalate*) 10 Mg Tablet, 10 MG PO DAILY, #30 TAB 03/20/18 Benazepril Hcl* (Benazepril Hcl*) 5 Mg Tablet, 5 MG PO DAILY, #30 TAB 03/20/18 Atenolol* (Atenolol*) 25 Mg Tablet, 25 MG PO DAILY, #30 TAB 03/20/18 Hydrochlorothiazide* (Hydrochlorothiazide*) 25 Mg Tab, 25 MG PO DAILY, #30 TAB 03/20/18 Simvastatin* (Zocor*) 20 Mg Tablet, 20 MG PO QHS, #30 TAB 03/20/18 Loratadine* (Loratadine*) 10 Mg Tablet, 10 MG PO DAILY, #30 TAB 03/20/18 Levetiracetam* (Levetiracetam*) 1,000 Mg Tablet, 2000 MG PO BID, TAB 03/20/18 Allergies Allergies: Coded Allergies: Penicillins (Verified Allergy, Mild, 10/22/18) PMhx/Soc History of Surgery: Yes (tubes in bilateral ears x 3, pacemaker) Anesthesia Reaction: No Hx Neurological Disorder: Yes (focal seizures) Hx Respiratory Disorders: No Hx Cardiac Disorders: Yes (HTN) Hx Psychiatric Problems: No Hx Miscellaneous Medical Probl: Yes (Borderline DM) Hx Alcohol Use: Yes (Social) Hx Substance Use: Yes (weed) Hx Tobacco Use: No Physical Exam Vitals Vital Signs Date Temp Pulse Resp B/P (MAP) Pulse Ox O2 O2 Flow FiO2 Time Delivery Rate 10/22/18 102 21 143/96 94 Room Air 18:35 (112) 10/22/18 115 18 139/97 96 Room Air 18:24 (111) 10/22/18 103 18 159/98 100 Room Air 17:35 (118) 10/22/18 98.9 113 18 147/98 98 16:05 (114) Physical Exam Constitutional:Well-developed. Well-nourished. HEENT:Normocephalic. Atraumatic.Pupils were equal round reactive to light. Moist mucous membranes.No tonsillar exudates. Neck: No nuchal rigidity. No lymphadenopathy. No posterior cervical spine tenderness or step-offs. Respiratory: Not using accessory muscles of respiration.Lungs were clear to auscultation bilaterally. No rhonchi. No rales. No wheezing. Cardiovascular: Regular rate regular rhythm.No murmurs. No rubs were appreciated.S1, S2 normal. Distal pulses are palpable 2+ bilaterally. Pacemaker placement in the left chest wall. GI: Abdomen was soft. Nontender. Non Distended. No pulsatile abdominal masses or bruits. No rebound. No guarding. Bowel sounds were present and normal. Muscle skeletal: Full range of motion of both the upper and lower extremities bilaterally.Normal muscle tone.No assymetrical calf tenderness or swelling. Skin: No petechia, no purpura. No lesions on the palms or the soles of the feet. No maculopapular rash. NEURO: Patient was alert, awake, orientated to person place but not to time. Gait not observed as patient was unable to ambulate. Resting tremors of the upper extremities the patient had normal speech had regular rate and rhythm. No focal neurological deficits. Result Diagram: 10/22/18 1654 10/22/18 1654 Results 24 hrs Laboratory Tests Test 10/22/18 16:54 White Blood Count 11.2 10^3/ul Red Blood Count 5.15 10^6/ul Hemoglobin 15.9 g/dl Hematocrit 45.8 % Mean Corpuscular Volume 88.9 fl Mean Corpuscular Hemoglobin 30.9 pg Mean Corpuscular Hemoglobin Concent 34.7 g/dl Red Cell Distribution Width 12.1 % Platelet Count 346 10^3/UL Mean Platelet Volume 9.3 fl Immature Granulocytes % 0.500 % Neutrophils % 78.7 % Lymphocytes % 15.8 % Monocytes % 4.6 % Eosinophils % 0.1 % Basophils % 0.3 % Nucleated Red Blood Cells % 0.0 /100WBC Immature Granulocytes # 0.060 10^3/ul Neutrophils # 8.8 10^3/ul Lymphocytes # 1.8 10^3/ul Monocytes # 0.5 10^3/ul Eosinophils # 0.0 10^3/ul Basophils # 0.0 10^3/ul Nucleated Red Blood Cells # 0.0 10^3/ul Prothrombin Time 13.7 Sec Prothrombin Time Ratio 1.1 INR International Normalized Ratio 1.04 Activated Partial Thromboplast Time 23.5 Sec Sodium Level 137 mmol/L Potassium Level 4.1 mmol/L Chloride Level 103 mmol/L Carbon Dioxide Level 19 mmol/L Anion Gap 15 Blood Urea Nitrogen 20 mg/dl Creatinine 0.91 mg/dl Est Glomerular Filtrat Rate mL/min > 60 mL/min Glucose Level 239 mg/dl Calcium Level 9.9 mg/dl Total Bilirubin 0.6 mg/dl Direct Bilirubin 0.00 mg/dl Indirect Bilirubin 0.6 mg/dl Aspartate Amino Transf (AST/SGOT) 24 IU/L Alanine Aminotransferase (ALT/SGPT) 36 IU/L Alkaline Phosphatase 109 IU/L Total Protein 8.2 g/dl Albumin 4.9 g/dl Globulin 3.30 g/dl Albumin/Globulin Ratio 1.48 Salicylates Level < 1.0 mg/dl Acetaminophen Level < 10.0 ug/ml Phenytoin (Dilantin) Level < 3.0 ug/ml Ethyl Alcohol Level < 10.0 mg/dl Current Medications Medications Dose Sig/Yessy Start Time Status Last (Trade) Ordered Route PRN Stop Time Admin Dose Reason Admin Lorazepam 1 mg ONCE STAT 10/22/18 DC 10/22/18 (Ativan) IV 16:07 10/22/18 16:27 16:12 Phenytoin 100 ml @ ONCE STAT 10/22/18 DC 10/22/18 1000 mg/ 200 mls/hr IVPB 17:27 10/22/18 18:12 Sodium 17:56 Chloride Lorazepam 2 mg ONCE ONCE 10/22/18 DC 10/22/18 (Ativan) IV 18:30 10/22/18 18:34 18:32 Thiamine HCl 101 ml @ Q2H2M STAT 10/22/18 DC 10/22/18 100 50 mls/hr IVPB 19:03 10/22/18 19:52 mg/Sodium 21:04 Chloride Haloperidol 5 mg ONCE ONCE 10/22/18 DC (Haldol) IV 19:30 10/22/18 19:31 Ondansetron 4 mg ER BRIDGE 10/22/18 HCl (Zofran PRN IV 20:30 10/23/18 Inj) NAUSEA/VOMITI 20:29 NG 650 mg ER BRIDGE 10/22/18 Acetaminophen PRN PO 20:30 10/23/18 (Tylenol .MILD PAIN 20:29 Tab) 1-3 OR TEMP 2,000 mg BID PO 10/22/18 Levetiracetam 21:00 (Keppra) Lacosamide 200 mg Q12 PO 10/22/18 (Vimpat Liq) 21:00 Lorazepam 2 mg Q2 PRN IV 10/22/18 (Ativan) SEIZURES 21:00 Atenolol 25 mg DAILY PO 10/22/18 (Tenormin) 21:00 Benazepril 5 mg DAILY PO 10/23/18 HCl 09:00 (Lotensin) 20 mg QHS PO 10/22/18 UNV Miscellaneous 21:00 Information IV Flush 3 ml PER 10/22/18 (NS 3 ml) PROTOCOL IV 21:00 Ondansetron 4 mg Q6H PRN 10/22/18 HCl (Zofran IV 21:00 Inj) NAUSEA/VOMITI NG 650 mg Q6H PRN 10/22/18 Acetaminophen PO .PAIN 1-3 21:00 (Tylenol OR TEMP Tab) Docusate 100 mg Q12H PRN 10/22/18 Sodium PO 21:00 (Colace) .CONSTIPATION Bisacodyl 5 mg DAILY PRN 10/22/18 (Dulcolax) PO 21:00 .CONSTIPATION Procedures/MDM This is a 53-year-old male that presented to the emergency department after having a witnessed tonic-clonic seizure. The patient states he takes Dilantin. Indicates he is been compliant with his medications. Use this on a electronic device monitor continuous pulse ox which IV access was service by nursing staff. He was now complaining of a mild headache, and indicated he had a "shunt" but I did not appreciate any physical exam findings to suggest a cerebral shunt. Therefore I did feel is necessary to obtain a CT scan of the patient's head. 12 Lead EKG tracing ordered and reviewed by myself showed: Normal sinus rhythm of 96 bpm and no arrhythmia. UT interval normal. QRS duration normal. No ST segment elevation No ST segment depression. No changes consistent with acute ischemia. I obtained a Dilantin level and the patient was subtherapeutic with a phenytoin of less than 3. Therefore he was loaded with 1 g of Dilantin intravenously. The patient was hyperkalemic without ketosis blood glucose was 239. The patient did receive a liter bolus of normal saline. I also spoke with the patient's mother Hamida. She indicated that the patient is very poor short-term memory due to recurrent seizures. The patient was also given Ativan intravenously when he arrived. Chest radiograph showed no infiltrates pneumothorax or pleural effusions no suggestion of aspiration pneumonia patient did have a stimulator device present was utilized to help resolve his seizures. Observation Note: Time: 4 hours Family Hx: No Hypertension Evaluation: Multiple exams showed no improvement of the patient's symptoms. He continued to have multiple recurrent seizures in the emergency department. He received 2 doses of Ativan. Loaded with a gram of Dilantin as stated above. However had a recurrent seizure. The patient also appeared very agitated when he was postictal and verbal de-escalation was able to calm the patient down. I did feel he required admission for status epilepticus and he will be admitted under care of Dr. Martinez. I spoke with the patient's mother Hamida who can be reached at [phone] as she lives in [place] Critical Care: Time: 80 minutes Treatments/Evaluations: Close monitoring and treatment of unstable vital signs, cardiorespiratory, and neurologic status, while maintaining tight balance of fluid, respiratory, and cardiac interventions. Time does not include performing any of the above billable procedures. Departure Diagnosis: Primary Impression: Status epilepticus Additional Impression: Hyperglycemia without ketosis Condition: Serious LIEN SIMMONS MD Oct 22, 2018 17:27
[2018-10-22] MEDS ORDERED: LORAZEPAM 2 MG INJ IV ONE (18:30)
[2018-10-22] MEDS ORDERED: THIAMINE 100 MG in SOD CHLORIDE 0.9% 100 ML IVPB STA (19:03)
[2018-10-22] MEDS ORDERED: HALOPERIDOL 5 MG INJ IV ONE (19:30)
[2018-10-22] MEDS ORDERED: ACETAMINOPHEN 325 MG TAB PO PRN ×2 (20:30→21:00)
[2018-10-22] MEDS ORDERED: ONDANSETRON 4 MG INJ IV PRN ×2 (20:30→21:00)
[2018-10-22] MEDS ORDERED: DOCUSATE SODIUM 100 MG CAP PO PRN (21:00)
[2018-10-22] MEDS ORDERED: BISACODYL (EC) 5 MG TAB PO PRN (21:00)
[2018-10-22] MEDS ORDERED: NON-FORMULARY/PATIENT OWN MED (Simvastatin* (Zocor*) 20 MG) PO SCH (21:00)
[2018-10-22] MEDS ORDERED: NACL 0.9% 3 ML SYG IV SCH (21:00)
[2018-10-22] MEDS: ATENOLOL 25 MG TAB PO SCH (22:00)
[2018-10-22] MEDS: LEVETIRACETAM 500 MG TAB PO SCH (22:18)
[2018-10-22] MEDS: ATORVASTATIN 10 MG TAB PO SCH (22:19)
[2018-10-22] MEDS: LACOSAMIDE (100 MG/10 ML PO SYR) PO SCH (22:19)
--- NOTE | 2018-10-22 22:40 | HP ---
Date/Time of Note Date/Time of Note DATE: 10/22/18 TIME: 22:40 Assessment/Plan VTE Prophylaxis SCD applied (from Nsg): Yes Pharmacological prophylaxis: NA/contraindicated Pharm contraindication: low risk/ambulating Lines/Catheters IV Catheter Type (from Nrsg): Saline Lock Assessment/Plan Hospital Course This is a 53-year-old male being admitted to the telemetry floor for observation for: #1 Convulsions: Seizures versus tremors versus other. Patient does have a history of seizure disorder however described to me by his mother and the sap director it appears patient is having tremors but without any loss of consciousness. Nonetheless at the current time given his history we will monitor for seizures. Put him on seizure precautions. He did receive a dose of Dilantin in the ED however he has not been on this medication at home. We will continue Keppra and Vimpat. CT brain does not show any acute abnormalities. Patient is also a heavy marijuana smoker as per his sap director. He also does drink on occasion with last drink a few days ago. Monitor for any withdrawal symptoms. Patient does have a VENA neurostimulator device which may limit him from getting an MRI. Will defer this to neurology. Will consult Dr. gay #2 seizure disorder: Secondary possibly to trauma. Continue Keppra and Vimpat. He did receive a dose of Dilantin in the ED as well. Will defer further med ications to neurology. PRN Ativan as indicated #3 prediabetes: We will check a hemoglobin A1c #4 hypertension: We will continue atenolol and ISABEL inhibitor, hold hydrochlorothiazide given seizure disorder #5 DVT GI prophylaxis: SCDs, no GI prophylaxis indicated Further treatment strategy will be implemented as per the clinical course Result Diagram: 10/22/18 1654 10/22/18 1654 Results 24hrs Laboratory Tests Test 10/22/18 16:54 White Blood Count 11.2 H Red Blood Count 5.15 Hemoglobin 15.9 Hematocrit 45.8 Mean Corpuscular Volume 88.9 Mean Corpuscular Hemoglobin 30.9 Mean Corpuscular Hemoglobin Concent 34.7 Red Cell Distribution Width 12.1 Platelet Count 346 Mean Platelet Volume 9.3 Immature Granulocytes % 0.500 H Neutrophils % 78.7 H Lymphocytes % 15.8 Monocytes % 4.6 Eosinophils % 0.1 Basophils % 0.3 Nucleated Red Blood Cells % 0.0 Immature Granulocytes # 0.060 H Neutrophils # 8.8 H Lymphocytes # 1.8 Monocytes # 0.5 Eosinophils # 0.0 Basophils # 0.0 Nucleated Red Blood Cells # 0.0 Prothrombin Time 13.7 Prothrombin Time Ratio 1.1 INR International Normalized Ratio 1.04 Activated Partial Thromboplast Time 23.5 Sodium Level 137 Potassium Level 4.1 Chloride Level 103 Carbon Dioxide Level 19 L Anion Gap 15 H Blood Urea Nitrogen 20 Creatinine 0.91 Est Glomerular Filtrat Rate mL/min > 60 Glucose Level 239 H Calcium Level 9.9 Total Bilirubin 0.6 Direct Bilirubin 0.00 Indirect Bilirubin 0.6 Aspartate Amino Transf (AST/SGOT) 24 Alanine Aminotransferase (ALT/SGPT) 36 Alkaline Phosphatase 109 Total Protein 8.2 H Albumin 4.9 Globulin 3.30 H Albumin/Globulin Ratio 1.48 Salicylates Level < 1.0 L Acetaminophen Level < 10.0 L Phenytoin (Dilantin) Level < 3.0 L Ethyl Alcohol Level < 10.0 H HPI/ROS Admit Date/Time Admit Date/Time Hx of Present Illness Chief complaint: Seizure Following history was obtained from the ED physician documentation as well as partially from the patient and from the patient's mother and caregiver Em over the phone. This is a 53-year-old male with known history of seizure disorder and coronary artery disease with neurostimulator placement. The patient was brought to the emergency department by EMS after his roommate stated he had a tonic-clonic seizure at home. The patient is a poor historian and had difficulty providing any history. He did however answer questions and stated he was not experiencing any chest pain. He denied a headache. He denies any shortness of breath. He states he uses alcohol socially. However his roommate stated that the past history of alcohol abuse and noticed that he used alcohol several days ago. Patient said no recent travel. Patient had no fevers or shaking or chills. Patient did not experience any hemoptysis hematemesis or melanotic stools. There is no blunt head trauma during the seizure activity the patient was sitting down. The patient had shaking of his upper and lower extremities. He did not lose urinary continence or bite his tongue. Upon speaking to the mother over the phone she did say that the patient has been dealing with tremors which have been increasing over the last few weeks during those episodes the patient does not lose consciousness. He at times does have a blank stare. I also spoke to the caregiver Em over the phone who also confirmed the mother's findings as well to she also reports that the patient smokes a lot of marijuana on a daily basis. Patient does have a neurosurgeon Dr. Jay at [facility] that he is supposed to follow-up with in January in regards to his neurostimulator which was placed apparently to help with his seizure activity. Allergies: Penicillin Medications: See JENNY MALONEY Const: As per HPI Eyes : No pain discharge or redness or change in visual acuity ENT: No pain, sore throat, congestion, congestion, dysphagia or discharge Respiratory: No shortness of breath, cough, sputum, wheezing, or pleuritic pain Cardiovascular: No chest pain, palpitation, PND, or edema GI : no change in appetite, abdominal pain, nausea, vomiting, diarrhea, constipation, or change in the color his stool Genitourinary: No dysuria, hematuria, flank pain , discharge or CVA tenderness Musculoskeletal: No joint pain, back pain, neck pain, restricted range of motion in neck or joints Skin: No rash, bruising or hives Neuro: As per HPI Endocrine: No polyuria, polydipsia, temperature intolerance Psych: No hallucination, depression, anxiety or suicidal ideation PMH/Family/Social Past Medical History Seizure disorder secondary to possible history of trauma in the past, hypertension, prediabetes Medications Current Medications Ondansetron HCl (Zofran Inj) 4 mg ER BRIDGE PRN IV NAUSEA/VOMITING; Start 10/22/18 at 20:30; Stop 10/23/18 at 20:29 Acetaminophen (Tylenol Tab) 650 mg ER BRIDGE PRN PO .MILD PAIN 1-3 OR TEMP; Start 10/22/18 at 20:30; Stop 10/23/18 at 20:29 Levetiracetam (Keppra) 2,000 mg BID PO Last administered on 10/22/18at 22:18; Admin Dose 2,000 MG; Start 10/22/18 at 21:00 Lacosamide (Vimpat Liq) 200 mg Q12 PO Last administered on 10/22/18at 22:19; Admin Dose 200 MG; Start 10/22/18 at 21:00 Lorazepam (Ativan) 2 mg Q2 PRN IV SEIZURES; Start 10/22/18 at 21:00 Atenolol (Tenormin) 25 mg DAILY PO ; Start 10/22/18 at 21:00 Benazepril HCl (Lotensin) 5 mg DAILY PO ; Start 10/23/18 at 09:00 IV Flush (NS 3 ml) 3 ml PER PROTOCOL IV ; Start 10/22/18 at 21:00 Ondansetron HCl (Zofran Inj) 4 mg Q6H PRN IV NAUSEA/VOMITING; Start 10/22/18 at 21:00 Acetaminophen (Tylenol Tab) 650 mg Q6H PRN PO .PAIN 1-3 OR TEMP; Start 10/22/18 at 21:00 Docusate Sodium (Colace) 100 mg Q12H PRN PO .CONSTIPATION; Start 10/22/18 at 21:00 Bisacodyl (Dulcolax) 5 mg DAILY PRN PO .CONSTIPATION; Start 10/22/18 at 21:00 Atorvastatin Calcium (Lipitor) 10 mg DAILY@21 PO Last administered on 10/22/18at 22:19; Admin Dose 10 MG; Start 10/22/18 at 21:00 Coded Allergies: Penicillins (Verified Allergy, Mild, 10/22/18) Past Surgical History Neurostimulator placement Family History Significant Family History: no pertinent family hx Social History Alcohol Use: occasionally Smoking Status: Former smoker Drug Use: marijuana Exam/Review of Systems Vital Signs Vitals Vital Signs Date Temp Pulse Resp B/P (MAP) Pulse Ox O2 O2 Flow FiO2 Time Delivery Rate 10/22/18 112 27 122/96 93 Room Air 21:16 (105) 10/22/18 98.9 16:05 Exam Exam General: Patient is currently lying in bed in no acute distress, he is alert and awake. Slightly disheveled. HEENT: Atraumatic, normocephalic. The pupils are equal, round and reactive. Extraocular motor are intact Neck: Supple with full range of motion. No rigidity or meningismus Chest: Left chest neurostimulator device Lungs: Clear to auscultation bilaterally no crackles rales or wheezing Heart: Normal S1-S2, Regular rhythm and rate. Abdomen: Soft , nontender, nondistended , bowel sounds are present. No guarding no rebound tenderness , No masses or organomegaly. No costovertebral temporal angle mass Extremities: Normal to inspection, no edema no cyanosis Neurologic: Normal mental status, speech normal, cranial nerves II through XII are intact, motor and sensory are intact, no focal weakness Additional Comments EKG: Normal sinus rhythm at approximately 96 bpm, no ST or T wave of normalities concerning for acute ischemia \ PROCEDURE: CT Brain without contrast. CLINICAL INDICATION: Headache. TECHNIQUE: A CT of the brain without contrast was performed utilizing axial sections from the skull base through the vertex. The patient was scanned without intravenous contrast enhancement. Sagittal and coronal reformatted images were obtained using the data from the axial images. Total exam DLP is 634.23 mGy-cm. CTDIvol is 37.59 mGy. One or more of the following dose reduction techniques were used: Automated exposure control, adjustment of the mA and/or kV according to patient size, use of iterative reconstruction technique. DICOM images are available. COMPARISON: 03/20/2018. 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 The fletcher and white matter differentiation is otherwise normal. There is mild enlargement of the ventricles and subarachnoid spaces consistent with atrophy. There is no intracranial hemorrhage or space-occupying lesion. There is no skull fracture or lytic lesion. IMPRESSION: 1. Encephalomalacia in the right posterior lateral temporal lobe, unchanged. 2. Mild atrophy. 3. No intracranial hemorrhage. 4. Otherwise unremarkable noncontrast CT scan of the brain. RPTAT: QQ .Arturo Craven MD, MD Date Time Electronically viewed and signed by .Arturo Craven MD, on 10/22/2018 17:34 .R/ CC: LIEN SIMMONS MD [id number] PROCEDURE: CT Brain without contrast. CLINICAL INDICATION: Headache. TECHNIQUE: A CT of the brain without contrast was performed utilizing axial sections from the skull base through the vertex. The patient was scanned without intravenous contrast enhancement. Sagittal and coronal reformatted images were obtained using the data from the axial images. Total exam DLP is 634.23 mGy-cm. CTDIvol is 37.59 mGy. One or more of the following dose reduction techniques were used: Automated exposure control, adjustment of the mA and/or kV according to patient size, use of iterative reconstruction technique. DICOM images are available. COMPARISON: 03/20/2018. 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 The fletcher and white matter differentiation is otherwise normal. There is mild enlargement of the ventricles and subarachnoid spaces consistent with atrophy. There is no intracranial hemorrhage or space-occupying lesion. There is no skull fracture or lytic lesion. IMPRESSION: 1. Encephalomalacia in the right posterior lateral temporal lobe, unchanged. 2. Mild atrophy. 3. No intracranial hemorrhage. 4. Otherwise unremarkable noncontrast CT scan of the brain. RPTAT: QQ .Arturo Craven MD, MD Date Time Electronically viewed and signed by .Arturo Craven MD, MD on 10/22/2018 17:34 .R/ CC: LIEN SIMMONS MD [id number] SALO CHAUDHRY Oct 22, 2018 22:40
[2018-10-23] MEDS: LACOSAMIDE (100 MG/10 ML PO SYR) PO SCH ×2 (08:51→21:56)
[2018-10-23] MEDS: LEVETIRACETAM 500 MG TAB PO SCH ×2 (08:52→20:49)
[2018-10-23] MEDS: BENAZEPRIL 5 MG TAB PO SCH (08:53)
[2018-10-23] MEDS: THIAMINE 200 MG INJ IM SCH (08:57)
[2018-10-23] MEDS: ATENOLOL 25 MG TAB PO SCH (09:33)
--- NOTE | 2018-10-23 11:17 | CONS ---
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 He reports medication compliance. Head CT is notable for chronic R temporal encephalomalacia.. Of note, he has tried Dilantin in the past P: Await UA, UDS Add Phosphorus level Resume Vimpat and Keppra per ops for now Add Trileptal 300mg bid for now Ativan iv prn prolonged seizure or cluster Check Vimpat and Keppra levels to confirm medication compliance OK to defer MRI brain for now PT/OT/ST as necessary Other management per primary Will follow clinically Consultation Date/Type/Reason Admit Date/Time Type of Consult Neurology Reason for Consultation seizure Requesting Provider: SALO CHAUDHRY Date/Time of Note DATE: 10/23/18 TIME: 11:17 Hx of Present Illness This is a 53-year-old male with known history of seizure disorder and coronary artery disease with neurostimulator placement. The patient was brought to the emergency department by EMS after his roommate stated he had a tonic-clonic seizure at home. The patient is a poor historian and had difficulty providing any history. He did however answer questions and stated he was not experiencing any chest pain. He denied a headache. He denies any shortness of breath. He states he uses alcohol socially. However his roommate stated that the past history of alcohol abuse and noticed that he used alcohol several days ago. Patient said no recent travel. Patient had no fevers or shaking or chills. Patient did not experience any hemoptysis hematemesis or melanotic stools. There is no blunt head trauma during the seizure activity the patient was sitting down. The patient had shaking of his upper and lower extremities. He did not lose urinary continence or bite his tongue. Upon speaking to the mother over the phone she did say that the patient has been dealing with tremors which have been increasing over the last few weeks during those episodes the patient does not lose consciousness. He at times does have a blank stare. I also spoke to the caregiver Em over the phone who also confirmed the mother's findings as well to she also reports that the patient smokes a lot of marijuana on a daily basis. Patient does have a neurosurgeon Dr. Jay at [facility] that he is supposed to follow-up with in January in regards to his neurostimulator which was placed apparently to help with his seizure activity. Allergies: Penicillin 12 PT ROS ow neg Exam/Review of Systems Exam Vitals Vital Signs Date Temp Pulse Resp B/P (MAP) Pulse Ox O2 O2 Flow FiO2 Time Delivery Rate 10/23/18 94 18 124/79 99 Room Air 10:04 (94) 10/23/18 98.3 08:06 Exam PE: Gen Appearance: No Apparent Distress HEENT: Normocephalic Cardiovascular: Regular rate Lungs: Clear bilaterally Abdomen: Soft Extremities: Dry NE: The patient was alert and oriented. Language was normal. Fund of knowledge was normal. Pupils were equal and reactive to light. There was no afferent pupillary defect. Visual grant were normal. Funduscopic examination was limited. Extra-ocular movements were full. Ptosis was absent. There was no nystagmus. Facial sensation was normal. Face was symmetric with normal strength. Hearing was intact. Palate movements were normal. Neck strength was normal. There was normal tongue bulk and speed of movement. Tone was normal. Muscle bulk was normal. I did not see fasciculations. Arms and legs were strong. Vibration sensation was normal. Temperature and pinprick sensation was normal. Rapid alternating movements were normal. There was no dysmetria. There was no intention tremor. Gait was deferred due to bedrest. Arm and leg reflexes were 2+ and symmetric. Mi's sign was absent. Plantar responses were flexor. Results Result Diagram: 10/23/18 0529 10/23/18 0530 Results 24hrs Laboratory Tests Test 10/22/18 16:54 10/23/18 05:29 10/23/18 05:30 White Blood Count 11.2 H 10.5 Red Blood Count 5.15 4.84 Hemoglobin 15.9 15.2 Hematocrit 45.8 44.2 Mean Corpuscular Volume 88.9 91.3 Mean Corpuscular Hemoglobin 30.9 31.4 Mean Corpuscular Hemoglobin Concent 34.7 34.4 Red Cell Distribution Width 12.1 12.0 Platelet Count 346 292 Mean Platelet Volume 9.3 9.1 Immature Granulocytes % 0.500 H 0.500 H Neutrophils % 78.7 H 67.6 Lymphocytes % 15.8 21.8 Monocytes % 4.6 9.7 Eosinophils % 0.1 0.1 Basophils % 0.3 0.3 Nucleated Red Blood Cells % 0.0 0.0 Immature Granulocytes # 0.060 H 0.050 H Neutrophils # 8.8 H 7.1 Lymphocytes # 1.8 2.3 Monocytes # 0.5 1.0 H Eosinophils # 0.0 0.0 Basophils # 0.0 0.0 Nucleated Red Blood Cells # 0.0 0.0 Prothrombin Time 13.7 Prothrombin Time Ratio 1.1 INR International Normalized Ratio 1.04 Activated Partial Thromboplast Time 23.5 Sodium Level 137 139 Potassium Level 4.1 4.1 Chloride Level 103 101 Carbon Dioxide Level 19 L 26 Anion Gap 15 H 12 Blood Urea Nitrogen 20 22 H Creatinine 0.91 0.82 Est Glomerular Filtrat Rate mL/min > 60 > 60 Glucose Level 239 H 192 Calcium Level 9.9 9.7 Total Bilirubin 0.6 0.7 Direct Bilirubin 0.00 0.00 Indirect Bilirubin 0.6 0.7 Aspartate Amino Transf (AST/SGOT) 24 22 Alanine Aminotransferase (ALT/SGPT) 36 30 Alkaline Phosphatase 109 86 Total Protein 8.2 H 7.9 Albumin 4.9 4.7 Globulin 3.30 H 3.20 Albumin/Globulin Ratio 1.48 1.46 Salicylates Level < 1.0 L Acetaminophen Level < 10.0 L Phenytoin (Dilantin) Level < 3.0 L Ethyl Alcohol Level < 10.0 H Hemoglobin A1c 8.5 H Magnesium Level 2.1 Triglycerides Level 181 H Cholesterol Level 167 LDL Cholesterol, Calculated 83 HDL Cholesterol 48 Cholesterol/HDL Ratio 3.4 Thyroid Stimulating Hormone (TSH) 0.774 Medications Medication Current Medications Ondansetron HCl (Zofran Inj) 4 mg ER BRIDGE PRN IV NAUSEA/VOMITING; Start 10/22/18 at 20:30; Stop 10/23/18 at 20:29 Acetaminophen (Tylenol Tab) 650 mg ER BRIDGE PRN PO .MILD PAIN 1-3 OR TEMP; Sta rt 10/22/18 at 20:30; Stop 10/23/18 at 20:29 Levetiracetam (Keppra) 2,000 mg BID PO Last administered on 10/23/18at 08:52; Admin Dose 2,000 MG; Start 10/22/18 at 21:00 Lacosamide (Vimpat Liq) 200 mg Q12 PO Last administered on 10/23/18at 08:51; Admin Dose 200 MG; Start 10/22/18 at 21:00 Lorazepam (Ativan) 2 mg Q2 PRN IV SEIZURES; Start 10/22/18 at 21:00 Atenolol (Tenormin) 25 mg DAILY PO Last administered on 10/23/18at 09:33; Admin Dose 25 MG; Start 10/22/18 at 21:00 Benazepril HCl (Lotensin) 5 mg DAILY PO Last administered on 10/23/18at 08:53; Admin Dose 5 MG; Start 10/23/18 at 09:00 IV Flush (NS 3 ml) 3 ml PER PROTOCOL IV ; Start 10/22/18 at 21:00 Ondansetron HCl (Zofran Inj) 4 mg Q6H PRN IV NAUSEA/VOMITING; Start 10/22/18 at 21:00 Acetaminophen (Tylenol Tab) 650 mg Q6H PRN PO .PAIN 1-3 OR TEMP; Start 10/22/18 at 21:00 Docusate Sodium (Colace) 100 mg Q12H PRN PO .CONSTIPATION; Start 10/22/18 at 21 :00 Bisacodyl (Dulcolax) 5 mg DAILY PRN PO .CONSTIPATION; Start 10/22/18 at 21:00 Atorvastatin Calcium (Lipitor) 10 mg DAILY@21 PO Last administered on 10/22/18at 22:19; Admin Dose 10 MG; Start 10/22/18 at 21:00 Thiamine HCl (Vitamin B1) 200 mg DAILY IM Last administered on 10/23/18at 08:57; Admin Dose 200 MG; Start 10/23/18 at 09:00; Stop 10/26/18 at 08:59 Past Medical History reviewed Home Meds Reported Medications Cholecalciferol* (Vitamin D3*) 1,000 Unit Tablet, 1000 UNIT PO DAILY, TAB 10/22/18 Simvastatin* (Zocor*) 20 Mg Tablet, 20 MG PO QHS, #30 TAB 10/22/18 Benazepril Hcl* (Benazepril Hcl*) 5 Mg Tablet, 5 MG PO DAILY, #30 TAB 10/22/18 Lacosamide (Vimpat) 200 Mg Tablet, 200 MG PO BID, TAB 10/22/18 Escitalopram Oxalate* (Escitalopram Oxalate*) 10 Mg Tablet, 10 MG PO DAILY, #30 TAB 10/22/18 Loratadine* (Loratadine*) 10 Mg Tablet, 10 MG PO DAILY, #30 TAB 10/22/18 Levetiracetam* (Levetiracetam*) 1,000 Mg Tablet, 2000 MG PO BID, TAB 10/22/18 Atenolol* (Atenolol*) 25 Mg Tablet, 25 MG PO DAILY, #30 TAB 10/22/18 Hydrochlorothiazide* (Hydrochlorothiazide*) 25 Mg Tab, 25 MG PO DAILY, #30 TAB 10/22/18 Discontinued Reported Medications Ergocalciferol (Vitamin D2) (VITAMIN D2) 50,000 Unit Capsule, 95460 UNIT PO Q7D, CAP 03/20/18 Lacosamide (Vimpat) 200 Mg Tablet, 200 MG PO BID, TAB 03/20/18 Escitalopram Oxalate* (Escitalopram Oxalate*) 10 Mg Tablet, 10 MG PO DAILY, #30 TAB 03/20/18 Benazepril Hcl* (Benazepril Hcl*) 5 Mg Tablet, 5 MG PO DAILY, #30 TAB 03/20/18 Atenolol* (Atenolol*) 25 Mg Tablet, 25 MG PO DAILY, #30 TAB 03/20/18 Hydrochlorothiazide* (Hydrochlorothiazide*) 25 Mg Tab, 25 MG PO DAILY, #30 TAB 03/20/18 Simvastatin* (Zocor*) 20 Mg Tablet, 20 MG PO QHS, #30 TAB 03/20/18 Loratadine* (Loratadine*) 10 Mg Tablet, 10 MG PO DAILY, #30 TAB 03/20/18 Levetiracetam* (Levetiracetam*) 1,000 Mg Tablet, 2000 MG PO BID, TAB 03/20/18 Medications Current Medications Ondansetron HCl (Zofran Inj) 4 mg ER BRIDGE PRN IV NAUSEA/VOMITING; Start 10/22/18 at 20:30; Stop 10/23/18 at 20:29 Acetaminophen (Tylenol Tab) 650 mg ER BRIDGE PRN PO .MILD PAIN 1-3 OR TEMP; Start 10/22/18 at 20:30; Stop 10/23/18 at 20:29 Levetiracetam (Keppra) 2,000 mg BID PO Last administered on 10/23/18at 08:52; Admin Dose 2,000 MG; Start 10/22/18 at 21:00 Lacosamide (Vimpat Liq) 200 mg Q12 PO Last administered on 10/23/18at 08:51; Admin Dose 200 MG; Start 10/22/18 at 21:00 Lorazepam (Ativan) 2 mg Q2 PRN IV SEIZURES; Start 10/22/18 at 21:00 Atenolol (Tenormin) 25 mg DAILY PO Last administered on 10/23/18at 09:33; Admin Dose 25 MG; Start 10/22/18 at 21:00 Benazepril HCl (Lotensin) 5 mg DAILY PO Last administered on 10/23/18at 08:53; Admin Dose 5 MG; Start 10/23/18 at 09:00 IV Flush (NS 3 ml) 3 ml PER PROTOCOL IV ; Start 10/22/18 at 21:00 Ondansetron HCl (Zofran Inj) 4 mg Q6H PRN IV NAUSEA/VOMITING; Start 10/22/18 at 21:00 Acetaminophen (Tylenol Tab) 650 mg Q6H PRN PO .PAIN 1-3 OR TEMP; Start 10/22/18 at 21:00 Docusate Sodium (Colace) 100 mg Q12H PRN PO .CONSTIPATION; Start 10/22/18 at 21:00 Bisacodyl (Dulcolax) 5 mg DAILY PRN PO .CONSTIPATION; Start 10/22/18 at 21:00 Atorvastatin Calcium (Lipitor) 10 mg DAILY@21 PO Last administered on 10/22/18at 22:19; Admin Dose 10 MG; Start 10/22/18 at 21:00 Thiamine HCl (Vitamin B1) 200 mg DAILY IM Last administered on 10/23/18at 08:57; Admin Dose 200 MG; Start 10/23/18 at 09:00; Stop 10/26/18 at 08:59 Allergies: Coded Allergies: Penicillins (Verified Allergy, Mild, 10/22/18) Past Surgical History reviewed Social History Alcohol Use: occasionally Smoking Status: Former smoker Drug Use: marijuana RUPESH HARRELL Oct 23, 2018 11:17 ONEYDA EDDY NP Oct 23, 2018 14:42
--- NOTE | 2018-10-23 12:35 | QN ---
Documentation Comment Patient has been in the emergency department for over 20 hours without cardiac arrhythmias. I do not believe the patient requires telemetry monitoring at this time he can be downgraded to medical surgical. IRENE TAYLOR MD Oct 23, 2018 12:35
[2018-10-23 14:30] VITALS: BP 131/86; PULSE 72; RESP 18
--- NOTE | 2018-10-23 15:08 | PN ---
Date/Time of Note Date/Time of Note DATE: 10/23/18 TIME: 14:52 Assessment/Plan VTE Prophylaxis SCD applied (from Nsg): Yes Pharmacological prophylaxis: LMWH Lines/Catheters IV Catheter Type (from Nrsg): Peripheral IV Assessment/Plan Hospital Course 53-year-old male with known history of seizure disorder and coronary artery disease with pacemaker placement. The patient was brought to the emergency department by EMS after his roommate stated he had a tonic-clonic seizure at home. managed as follows: 1. Breakthrough seizures, likely 2/2 non compliance -dilantin levels were barely detectable however dilantin is not listed in his home meds -patient doesn't seem to know what he should be taking -s/p VENA neurostimulator device -Neurology also checking Keppra levels 2. prev CVA with temporal l;obe encephalomalacia -seizure focus? 3. DM 2: -new diagnosis?, a1c 8.5 -SSI, diabetic education and diet 4. HTN -controlled on home meds 5. Chronic depression -continue home meds 6. heavy marijuana user -may be contributing to #1, will recommend cessation or at least a more con trolled dosing, will defer to neurology however DISPO: Continue tele obs, dosages of meds adjusted, start hypoglycemic and DM education, possible d/c tomorrow if he remains stable ambulate and PT if needed Result Diagram: 10/23/18 0529 10/23/18 0530 Results 24hrs Laboratory Tests Test 10/22/18 16:54 10/23/18 05:29 10/23/18 05:30 White Blood Count 11.2 H 10.5 Red Blood Count 5.15 4.84 Hemoglobin 15.9 15.2 Hematocrit 45.8 44.2 Mean Corpuscular Volume 88.9 91.3 Mean Corpuscular Hemoglobin 30.9 31.4 Mean Corpuscular Hemoglobin Concent 34.7 34.4 Red Cell Distribution Width 12.1 12.0 Platelet Count 346 292 Mean Platelet Volume 9.3 9.1 Immature Granulocytes % 0.500 H 0.500 H Neutrophils % 78.7 H 67.6 Lymphocytes % 15.8 21.8 Monocytes % 4.6 9.7 Eosinophils % 0.1 0.1 Basophils % 0.3 0.3 Nucleated Red Blood Cells % 0.0 0.0 Immature Granulocytes # 0.060 H 0.050 H Neutrophils # 8.8 H 7.1 Lymphocytes # 1.8 2.3 Monocytes # 0.5 1.0 H Eosinophils # 0.0 0.0 Basophils # 0.0 0.0 Nucleated Red Blood Cells # 0.0 0.0 Prothrombin Time 13.7 Prothrombin Time Ratio 1.1 INR International Normalized Ratio 1.04 Activated Partial Thromboplast Time 23.5 Sodium Level 137 139 Potassium Level 4.1 4.1 Chloride Level 103 101 Carbon Dioxide Level 19 L 26 Anion Gap 15 H 12 Blood Urea Nitrogen 20 22 H Creatinine 0.91 0.82 Est Glomerular Filtrat Rate mL/min > 60 > 60 Glucose Level 239 H 192 Calcium Level 9.9 9.7 Total Bilirubin 0.6 0.7 Direct Bilirubin 0.00 0.00 Indirect Bilirubin 0.6 0.7 Aspartate Amino Transf (AST/SGOT) 24 22 Alanine Aminotransferase (ALT/SGPT) 36 30 Alkaline Phosphatase 109 86 Total Protein 8.2 H 7.9 Albumin 4.9 4.7 Globulin 3.30 H 3.20 Albumin/Globulin Ratio 1.48 1.46 Salicylates Level < 1.0 L Acetaminophen Level < 10.0 L Phenytoin (Dilantin) Level < 3.0 L Ethyl Alcohol Level < 10.0 H Hemoglobin A1c 8.5 H Magnesium Level 2.1 Triglycerides Level 181 H Cholesterol Level 167 LDL Cholesterol, Calculated 83 HDL Cholesterol 48 Cholesterol/HDL Ratio 3.4 Thyroid Stimulating Hormone (TSH) 0.774 Subjective 24 Hr Interval Summary Free Text/Dictation no jeremie seizures, states he cannot remember much, states he takes dilantin for seizures but cannot remember dose. States last seizure was about 2 weeks ago, states he might have been smoking weed but cannot remember. lives in an apart ment with his girlfriend, Exam/Review of Systems Exam Vitals Vital Signs Date Temp Pulse Resp B/P (MAP) Pulse Ox O2 O2 Flow FiO2 Time Delivery Rate 10/23/18 98.1 74 16 108/77 98 Room Air 14:01 (87) Constitutional: alert, oriented Head: normocephalic Eyes: PERRL Respiratory: clear to auscultation Cardiovascular: regular rate and rhythm; No murmurs/extra sounds Gastrointestinal: soft, non-tender, bowel sounds Extremities: No edema Neurological: lethargic; No confused, No focal weakness Results Results 24hrs Laboratory Tests Test 10/22/18 16:54 10/23/18 05:29 10/23/18 05:30 White Blood Count 11.2 H 10.5 Red Blood Count 5.15 4.84 Hemoglobin 15.9 15.2 Hematocrit 45.8 44.2 Mean Corpuscular Volume 88.9 91.3 Mean Corpuscular Hemoglobin 30.9 31.4 Mean Corpuscular Hemoglobin Concent 34.7 34.4 Red Cell Distribution Width 12.1 12.0 Platelet Count 346 292 Mean Platelet Volume 9.3 9.1 Immature Granulocytes % 0.500 H 0.500 H Neutrophils % 78.7 H 67.6 Lymphocytes % 15.8 21.8 Monocytes % 4.6 9.7 Eosinophils % 0.1 0.1 Basophils % 0.3 0.3 Nucleated Red Blood Cells % 0.0 0.0 Immature Granulocytes # 0.060 H 0.050 H Neutrophils # 8.8 H 7.1 Lymphocytes # 1.8 2.3 Monocytes # 0.5 1.0 H Eosinophils # 0.0 0.0 Basophils # 0.0 0.0 Nucleated Red Blood Cells # 0.0 0.0 Prothrombin Time 13.7 Prothrombin Time Ratio 1.1 INR International Normalized Ratio 1.04 Activated Partial Thromboplast Time 23.5 Sodium Level 137 139 Potassium Level 4.1 4.1 Chloride Level 103 101 Carbon Dioxide Level 19 L 26 Anion Gap 15 H 12 Blood Urea Nitrogen 20 22 H Creatinine 0.91 0.82 Est Glomerular Filtrat Rate mL/min > 60 > 60 Glucose Level 239 H 192 Calcium Level 9.9 9.7 Total Bilirubin 0.6 0.7 Direct Bilirubin 0.00 0.00 Indirect Bilirubin 0.6 0.7 Aspartate Amino Transf (AST/SGOT) 24 22 Alanine Aminotransferase (ALT/SGPT) 36 30 Alkaline Phosphatase 109 86 Total Protein 8.2 H 7.9 Albumin 4.9 4.7 Globulin 3.30 H 3.20 Albumin/Globulin Ratio 1.48 1.46 Salicylates Level < 1.0 L Acetaminophen Level < 10.0 L Phenytoin (Dilantin) Level < 3.0 L Ethyl Alcohol Level < 10.0 H Hemoglobin A1c 8.5 H Magnesium Level 2.1 Triglycerides Level 181 H Cholesterol Level 167 LDL Cholesterol, Calculated 83 HDL Cholesterol 48 Cholesterol/HDL Ratio 3.4 Thyroid Stimulating Hormone (TSH) 0.774 Imaging Imaging PROCEDURE: XR Chest. CLINICAL INDICATION: Shortness of breath. TECHNIQUE: Single frontal view. COMPARISON: None. FINDINGS: The lungs are clear. The heart size is normal. There is a stimulator device overlying the left superior lateral chest with a wire extending superiorly. There is no pleural effusion. There is no pneumothorax. IMPRESSION: 1. Left chest wall stimulator device. 2. Otherwise unremarkable chest radiograph. RPTAT: QQ .Arturo Craven MD, Date Time Electronically viewed and signed by .Arturo Craven MD, on 10/22/2018 17:35 .R/ CC: LIEN SIMMONS MD [id number] PROCEDURE: CT Brain without contrast. CLINICAL INDICATION: Headache. TECHNIQUE: A CT of the brain without contrast was performed utilizing axial sections from the skull base through the vertex. The patient was scanned without intravenous contrast enhancement. Sagittal and coronal reformatted images were obtained using the data from the axial images. Total exam DLP is 634.23 mGy-cm. CTDIvol is 37.59 mGy. One or more of the following dose reduction techniques were used: Automated exposure control, adjustment of the mA and/or kV according to patient size, use of iterative reconstruction technique. DICOM images are available. COMPARISON: 03/20/2018. 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 The fletcher and white matter differentiation is otherwise normal. There is mild enlargement of the ventricles and subarachnoid spaces consistent with atrophy. There is no intracranial hemorrhage or space-occupying lesion. There is no skull fracture or lytic lesion. IMPRESSION: 1. Encephalomalacia in the right posterior lateral temporal lobe, unchanged. 2. Mild atrophy. 3. No intracranial hemorrhage. 4. Otherwise unremarkable noncontrast CT scan of the brain. RPTAT: QQ .Arturo Craven MD, MD Date Time Electronically viewed and signed by .Arturo Craven MD, MD on 10/22/2018 17:34 .R/ CC: LIEN SIMMONS MD [id number] Medications Medication Current Medications Ondansetron HCl (Zofran Inj) 4 mg ER BRIDGE PRN IV NAUSEA/VOMITING; Start 10/22/18 at 20:30; Stop 10/23/18 at 20:29 Acetaminophen (Tylenol Tab) 650 mg ER BRIDGE PRN PO .MILD PAIN 1-3 OR TEMP; Start 10/22/18 at 20:30; Stop 10/23/18 at 20:29 Levetiracetam (Keppra) 2,000 mg BID PO Last administered on 10/23/18 08:52; Admin Dose 2,000 MG; Start 10/22/18 at 21:00 Lacosamide (Vimpat Liq) 200 mg Q12 PO Last administered on 10/23/18at 08:51; Admin Dose 200 MG; Start 10/22/18 at 21:00 Lorazepam (Ativan) 2 mg Q2 PRN IV SEIZURES; Start 10/22/18 at 21:00 Atenolol (Tenormin) 25 mg DAILY PO Last administered on 10/23/18at 09:33; Admin Dose 25 MG; Start 10/22/18 at 21:00 Benazepril HCl (Lotensin) 5 mg DAILY PO Last administered on 10/23/18at 08:53; Admin Dose 5 MG; Start 10/23/18 at 09:00 IV Flush (NS 3 ml) 3 ml PER PROTOCOL IV ; Start 10/22/18 at 21:00 Ondansetron HCl (Zofran Inj) 4 mg Q6H PRN IV NAUSEA/VOMITING; Start 10/22/18 at 21:00 Acetaminophen (Tylenol Tab) 650 mg Q6H PRN PO .PAIN 1-3 OR TEMP Last administered on 10/23/18at 14:48; Admin Dose 650 MG; Start 10/22/18 at 21:00 Docusate Sodium (Colace) 100 mg Q12H PRN PO .CONSTIPATION; Start 10/22/18 at 21:00 Bisacodyl (Dulcolax) 5 mg DAILY PRN PO .CONSTIPATION; Start 10/22/18 at 21:00 Atorvastatin Calcium (Lipitor) 10 mg DAILY@21 PO Last administered on 10/22/18at 22:19; Admin Dose 10 MG; Start 10/22/18 at 21:00 Thiamine HCl (Vitamin B1) 200 mg DAILY IM Last administered on 10/23/18at 08:57; Admin Dose 200 MG; Start 10/23/18 at 09:00; Stop 10/26/18 at 08:59 Oxcarbazepine (Trileptal) 300 mg BID PO ; Start 10/23/18 at 21:00 MONE VICTOR Oct 23, 2018 15:04
[2018-10-23] MEDS ORDERED: GLUCOSE GEL 15 GRAM TUBE PO PRN ×2 (15:30)
[2018-10-23] MEDS ORDERED: DEXTROSE 50% 50 ML SYRINGE IV PRN ×2 (15:30)
[2018-10-23] MEDS ORDERED: GLUCAGON 1 MG INJ IM PRN (15:30)
[2018-10-23] MEDS ORDERED: GLUCOSE GEL 15 GRAM TUBE BUCCAL PRN (15:30)
[2018-10-23] MEDS ORDERED: HYDROCODONE/APAP (5/325) TAB PO PRN (17:30)
[2018-10-23] MEDS: INSULIN ASPART [NOVOLOG] 3 ML PEN SC SCH ×2 (17:31→20:53)
[2018-10-23 20:00] VITALS: BP 117/74; PULSE 82; RESP 19
[2018-10-23] MEDS: ATORVASTATIN 10 MG TAB PO SCH (20:49)
[2018-10-23] MEDS: OXCARBAZEPINE 300 MG TAB PO SCH (20:49)
[2018-10-23] MEDS: INSULIN GLARGINE [LANTus] (100 UNITS/ML) SYG SC SCH (20:54)
[2018-10-24 02:00] VITALS: BP 139/98; PULSE 76; RESP 18
[2018-10-24] MEDS: ACCU-CHEK XX SCH ×3 (02:00→21:37)
--- NOTE | 2018-10-24 07:44 | CONS ---
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 He reports medication compliance. Head CT is notable for chronic R temporal encephalomalacia.. Of note, he has tried Dilantin in the past 10/24/18: The pt had a witnessed seizure episode that appeared to be nonphysiologic. P: Await UA, UDS, EEG Await Vimpat and Keppra levels to confirm medication compliance Continue Vimpat and Keppra per ops for now Continue Trileptal 300mg bid for now, to be titrated to goal as an outpatient Ativan iv prn prolonged seizure or cluster OK to defer MRI brain for now PT/OT/ST as necessary Other management per primary Will follow clinically Consultation Date/Type/Reason Admit Date/Time Oct 22, 2018 at 20:32 Type of Consult Neurology Reason for Consultation seizure Requesting Provider: SALO CHAUDHRY Date/Time of Note DATE: 10/24/18 TIME: 07:43 24 HR Interval Summary Free Text/Dictation Continues acute care. Pt reportedly had a witnessed seizure today. The pt was able to tell me that he was awake for during the episode and had involuntary movements of his arms and legs, arms> legs. He endorsed feeling weak afterwards. Exam Vital Signs Vitals Vital Signs Date Temp Pulse Resp B/P (MAP) Pulse Ox O2 O2 Flow FiO2 Time Delivery Rate 10/24/18 97.8 76 18 139/98 95 02:00 (112) 10/23/18 Room Air 14:30 Intake and Output 10/23/18 10/23/18 10/24/18 1515:00 23:00 07:00 IntakeIntake Total 380 ml BalanceBalance 380 ml Exam PE: Gen Appearance: No Apparent Distress HEENT: Normocephalic Cardiovascular: Regular rate Abdomen: Soft Extremities: Dry NE: The patient was alert and oriented. Language was normal. Fund of knowledge was normal. Pupils were equal and reactive to light. There was no afferent pupillary defect. Visual grant were normal. Funduscopic examination was limited. Extra-ocular movements were full. Ptosis was absent. There was no nystagmus. Facial sensation was normal. Face was symmetric with normal strength. Hearing was intact. Palate movements were normal. Neck strength was normal. There was normal tongue bulk and speed of movement. Tone was normal. Muscle bulk was normal. I did not see fasciculations. Arms and legs were strong. Vibration sensation was normal. Temperature and pinprick sensation was normal. Rapid alternating movements were normal. There was no dysmetria. There was no intention tremor. Gait was deferred due to bedrest. Arm and leg reflexes were 2+ and symmetric. Mi's sign was absent. Plantar responses were flexor. RUPESH HARRELL Oct 24, 2018 07:44 ONEYDA EDDY NP Oct 24, 2018 12:10
[2018-10-24] MEDS: LORAZEPAM 2 MG INJ IV PRN ×2 (07:46→10:14)
[2018-10-24 08:00] VITALS: BP 149/97; PULSE 88; RESP 18
[2018-10-24] MEDS: INSULIN ASPART [NOVOLOG] 3 ML PEN SC SCH ×4 (08:15→21:00)
[2018-10-24] MEDS: ENOXAPARIN 40 MG/0.4 ML SYG SC SCH (08:16)
[2018-10-24] MEDS: BENAZEPRIL 5 MG TAB PO SCH (08:18)
[2018-10-24] MEDS: OXCARBAZEPINE 300 MG TAB PO SCH ×2 (08:18→21:37)
[2018-10-24] MEDS: LEVETIRACETAM 500 MG TAB PO SCH ×2 (08:18→21:35)
[2018-10-24] MEDS: ATENOLOL 25 MG TAB PO SCH (08:19)
[2018-10-24] MEDS: LACOSAMIDE (100 MG/10 ML PO SYR) PO SCH ×2 (08:19→21:39)
[2018-10-24] MEDS: THIAMINE 200 MG INJ IM SCH (11:25)
--- NOTE | 2018-10-24 12:25 | PN ---
Date/Time of Note Date/Time of Note DATE: 10/24/18 TIME: 12:03 Assessment/Plan VTE Prophylaxis Risk score (from Nsg)>0 risk: 3 SCD applied (from Ns): Yes Pharmacological prophylaxis: NA/contraindicated Pharm contraindication: low risk/ambulating Lines/Catheters IV [facility] (from [facility]): Peripheral IV Assessment/Plan Hospital Course 53-year-old male with known history of seizure disorder and coronary artery disease with pacemaker placement. The patient was brought to the emergency department by EMS after his roommate stated he had a tonic-clonic seizure at home. managed as follows: 1. Tremor / jerk like movements in patient with hx of seizure d/o -This is a definitely not breakthrough seizures, I am uncertain what they are however, will defer to neurology -s/p VENA neurostimulator device -We will likely need 24-hour EEG monitoring 2. prev CVA with temporal lobe encephalomalacia -seizure focus? 3. DM 2: -new diagnosis?, a1c 8.5 , patient was Prediabetic prior -SSI, diabetic education and diet 4. HTN -controlled on home meds 5. Chronic depression -continue home meds 6. heavy marijuana user -may be contributing to #1, patient states he uses marijuana use, though he is unsure as he has been having memory loss likely related to #2 7. Chronic memory loss. -Patient does not seem to remember much. Regarding his social status, he is disabled and resides with a disabled girlfriend. They have a caregiver who c omes to check on them for 3 hours/day. This is the one who is small aware of his medical history and problems. Patient is an extremely poor historian DISPO: -Spoke with neurology, they will see patient, Reynold and Michaelt level still pending, but this may take a while. Patient will likely need 24-hour EEG monitoring which cannot be done here and will need to be done as outpatient. If no further recommendations from neurology will plan to discharge patient home tomorrow for continued followed outpatient -Medications have already been adjusted. Note that what nurses have been calling the seizure is not a seizure -ambulate and PT if needed Result Diagram: 10/24/18 0541 10/24/18 0541 Results 24hrs Laboratory Tests Test 10/23/18 14:58 10/23/18 17:19 10/23/18 20:48 10/24/18 02:27 Phosphorus Level 3.3 Bedside Glucose 148 202 187 Test 10/24/18 05:41 10/24/18 08:09 10/24/18 10:21 White Blood Count 8.5 Red Blood Count 4.97 Hemoglobin 15.4 Hematocrit 45.2 Mean Corpuscular Volume 90.9 Mean Corpuscular 31.0 Hemoglobin Mean Corpuscular 34.1 Hemoglobin Concent Red Cell Distribution 11.9 Width Platelet Count 275 Mean Platelet Volume 9.1 Immature Granulocytes % 0.400 Neutrophils % 64.4 Lymphocytes % 26.0 Monocytes % 8.4 Eosinophils % 0.6 Basophils % 0.2 Nucleated Red Blood 0.0 Cells % Immature Granulocytes # 0.030 Neutrophils # 5.5 Lymphocytes # 2.2 Monocytes # 0.7 Eosinophils # 0.1 Basophils # 0.0 Nucleated Red Blood 0.0 Cells # Sodium Level 138 Potassium Level 4.1 Chloride Level 103 Carbon Dioxide Level 23 Anion Gap 12 Blood Urea Nitrogen 24 H Creatinine 0.82 Est Glomerular Filtrat > 60 Rate mL/min Glucose Level 186 Calcium Level 9.5 Magnesium Level 2.1 Bedside Glucose 185 216 Subjective 24 Hr Interval Summary Free Text/Dictation got a chance to speak to caregiver, seizures are more of upper body tremors/ jerks, patient does not lose consciousness, there seems to be an awareness effect, i.e when distracted, symptoms stop. these are said to be intermittent a nd non provoked and patient is said to have become less functional and more lethargic since symptoms started. Symptoms said to have started about 4 months ago. Patient said to have been a very heavy marijuana use until about 2 months ago. Caregiver does not want to take him home until we figure out why he's having this. Has seen neurology multiple times as outpatient, but as he is not actively having the symptoms when he was being seen, not much has not been done. Exam/Review of Systems Exam Vitals Vital Signs Date Temp Pulse Resp B/P (MAP) Pulse Ox O2 O2 Flow FiO2 Time Delivery Rate 10/24/18 98.2 88 18 149/97 96 Room Air 08:00 (114) Intake and Output 10/23/18 10/23/18 10/24/18 1515:00 23:00 07:00 IntakeIntake Total 380 ml BalanceBalance 380 ml Constitutional: alert, oriented, other (mildly lethargic ) Psych: nl mood/affect Head: normocephalic, atraumatic Eyes: PERRL ENMT: mucosa pink and moist Neck: supple, non-tender Respiratory: clear to auscultation, normal air movement Cardiovascular: regular rate and rhythm, nl pulses Gastrointestinal: soft, non-tender, bowel sounds Musculoskeletal: nl extremities to inspection Extremities: normal pulses Neurological: nl speech, nl strength, DTR's symmetric, other (Tremor / jerklike movements affecting upper torso a long, intermittent, not present when patient is distracted.); No confused, No focal weakness Skin: No rash or lesions Results Results 24hrs Laboratory Tests Test 10/23/18 14:58 10/23/18 17:19 10/23/18 20:48 10/24/18 02:27 Phosphorus Level 3.3 Bedside Glucose 148 202 187 Test 10/24/18 05:41 10/24/18 08:09 10/24/18 10:21 White Blood Count 8.5 Red Blood Count 4.97 Hemoglobin 15.4 Hematocrit 45.2 Mean Corpuscular Volume 90.9 Mean Corpuscular 31.0 Hemoglobin Mean Corpuscular 34.1 Hemoglobin Concent Red Cell Distribution 11.9 Width Platelet Count 275 Mean Platelet Volume 9.1 Immature Granulocytes % 0.400 Neutrophils % 64.4 Lymphocytes % 26.0 Monocytes % 8.4 Eosinophils % 0.6 Basophils % 0.2 Nucleated Red Blood 0.0 Cells % Immature Granulocytes # 0.030 Neutrophils # 5.5 Lymphocytes # 2.2 Monocytes # 0.7 Eosinophils # 0.1 Basophils # 0.0 Nucleated Red Blood 0.0 Cells # Sodium Level 138 Potassium Level 4.1 Chloride Level 103 Carbon Dioxide Level 23 Anion Gap 12 Blood Urea Nitrogen 24 H Creatinine 0.82 Est Glomerular Filtrat > 60 Rate mL/min Glucose Level 186 Calcium Level 9.5 Magnesium Level 2.1 Bedside Glucose 185 216 Medications Medication Current Medications Levetiracetam (Keppra) 2,000 mg BID PO Last administered on 10/24/18at 08:18; Admin Dose 2,000 MG; Start 10/22/18 at 21:00 Lacosamide (Vimpat Liq) 200 mg Q12 PO Last administered on 10/24/18at 08:19; Admin Dose 200 MG; Start 10/22/18 at 21:00 Lorazepam (Ativan) 2 mg Q2 PRN IV SEIZURES Last administered on 10/24/18 10:14; Admin Dose 2 MG; Start 10/22/18 at 21:00 Atenolol (Tenormin) 25 mg DAILY PO Last administered on 10/24/18 08:19; Admin Dose 25 MG; Start 10/22/18 at 21:00 Benazepril HCl (Lotensin) 5 mg DAILY PO Last administered on 10/24/18 08:18; Admin Dose 5 MG; Start 10/23/18 at 09:00 IV Flush (NS 3 ml) 3 ml PER PROTOCOL IV ; Start 10/22/18 at 21:00 Ondansetron HCl (Zofran Inj) 4 mg Q6H PRN IV NAUSEA/VOMITING; Start 10/22/18 at 21:00 Acetaminophen (Tylenol Tab) 650 mg Q6H PRN PO .PAIN 1-3 OR TEMP Last administered on 10/23/18 14:48; Admin Dose 650 MG; Start 10/22/18 at 21:00 Docusate Sodium (Colace) 100 mg Q12H PRN PO .CONSTIPATION; Start 10/22/18 at 21:00 Bisacodyl (Dulcolax) 5 mg DAILY PRN PO .CONSTIPATION; Start 10/22/18 at 21:00 Atorvastatin Calcium (Lipitor) 10 mg DAILY@21 PO Last administered on 10/23/18 20:49; Admin Dose 10 MG; Start 10/22/18 at 21:00 Thiamine HCl (Vitamin B1) 200 mg DAILY IM Last administered on 10/24/18 11:25; Admin Dose 200 MG; Start 10/23/18 at 09:00; Stop 10/26/18 at 08:59 Oxcarbazepine (Trileptal) 300 mg BID PO Last administered on 10/24/18 08:18; Admin Dose 300 MG; Start 10/23/18 at 21:00 Diagnostic Test (Pha) (Accu-Chek) 1 ea 02 XX ; Start 10/24/18 at 02:00 Insulin Glargine (Lantus) 10 units DAILY@2000 SC Last administered on 10/23/18 20:54; Admin Dose 10 UNITS; Start 10/23/18 at 20:00 Insulin Aspart (Novolog Insulin Pen) NOVOLOG *MILD* ALGORITHM WITH MEALS BEDTIME SC Last administered on 10/24/18at 08:15; Admin Dose 2 UNIT; Start 10/23/18 at 18:00 Miscellaneous Information 1 ea NOTE XX ; Start 10/23/18 at 15:30 Glucose (Glutose) 15 gm Q15M PRN PO DECREASED GLUCOSE; Start 10/23/18 at 15:30 Glucose (Glutose) 22.5 gm Q15M PRN PO DECREASED GLUCOSE; Start 10/23/18 at 15:30 Dextrose (D50w Syringe) 25 ml Q15M PRN IV DECREASED GLUCOSE; Start 10/23/18 at 15:30 Dextrose (D50w Syringe) 50 ml Q15M PRN IV DECREASED GLUCOSE; Start 10/23/18 at 15:30 Glucagon (Glucagen) 1 mg Q15M PRN IM DECREASED GLUCOSE; Start 10/23/18 at 15:30 Glucose (Glutose) 15 gm Q15M PRN BUCCAL DECREASED GLUCOSE; Start 10/23/18 at 15:30 Enoxaparin Sodium (Lovenox) 40 mg DAILY SC Last administered on 10/24/18at 08:16; Admin Dose 40 MG; Start 10/24/18 at 09:00 Acetaminophen/ Hydrocodone Bitart ([place] (5/325)) 1 tab Q6H PRN PO PAIN LEVEL 7-10; Start 10/23/18 at 17:30 MONE VICTOR Oct 24, 2018 12:14
[2018-10-24] MEDS: metFORMIN 500 MG TAB PO SCH ×2 (12:30→17:52)
[2018-10-24] MEDS: SOD CHLORIDE 0.9% 1,000 ML IV SCH ×2 (13:18→22:30)
[2018-10-24 14:00] VITALS: BP 124/84; PULSE 82; RESP 18
[2018-10-24 19:42] VITALS: BP 138/87; PULSE 82; RESP 18
[2018-10-24] MEDS: INSULIN GLARGINE [LANTus] (100 UNITS/ML) SYG SC SCH (21:35)
[2018-10-24] MEDS: ATORVASTATIN 10 MG TAB PO SCH (21:36)
[2018-10-25] MEDS: ACCU-CHEK XX SCH ×5 (01:06→21:17)
[2018-10-25 01:48] VITALS: BP 120/79; PULSE 75; RESP 18
[2018-10-25] MEDS: SOD CHLORIDE 0.9% 1,000 ML IV SCH (02:11)
--- NOTE | 2018-10-25 06:43 | EEG ---
EEG NOTE Report Details DATE OF TEST: 10/24/18 HISTORY: The patient is a 53-year-old M with reportedly epilepsy who presents with recurrent seizures. This EEG is requested to evaluate for seizures. SEDATION: None. CONDITIONS OF RECORDING: This EEG was recorded digitally on the [employer] machine, using the International 10-20 System of electrodes plus anterior temporals and [place]. STATES SAMPLED: Wakefulness and drowsiness. FINDINGS: The background is obscured by high frequency artifact throughout...frontally, and right hemispherically.. During wakefulness, there is a fragmentary 8 Hz posterior dominant rhythm.. No epileptiform discharges were seen. IMPRESSION: Technically limited electroencephalogram due to: high frequency artifact frontally and right hemispherically. RUPESH HARRELL Oct 25, 2018 06:43
[2018-10-25 07:58] VITALS: BP 136/78; PULSE 84; RESP 17
[2018-10-25] MEDS: INSULIN ASPART [NOVOLOG] 3 ML PEN SC SCH ×4 (08:38→21:00)
[2018-10-25] MEDS: ENOXAPARIN 40 MG/0.4 ML SYG SC SCH (08:39)
[2018-10-25] MEDS: LACOSAMIDE (100 MG/10 ML PO SYR) PO SCH ×2 (08:40→21:05)
[2018-10-25] MEDS: BENAZEPRIL 5 MG TAB PO SCH (08:40)
[2018-10-25] MEDS: OXCARBAZEPINE 300 MG TAB PO SCH ×2 (08:40→21:05)
[2018-10-25] MEDS: LEVETIRACETAM 500 MG TAB PO SCH ×2 (08:40→21:05)
[2018-10-25] MEDS: metFORMIN 500 MG TAB PO SCH ×2 (08:41→17:19)
[2018-10-25] MEDS: ATENOLOL 25 MG TAB PO SCH (08:41)
[2018-10-25] MEDS: THIAMINE 200 MG INJ IM SCH ×2 (09:00→10:14)
--- NOTE | 2018-10-25 10:27 | CONS ---
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 He reports medication compliance. Head CT is notable for chronic R temporal encephalomalacia.. Of note, he has tried Dilantin in the past P: Continue Vimpat and Keppra per ops for now Continue Trileptal 300mg bid for now, to be titrated to goal as an outpatient Ativan iv prn prolonged seizure or cluster Await Vimpat and Keppra levels to corroborate medication compliance Advised to consider Epilepsy Monitoring Unit admission as an outpatient, for further characterization of frequent spells.. OK to defer MRI brain for now PT/OT/ST as necessary Other management per primary Will follow clinically Consultation Date/Type/Reason Admit Date/Time Oct 22, 2018 at 20:32 Type of Consult Neurology Reason for Consultation seizure Requesting Provider: SALO CHAUDHRY Date/Time of Note DATE: 10/25/18 TIME: 10:25 24 HR Interval Summary Free Text/Dictation Notes feeling fatigued.. Exam Vital Signs Vitals Vital Signs Date Temp Pulse Resp B/P (MAP) Pulse Ox O2 O2 Flow FiO2 Time Delivery Rate 10/25/18 98.2 84 17 136/78 95 07:58 (97) 10/24/18 Room Air 14:00 Intake and Output 10/24/18 10/24/18 10/25/18 1515:00 23:00 07:00 IntakeIntake Total 1060 ml 380 ml 1278 ml OutputOutput Total 600 ml 1000 ml BalanceBalance 460 ml 380 ml 278 ml Exam PE: Gen Appearance: No Apparent Distress HEENT: Normocephalic Cardiovascular: Regular rat Abdomen: Soft Extremities: Dry NE: The patient was alert and oriented. Language was normal. Fund of knowledge was normal. Pupils were equal and reactive to light. There was no afferent pupillary defect. Visual grant were normal. Funduscopic examination was limited. Extra-ocular movements were full. Ptosis was absent. There was no nystagmus. Facial sensation was normal. Face was symmetric with normal strength. Hearing was intact. Palate movements were normal. Neck strength was normal. There was normal tongue bulk and speed of movement. Tone was normal. Muscle bulk was normal. I did not see fasciculations. Arms and legs were strong. Vibration sensation was normal. Temperature and pinprick sensation was normal. Rapid alternating movements were normal. There was no dysmetria. There was no intention tremor. Gait was deferred due to bedrest. Arm and leg reflexes weresymmetric. Mi's sign was absent. Plantar responses were flexor. RUPESH HARRELL Oct 25, 2018 10:27
--- NOTE | 2018-10-25 12:44 | PSY ---
Date/Time of Note Date/Time of Note DATE: 10/25/18 TIME: 12:38 Psychiatric Subjective Eval Consent Pt consented to telemedicine: No Subjective Evaluation Patient location: inpatient Chief Complaint: biba fr home, possible seizure denies alcohol use. History of present illness Patient is a 53-year-old male currently IN [facility] for seizure disorder. On a [id number] evaluation patient denied any psychiatric history denied any feeling of hopelessness, denied hearing voices, denied suicidal ideation and contracted for safety. Patient states he had history of alcohol abuse in the past but denied any recent to use. Patient story is somewhat conflicting because record shows that he he use alcohol prior to admission to the hospital and uses marijuana on a daily basis. Patient is currently preoccupied about benzo for seizures, will leave it up to the the rubber block layer to manage the medications as far as seizure is concerned. Past psychiatric history Denies Hospitalization: other Medical history Problems Medical Problems: (1) Accidental overdose Status: Acute (2) Aspiration pneumonia Status: Acute (3) Breakthrough seizure Status: Acute (4) Encephalopathy acute Status: Acute (5) Encounter for medication refill Status: Acute (6) Generalized tonic-clonic seizure Status: Acute (7) History of seizure disorder Status: Acute (8) Hyperglycemia without ketosis Status: Acute (9) Hypernatremia Status: Acute (10) Hypertension Status: Acute (11) Leukocytosis Status: Acute (12) Seizure disorder Status: Acute (13) Seizures Status: Acute (14) Shaking Status: Acute (15) Status epilepticus Status: Acute (16) Subtherapeutic serum dilantin level Status: Acute (17) Transaminitis Status: Acute (18) Tremor Status: Acute (19) Ventilatory failure Status: Acute Allergies: Coded Allergies: Penicillins (Verified Allergy, Mild, 10/22/18) Substance Abuse Substance abuse history: Yes Prior substance abuse treatmen: No Social History Marital status: other DPA/Conservatorship: No Psychiatric Objective Eval Review of Systems: Review of Systems: Not Applicable Physical Examination: Physical Examination: Not Applicable Appetite: Adequate Energy: Adequate Interest: Adequate Mental Status Examination: Appearance: Disheveled Eye Contact: Fair Behavior: Cooperative Speech: Clear, Soft AFFECT: Appropriate Mood: Appropriate/Full Though Process: Linear Suicidal: No Homicidal: No On 72 hour hold: No Orientation: x4 Cognition: Alert Insight: Intact Judgement: Intact Attention Span: Distractible Laboratory Results Laboratory Tests Test 10/23/18 14:58 10/23/18 17:19 10/23/18 20:48 10/24/18 02:27 Phosphorus Level 3.3 mg/dl Bedside Glucose 148 mg/dL 202 mg/dL 187 mg/dL Test 10/24/18 05:41 10/24/18 08:09 10/24/18 10:21 10/24/18 12:13 White Blood Count 8.5 10^3/ul Red Blood Count 4.97 10^6/ul Hemoglobin 15.4 g/dl Hematocrit 45.2 % Mean Corpuscular 90.9 fl Volume Mean Corpuscular 31.0 pg Hemoglobin Mean Corpuscular 34.1 g/dl Hemoglobin Concen t Red Cell 11.9 % Distribution Width Platelet Count 275 10^3/UL Mean Platelet 9.1 fl Volume Immature 0.400 % Granulocytes % Neutrophils % 64.4 % Lymphocytes % 26.0 % Monocytes % 8.4 % Eosinophils % 0.6 % Basophils % 0.2 % Nucleated Red 0.0 /100WBC Blood Cells % Immature 0.030 10^3/ul Granulocytes # Neutrophils # 5.5 10^3/ul Lymphocytes # 2.2 10^3/ul Monocytes # 0.7 10^3/ul Eosinophils # 0.1 10^3/ul Basophils # 0.0 10^3/ul Nucleated Red 0.0 10^3/ul Blood Cells # Sodium Level 138 mmol/L Potassium Level 4.1 mmol/L Chloride Level 103 mmol/L Carbon Dioxide 23 mmol/L Level Anion Gap 12 Blood Urea 24 mg/dl Nitrogen Creatinine 0.82 mg/dl Est Glomerular > 60 mL/min Filtrat Rate mL/min Glucose Level 186 mg/dl Calcium Level 9.5 mg/dl Magnesium Level 2.1 mg/dl Bedside Glucose 185 mg/dL 216 mg/dL 333 mg/dL Test 10/24/18 17:51 10/24/18 21:32 10/25/18 06:55 10/25/18 07:05 Bedside Glucose 187 mg/dL 138 mg/dL Urine Color YELLOW Urine Clarity CLEAR Urine pH 5.0 Urine Specific 1.011 Sagle Urine Ketones NEGATIVE mg/dL Urine Nitrite NEGATIVE mg/dL Urine Bilirubin NEGATIVE mg/dL Urine NEGATIVE mg/dL Urobilinogen Urine Leukocyte NEGATIVE Meeta/ul Esterase Urine Hemoglobin NEGATIVE mg/dL Urine Glucose NEGATIVE mg/dL Urine Total NEGATIVE mg/dl Protein Urine Opiates Negative Screen Urine Negative Barbiturates Urine Negative Amphetamines Screen Urine Negative Benzodiazepines Screen Urine Cocaine Negative Screen Urine Positive Cannabinoids White Blood Count 7.7 10^3/ul Red Blood Count 4.60 10^6/ul Hemoglobin 14.4 g/dl Hematocrit 41.6 % Mean Corpuscular 90.4 fl Volume Mean Corpuscular 31.3 pg Hemoglobin Mean Corpuscular 34.6 g/dl Hemoglobin Concen t Red Cell 11.5 % Distribution Width Platelet Count 256 10^3/UL Mean Platelet 9.0 fl Volume Immature 0.400 % Granulocytes % Neutrophils % 64.6 % Lymphocytes % 25.3 % Monocytes % 8.1 % Eosinophils % 1.2 % Basophils % 0.4 % Nucleated Red 0.0 /100WBC Blood Cells % Immature 0.030 10^3/ul Granulocytes # Neutrophils # 5.0 10^3/ul Lymphocytes # 1.9 10^3/ul Monocytes # 0.6 10^3/ul Eosinophils # 0.1 10^3/ul Basophils # 0.0 10^3/ul Nucleated Red 0.0 10^3/ul Blood Cells # Sodium Level 136 mmol/L Potassium Level 3.7 mmol/L Chloride Level 105 mmol/L Carbon Dioxide 24 mmol/L Level Anion Gap 7 Blood Urea 15 mg/dl Nitrogen Creatinine 0.75 mg/dl Est Glomerular > 60 mL/min Filtrat Rate mL/min Glucose Level 140 mg/dl Calcium Level 8.9 mg/dl Test 10/25/18 08:23 10/25/18 12:16 Bedside Glucose 152 mg/dL 137 mg/dL Assessment and Plan Recommendation/Plan Multiple antipsychotics: No Discharge Disposition: Other Legal Status: Voluntary (Does not meet criteria for inpatient psychiatric hospitalization) CAROL BARRAGAN NP Oct 25, 2018 12:44
[2018-10-25 13:59] VITALS: BP 115/81; PULSE 86; RESP 17
--- NOTE | 2018-10-25 18:21 | PN ---
Date/Time of Note Date/Time of Note DATE: 10/25/18 TIME: 18:20 Assessment/Plan VTE Prophylaxis Risk score (from Nsg)>0 risk: 2 SCD applied (from Nsg): Yes Pharmacological prophylaxis: heparin Lines/Catheters IV Catheter Type (from Nrs): Peripheral IV Assessment/Plan Hospital Course 53 yo male with epilepsy here for seizures: - Medication management per neurology 1. Tremor / jerk like movements in patient with hx of seizure d/o -This is a definitely not breakthrough seizures, I am uncertain what they are however, will defer to neurology -s/p VENA neurostimulator device -We will likely need 24-hour EEG monitoring 2. prev CVA with temporal lobe encephalomalacia -seizure focus? 3. DM 2: -new diagnosis?, a1c 8.5 , patient was Prediabetic prior -SSI, diabetic education and diet 4. HTN -controlled on home meds 5. Chronic depression -continue home meds 6. heavy marijuana user -may be contributing to #1, patient states he uses marijuana use, though he is unsure as he has been having memory loss likely related to #2 7. Chronic memory loss. -Patient does not seem to remember much. Regarding his social status, he is disabled and resides with a disabled girlfriend. They have a caregiver who comes to check on them for 3 hours/day. This is the one who is small aware of his medical history and problems. Patient is an extremely poor historian Result Diagram: 10/25/18 0710/25/18 0705 Results 24hrs Laboratory Tests Test 10/24/18 21:32 10/25/18 06:55 10/25/18 07:05 10/25/18 08:23 Bedside Glucose 138 152 Urine Color YELLOW Urine Clarity CLEAR Urine pH 5.0 Urine Specific Foley 1.011 Urine Ketones NEGATIVE Urine Nitrite NEGATIVE Urine Bilirubin NEGATIVE Urine Urobilinogen NEGATIVE Urine Leukocyte Esterase NEGATIVE Urine Hemoglobin NEGATIVE Urine Glucose NEGATIVE Urine Total Protein NEGATIVE Urine Opiates Screen Negative Urine Barbiturates Negative Urine Amphetamines Negative Screen Urine Benzodiazepines Negative Screen Urine Cocaine Screen Negative Urine Cannabinoids Positive White Blood Count 7.7 Red Blood Count 4.60 L Hemoglobin 14.4 Hematocrit 41.6 L Mean Corpuscular Volume 90.4 Mean Corpuscular 31.3 Hemoglobin Mean Corpuscular 34.6 Hemoglobin Concent Red Cell Distribution 11.5 Width Platelet Count 256 Mean Platelet Volume 9.0 Immature Granulocytes % 0.400 Neutrophils % 64.6 Lymphocytes % 25.3 Monocytes % 8.1 Eosinophils % 1.2 Basophils % 0.4 Nucleated Red Blood 0.0 Cells % Immature Granulocytes # 0.030 Neutrophils # 5.0 Lymphocytes # 1.9 Monocytes # 0.6 Eosinophils # 0.1 Basophils # 0.0 Nucleated Red Blood 0.0 Cells # Sodium Level 136 Potassium Level 3.7 Chloride Level 105 Carbon Dioxide Level 24 Anion Gap 7 Blood Urea Nitrogen 15 # Creatinine 0.75 Est Glomerular Filtrat > 60 Rate mL/min Glucose Level 140 # Calcium Level 8.9 Test 10/25/18 12:16 10/25/18 17:10 Bedside Glucose 137 173 Subjective 24 Hr Interval Summary Free Text/Dictation No further seizures Feels well Exam/Review of Systems Exam Vitals Vital Signs Date Temp Pulse Resp B/P (MAP) Pulse Ox O2 O2 Flow FiO2 Time Delivery Rate 10/25/18 98.4 86 17 115/81 94 13:59 (92) 10/24/18 Room Air 14:00 Intake and Output 10/24/18 10/24/18 10/25/18 1515:00 23:00 07:00 IntakeIntake Total 1060 ml 380 ml 1278 ml OutputOutput Total 600 ml 1000 ml BalanceBalance 460 ml 380 ml 278 ml Constitutional: alert, oriented, well developed Psych: no complaints, nl mood/affect Head: normocephalic, atraumatic Eyes: nl conjunctiva, EOMI, nl lids, nl sclera, PERRL ENMT: nl external ears & nose, nl lips & teeth, nl nasal mucosa & septum Neck: supple, non-tender Respiratory: clear to auscultation, normal air movement Cardiovascular: regular rate and rhythm, nl pulses Gastrointestinal: soft, nl liver, spleen, non-tender Musculoskeletal: nl extremities to inspection, nl gait and stance Extremities: normal pulses Neurological: SEAMER II-XII intact, nl mental status, nl speech, nl strength Skin: nl turgor; No rash or lesions Lymph: nl lymph nodes Results Results 24hrs Laboratory Tests Test 10/24/18 21:32 10/25/18 06:55 10/25/18 07:05 10/25/18 08:23 Bedside Glucose 138 152 Urine Color YELLOW Urine Clarity CLEAR Urine pH 5.0 Urine Specific Foley 1.011 Urine Ketones NEGATIVE Urine Nitrite NEGATIVE Urine Bilirubin NEGATIVE Urine Urobilinogen NEGATIVE Urine Leukocyte Esterase NEGATIVE Urine Hemoglobin NEGATIVE Urine Glucose NEGATIVE Urine Total Protein NEGATIVE Urine Opiates Screen Negative Urine Barbiturates Negative Urine Amphetamines Negative Screen Urine Benzodiazepines Negative Screen Urine Cocaine Screen Negative Urine Cannabinoids Positive White Blood Count 7.7 Red Blood Count 4.60 L Hemoglobin 14.4 Hematocrit 41.6 L Mean Corpuscular Volume 90.4 Mean Corpuscular 31.3 Hemoglobin Mean Corpuscular 34.6 Hemoglobin Concent Red Cell Distribution 11.5 Width Platelet Count 256 Mean Platelet Volume 9.0 Immature Granulocytes % 0.400 Neutrophils % 64.6 Lymphocytes % 25.3 Monocytes % 8.1 Eosinophils % 1.2 Basophils % 0.4 Nucleated Red Blood 0.0 Cells % Immature Granulocytes # 0.030 Neutrophils # 5.0 Lymphocytes # 1.9 Monocytes # 0.6 Eosinophils # 0.1 Basophils # 0.0 Nucleated Red Blood 0.0 Cells # Sodium Level 136 Potassium Level 3.7 Chloride Level 105 Carbon Dioxide Level 24 Anion Gap 7 Blood Urea Nitrogen 15 # Creatinine 0.75 Est Glomerular Filtrat > 60 Rate mL/min Glucose Level 140 # Calcium Level 8.9 Test 10/25/18 12:16 10/25/18 17:10 Bedside Glucose 137 173 Medications Medication Current Medications Levetiracetam (Keppra) 2,000 mg BID PO Last administered on 10/25/18 08:40; Admin Dose 2,000 MG; Start 10/22/18 at 21:00 Lacosamide (Vimpat Liq) 200 mg Q12 PO Last administered on 10/25/18 08:40; Admin Dose 200 MG; Start 10/22/18 at 21:00 Lorazepam (Ativan) 2 mg Q2 PRN IV SEIZURES Last administered on 10/24/18 10:14; Admin Dose 2 MG; Start 10/22/18 at 21:00 Atenolol (Tenormin) 25 mg DAILY PO Last administered on 10/25/18 08:41; Admin Dose 25 MG; Start 10/22/18 at 21:00 Benazepril HCl (Lotensin) 5 mg DAILY PO Last administered on 10/25/18 08:40; Admin Dose 5 MG; Start 10/23/18 at 09:00 IV Flush (NS 3 ml) 3 ml PER PROTOCOL IV ; Start 10/22/18 at 21:00 Ondansetron HCl (Zofran Inj) 4 mg Q6H PRN IV NAUSEA/VOMITING; Start 10/22/18 at 21:00 Acetaminophen (Tylenol Tab) 650 mg Q6H PRN PO .PAIN 1-3 OR TEMP Last administered on 10/23/18at 14:48; Admin Dose 650 MG; Start 10/22/18 at 21:00 Docusate Sodium (Colace) 100 mg Q12H PRN PO .CONSTIPATION; Start 10/22/18 at 2 1:00 Bisacodyl (Dulcolax) 5 mg DAILY PRN PO .CONSTIPATION; Start 10/22/18 at 21:00 Atorvastatin Calcium (Lipitor) 10 mg DAILY@21 PO Last administered on 10/24/18at 21:36; Admin Dose 10 MG; Start 10/22/18 at 21:00 Thiamine HCl (Vitamin B1) 200 mg DAILY IM Last administered on 10/25/18at 10:14; Admin Dose 200 MG; Start 10/23/18 at 09:00; Stop 10/26/18 at 08:59 Oxcarbazepine (Trileptal) 300 mg BID PO Last administered on 10/25/18at 08:40; Admin Dose 300 MG; Start 10/23/18 at 21:00 Diagnostic Test (Pha) (Accu-Chek) 1 ea 02 XX ; Start 10/24/18 at 02:00 Insulin Glargine (Lantus) 10 units DAILY@2000 SC Last administered on 10/24/18at 21:35; Admin Dose 10 UNITS; Start 10/23/18 at 20:00 Insulin Aspart (Novolog Insulin Pen) NOVOLOG *MILD* ALGORITHM WITH MEALS BEDTIME SC Last administered on 10/25/18at 17:17; Admin Dose 1 UNIT; Start 10/23/18 at 18:00 Miscellaneous Information 1 ea NOTE XX ; Start 10/23/18 at 15:30 Glucose (Glutose) 15 gm Q15M PRN PO DECREASED GLUCOSE; Start 10/23/18 at 15:30 Glucose (Glutose) 22.5 gm Q15M PRN PO DECREASED GLUCOSE; Start 10/23/18 at 15:30 Dextrose (D50w Syringe) 25 ml Q15M PRN IV DECREASED GLUCOSE; Start 10/23/18 at 15:30 Dextrose (D50w Syringe) 50 ml Q15M PRN IV DECREASED GLUCOSE; Start 10/23/18 at 15:30 Glucagon (Glucagen) 1 mg Q15M PRN IM DECREASED GLUCOSE; Start 10/23/18 at 15:30 Glucose (Glutose) 15 gm Q15M PRN BUCCAL DECREASED GLUCOSE; Start 10/23/18 at 15:30 Enoxaparin Sodium (Lovenox) 40 mg DAILY SC Last administered on 10/25/18at 08:39; Admin Dose 40 MG; Start 10/24/18 at 09:00 Acetaminophen/ Hydrocodone Bitart (Dulce (5/325)) 1 tab Q6H PRN PO PAIN LEVEL 7-10; Start 10/23/18 at 17:30 Metformin HCl (Glucophage) 500 mg BID WITH MEALS PO Last administered on 10/25/18at 17:19; Admin Dose 500 MG; Start 10/24/18 at 12:30 Diagnostic Test (Pha) (Accu-Chek) 1 ea AC MEALS AND BEDTIME XX Last administered on 10/25/18at 17:16; Admin Dose 1 EA; Start 10/24/18 at 17:30 PEE MURDOCK MD Oct 25, 2018 18:21
[2018-10-25 19:50] VITALS: BP 144/92; PULSE 94; RESP 16
[2018-10-25] MEDS: INSULIN GLARGINE [LANTus] (100 UNITS/ML) SYG SC SCH (21:04)
[2018-10-25] MEDS: ATORVASTATIN 10 MG TAB PO SCH (21:05)
[2018-10-26] MEDS: ACCU-CHEK XX SCH ×3 (01:06→11:30)
[2018-10-26 02:00] VITALS: BP 125/81; PULSE 85; RESP 16
[2018-10-26] MEDS: INSULIN ASPART [NOVOLOG] 3 ML PEN SC SCH ×2 (08:00→11:58)
[2018-10-26 08:05] VITALS: BP 140/88; PULSE 68; RESP 18
[2018-10-26] MEDS: ENOXAPARIN 40 MG/0.4 ML SYG SC SCH (08:47)
[2018-10-26] MEDS: LACOSAMIDE (100 MG/10 ML PO SYR) PO SCH (08:47)
[2018-10-26] MEDS: OXCARBAZEPINE 300 MG TAB PO SCH (08:48)
[2018-10-26] MEDS: LEVETIRACETAM 500 MG TAB PO SCH (08:48)
[2018-10-26] MEDS: metFORMIN 500 MG TAB PO SCH (08:48)
[2018-10-26] MEDS: BENAZEPRIL 5 MG TAB PO SCH (08:49)
[2018-10-26] MEDS: ATENOLOL 25 MG TAB PO SCH (08:49)
--- NOTE | 2018-10-26 09:48 | CONS ---
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 He reports medication compliance. Head CT is notable for chronic R temporal encephalomalacia.. Vimpat and Keppra levels are in process, to corroborate medication compliance Of note, he has tried Dilantin in the past P: Continue Vimpat and Keppra per ops for now Continue Trileptal 300mg bid for now, to be titrated to goal as an outpatient Ativan iv prn prolonged seizure or cluster Advised to consider Epilepsy Monitoring Unit admission as an outpatient, for further characterization of frequent spells.. PT/OT/ST as necessary Other management per primary Will follow clinically Consultation Date/Type/Reason Admit Date/Time Oct 22, 2018 at 20:32 Type of Consult Neurology Reason for Consultation seizure Requesting Provider: SALO CHAUDHRY Date/Time of Note DATE: 10/26/18 TIME: 09:46 24 HR Interval Summary Free Text/Dictation Continues acute care Exam Vital Signs Vitals Vital Signs Date Temp Pulse Resp B/P (MAP) Pulse Ox O2 O2 Flow FiO2 Time Delivery Rate 10/26/18 97.9 68 18 140/88 98 Room Air 08:05 (105) Intake and Output 10/25/18 10/25/18 10/26/18 1515:00 23:00 07:00 IntakeIntake Total 1180 ml 1000 ml OutputOutput Total 1100 ml 750 ml 400 ml BalanceBalance 80 ml 250 ml -400 ml Exam Comprehensive completed; stable from prior RUPESH HARRELL Oct 26, 2018 09:48
[2018-10-26] MEDS ORDERED: LACO200T2 PO (11:25)
[2018-10-26] MEDS ORDERED: LEVE10006 PO (11:25)
[2018-10-26] MEDS ORDERED: OXCA300T41 PO (11:25)
--- NOTE | 2018-10-26 11:34 | DS ---
Date/Time of Note Date/Time of Note DATE: 10/26/18 TIME: 11:28 Discharge Summary Admission/Discharge Info Admit Date/Time Oct 22, 2018 at 20:32 Discharge Date/Time Discharge Diagnosis Epilepsy Patient Condition: Stable Hospital Course 53 yo male with epilepsy here for seizures: - Medication was managed per neurology. No further seizure activity - Discharged home on AEDs - Advised to follow up with his neurologist in clinic Home Meds Reported Medications Cholecalciferol* (Vitamin D3*) 1,000 Unit Tablet, 1000 UNIT PO DAILY, TAB 10/22/18 Simvastatin* (Zocor*) 20 Mg Tablet, 20 MG PO QHS, #30 TAB 10/22/18 Benazepril Hcl* (Benazepril Hcl*) 5 Mg Tablet, 5 MG PO DAILY, #30 TAB 10/22/18 Lacosamide (Vimpat) 200 Mg Tablet, 200 MG PO BID, TAB 10/22/18 Escitalopram Oxalate* (Escitalopram Oxalate*) 10 Mg Tablet, 10 MG PO DAILY, #30 TAB 10/22/18 Loratadine* (Loratadine*) 10 Mg Tablet, 10 MG PO DAILY, #30 TAB 10/22/18 Levetiracetam* (Levetiracetam*) 1,000 Mg Tablet, 2000 MG PO BID, TAB 10/22/18 Atenolol* (Atenolol*) 25 Mg Tablet, 25 MG PO DAILY, #30 TAB 10/22/18 Hydrochlorothiazide* (Hydrochlorothiazide*) 25 Mg Tab, 25 MG PO DAILY, #30 TAB 10/22/18 Discontinued Reported Medications Ergocalciferol (Vitamin D2) (VITAMIN D2) 50,000 Unit Capsule, 39312 UNIT PO Q7D, CAP 03/20/18 Lacosamide (Vimpat) 200 Mg Tablet, 200 MG PO BID, TAB 03/20/18 Escitalopram Oxalate* (Escitalopram Oxalate*) 10 Mg Tablet, 10 MG PO DAILY, #30 TAB 03/20/18 Benazepril Hcl* (Benazepril Hcl*) 5 Mg Tablet, 5 MG PO DAILY, #30 TAB 03/20/18 Atenolol* (Atenolol*) 25 Mg Tablet, 25 MG PO DAILY, #30 TAB 03/20/18 Hydrochlorothiazide* (Hydrochlorothiazide*) 25 Mg Tab, 25 MG PO DAILY, #30 TAB 03/20/18 Simvastatin* (Zocor*) 20 Mg Tablet, 20 MG PO QHS, #30 TAB 03/20/18 Loratadine* (Loratadine*) 10 Mg Tablet, 10 MG PO DAILY, #30 TAB 03/20/18 Levetiracetam* (Levetiracetam*) 1,000 Mg Tablet, 2000 MG PO BID, TAB 03/20/18 Primary Care Provider Not On Staff Doctor Pending Labs Laboratory Tests Test 10/25/18 12:16 10/25/18 17:10 10/25/18 21:02 10/26/18 06:35 Bedside 137 173 135 Glucose mg/dL (70-220) mg/dL (70-220) mg/dL (70-220) White Blood 7.1 Count 10^3/ul (4.8-1 0.8) Red Blood 4.64 Count 10^6/ul (4.70- 6.10) Hemoglobin 14.3 g/dl (14.0-18. 0) Hematocrit 40.8 % (42.0-52.0) Mean 87.9 Corpuscular fl (82.0-101.0 Volume ) Mean 30.8 Corpuscular pg (29.0-33.0) Hemoglobin Mean 35.0 Corpuscular g/dl (32.0-37. Hemoglobin Conc 0) ent Red Cell 11.6 Distribution % (11.5-14.5) Width Platelet Count 283 10^3/UL (140-4 15) Mean Platelet 8.9 Volume fl (7.4-10.4) Immature 0.400 Granulocytes % % (0.001-0.429 ) Neutrophils % 58.9 % (39.0-77.0) Lymphocytes % 30.3 % (15.0-51.0) Monocytes % 8.3 % (0.0-11.0) Eosinophils % 1.7 % (0.0-7.0) Basophils % 0.4 % (0.0-2.0) Nucleated Red 0.0 Blood Cells % /100WBC (0.0-0 .0) Immature 0.030 Granulocytes # 10^3/ul (0.0-0 .031) Neutrophils # 4.2 10^3/ul (1.6-7 .5) Lymphocytes # 2.2 10^3/ul (0.8-2 .9) Monocytes # 0.6 10^3/ul (0.3-0 .9) Eosinophils # 0.1 10^3/ul (0.0-0 .5) Basophils # 0.0 10^3/ul (0.0-0 .1) Nucleated Red 0.0 Blood Cells # 10^3/ul (0.0-0 .0) Sodium Level 137 mmol/L (135-14 4) Potassium 3.8 Level mmol/L (3.5-5. 1) Chloride Level 102 mmol/L (97-110 ) Carbon Dioxide 23 Level mmol/L (21-31) Anion Gap 12 (5-13) Blood Urea 17 Nitrogen mg/dl (7-20) Creatinine 0.70 mg/dl (0.61-1. 24) Est Glomerular > 60 Filtrat mL/min (>60) Rate mL/min Glucose Level 146 mg/dl (70-220) Calcium Level 9.2 mg/dl (8.4-10. 2) Test 10/26/18 08:20 Bedside 133 Glucose mg/dL (70-220) PEE MURDOCK MD Oct 26, 2018 11:34
[2018-10-26] MEDS: LORAZEPAM 2 MG INJ IV PRN (11:51)
== END 2018-10-26 15:30 | disposition home or self-care (01) | DRG 101 ==
LOC: E/R 16:05 → 5EC 20:32 → EDBEDREQSVC 10-23 12:45 → 5EC 10-23 14:30
PROVIDERS: ADMIT Family Medicine; ATTEND Family Medicine
DX: G40.909 Epilepsy, unspecified, not intractable, without status epilepticus (principal); E11.8 Type 2 diabetes mellitus with unspecified complications; I25.10 Atherosclerotic heart disease of native coronary artery without angina pectoris; I10 Essential (primary) hypertension; F32.9 Major depressive disorder, single episode, unspecified; I69.398 Other sequelae of cerebral infarction; G93.89 Other specified disorders of brain; R41.3 Other amnesia
CPT/HCPCS: 36415; 70450; 71045; 80048; 80053; 80061; 80177; 80185; 80307; 81003; 82962; 83036; 83735; 84100; 84443; 85025; 85610; 85730; 93005; 95819; 96374; 96375; J1165; J1650; J1815; J2060; J3411; J7030